=== PATIENT | female | born 1950 | race Caucasian/White ===

== ENCOUNTER → 2023-01-14 | Outpatient (REF) | payer MEDICARE, MEDICAID, SELFPAY ==
[2023-01-14 09:44] LABS: Absolute Lymphocyte Count 1.78 X10^3/uL (0.83-4.51); Absolute Neutrophil Count 5.6 X10^3/uL (2.0-7.7); Basophil# 0.03 X10^3/uL; Basophil% 0.4 % (0-1); Lymphocyte # 1.78 X10^3/ul (0.83-4.51); Lymphocyte % 21.8 % (19-41); Mean Corp Hgb Conc 28.6 g/dL (32-36); Mean Corpuscular Volume 94.3 fL (81-99); Mean Platelet Vol. 10.2 fl (6.2-12.0); Monocyte# 0.58 X10^3/uL; Monocyte% 7.1 % (0-10); NRBC Flagged by Analyzer 0 % (0-5); Neutrophil % 68.7 % (47-70); Platelet Count 566 K/mm3 (150-450); RBC Distribution Width CV 16.8 % (11.6-14.6); RBC Distribution Width SD 57.7 fl (35.1-43.9); Red Blood Count 3.71 M/mm3 (4.2-5.4); White Blood Count 8.2 K/mm3 (4.4-11.0)
[2023-01-14 09:59] LABS: Anion Gap 6 (5-15); BUN 12 mg/dL (7-18); BUN/Creat Ratio 25.7 RATIO (10-20); Calcium,Total 9.4 mg/dL (8.5-10.1); Chloride 107 mmol/L (98-107); Creatinine, Serum 0.47 mg/dL (0.55-1.02); EST Glomerular Filtration Rate 140 mL/min (>60); Est Glom Filt Rate - Afr Amer 169 mL/min (>60); Glucose 88 mg/dL (74-106); Sodium Level 140 mmol/L (136-145)
== END ==
LOC: OLS.WHLEAS 05:00
PROVIDERS: PCP Family Medicine; Visit Provider Internal Medicine
DX: I50.9 Heart failure, unspecified (principal)
CPT/HCPCS: 36415; 80048; 85025

== ENCOUNTER → 2023-01-15 | Outpatient (REF) | payer BC, MEDICAID, SELFPAY | LOC: OLS.WHLEAS 19:30 | PROVIDERS: PCP Family Medicine; Visit Provider Internal Medicine | DX: R19.7 Diarrhea, unspecified (principal); S82.401D Unspecified fracture of shaft of right fibula, subsequent encounter for closed fracture with routine healing | CPT/HCPCS: 87493 ==

== ENCOUNTER → 2023-01-21 | Outpatient (REF) | payer MEDICARE, MEDICAID, SELFPAY ==
[2023-01-21 08:43] LABS: Absolute Lymphocyte Count 1.43 X10^3/uL (0.83-4.51); Absolute Neutrophil Count 6.5 X10^3/uL (2.0-7.7); Basophil# 0.03 X10^3/uL; Basophil% 0.3 % (0-1); Lymphocyte # 1.43 X10^3/ul (0.83-4.51); Lymphocyte % 16.1 % (19-41); Mean Corp Hgb Conc 28.6 g/dL (32-36); Mean Corpuscular Hgb 26.4 pg (27.0-32.0); Mean Corpuscular Volume 92.3 fL (81-99); Mean Platelet Vol. 10.4 fl (6.2-12.0); Monocyte# 0.83 X10^3/uL; Monocyte% 9.3 % (0-10); NRBC Flagged by Analyzer 0 % (0-5); Neutrophil # 6.51 X10^3/uL (2.7-7.7); Neutrophil % 73.4 % (47-70); Platelet Count 560 K/mm3 (150-450); RBC Distribution Width CV 16.6 % (11.6-14.6); RBC Distribution Width SD 56.7 fl (35.1-43.9); Red Blood Count 3.79 M/mm3 (4.2-5.4); White Blood Count 8.9 K/mm3 (4.4-11.0)
[2023-01-21 08:58] LABS: Anion Gap 4 (5-15); BUN 10 mg/dL (7-18); BUN/Creat Ratio 21.9 RATIO (10-20); Calcium,Total 9.8 mg/dL (8.5-10.1); Chloride 103 mmol/L (98-107); Creatinine, Serum 0.46 mg/dL (0.55-1.02); EST Glomerular Filtration Rate 144 mL/min (>60); Est Glom Filt Rate - Afr Amer 174 mL/min (>60); Glucose 103 mg/dL (74-106); Potassium 4.2 mmol/L (3.5-5.1); Sodium Level 137 mmol/L (136-145)
== END ==
LOC: OLS.WHLEAS 05:00
PROVIDERS: PCP Family Medicine; Visit Provider Internal Medicine
DX: I50.9 Heart failure, unspecified (principal)
CPT/HCPCS: 36415; 80048; 85025

== ENCOUNTER → 2023-01-28 | Outpatient (REF) | payer MEDICARE, MEDICAID, SELFPAY ==
[2023-01-28 07:03] LABS: Absolute Lymphocyte Count 1.32 X10^3/uL (0.83-4.51); Absolute Neutrophil Count 6.1 X10^3/uL (2.0-7.7); Basophil# 0.03 X10^3/uL; Basophil% 0.4 % (0-1); Hematocrit 34.2 % (37-47); Hemoglobin 9.5 g/dL (12.0-15.0); Lymphocyte # 1.32 X10^3/ul (0.83-4.51); Lymphocyte % 15.9 % (19-41); Mean Corp Hgb Conc 27.8 g/dL (32-36); Mean Corpuscular Hgb 25.7 pg (27.0-32.0); Mean Corpuscular Volume 92.4 fL (81-99); Mean Platelet Vol. 10.2 fl (6.2-12.0); Monocyte# 0.72 X10^3/uL; Monocyte% 8.7 % (0-10); NRBC Flagged by Analyzer 0 % (0-5); Neutrophil # 6.11 X10^3/uL (2.7-7.7); Neutrophil % 73.7 % (47-70); Platelet Count 446 K/mm3 (150-450); RBC Distribution Width CV 17.1 % (11.6-14.6); RBC Distribution Width SD 58.3 fl (35.1-43.9); White Blood Count 8.3 K/mm3 (4.4-11.0)
[2023-01-28 07:11] LABS: Anion Gap 5 (5-15); BUN 12 mg/dL (7-18); BUN/Creat Ratio 33.1 RATIO (10-20); Calcium,Total 9.2 mg/dL (8.5-10.1); Chloride 107 mmol/L (98-107); Creatinine, Serum 0.36 mg/dL (0.55-1.02); EST Glomerular Filtration Rate 188 mL/min (>60); Est Glom Filt Rate - Afr Amer 227 mL/min (>60); Glucose 91 mg/dL (74-106); Potassium 3.9 mmol/L (3.5-5.1); Sodium Level 140 mmol/L (136-145)
== END ==
LOC: OLS.WHLEAS 05:00
PROVIDERS: PCP Family Medicine; Visit Provider Internal Medicine
DX: I50.9 Heart failure, unspecified (principal)
CPT/HCPCS: 36415; 80048; 85025

== ENCOUNTER → 2023-01-31 | Outpatient (REF) | payer MEDICARE, MEDICAID, SELFPAY ==
[2023-02-03 08:10] LABS: Color, Urine Yellow (Yellow); Glucose, Dipstick Normal (Normal); Ketone-Dipstick Negative (Negative); Leukocyte Esterase-Dipstick 100 /ul (Negative); Nitrite-Dipstick Positive (Negative); Occult Blood-Urine Negative /ul (Negative); Protein-Dipstick Negative (Negative); Specific Gravity, Urine 1.015 (1.002-1.030); Urine Bilirubin Dipstick Negative (Negative); Urine Clarity Clear (Clear); Urine Urobilinogen Normal (Normal)
== END ==
LOC: OLS.WHLEAS 16:35
PROVIDERS: PCP Family Medicine; Referring Provider Internal Medicine; Visit Provider Internal Medicine
DX: R41.82 Altered mental status, unspecified (principal)
CPT/HCPCS: 81002; 87086; 87088; 87186

== ENCOUNTER 2023-02-04 14:48 | Emergency (ER) | payer MEDICARE, MEDICAID, SELFPAY ==
[2023-02-04] VITALS (8 sets, daily range): BP systolic 96–134; BP diastolic 60–80; PULSE 76–83; RESP 18–25; TEMP 36.6–37.4; O2SAT 93–94; BMI 45.0
--- NOTE | 2023-02-04 14:54 | EDS_ITS ---
HPI History of Present Illness Chief Complaint: Mental Status Change Informant: other Narrative Narrative: Patient sent in by EMS from [facility] increased fever and altered mental status today. Reported Tmax 104 status post Tylenol. Patient confused during examination. Reports occasional cough. Denies vomiting. On exam noted a right lower posterior splint she states she had a fall and seen in [place]. From records in the system apparently had a urine 4 days ago in the system positive for infection yesterday presuming E. coli with sensitivity pending. From her paperwork she was started on Bactrim today. She is a DNR CCA. History of A-fib on atenolol digoxin and Eliquis and diltiazem. [facility] Medical History GERD (gastroesophageal reflux disease) HTN (hypertension) Muscle wasting Overactive bladder Respiratory failure Home Medications acetaminophen 500 mg capsule (Tylophen) 500 mg PO Q6H PRN 02/03/23 [History Last Taken Unknown] apixaban 5 mg tablet (Eliquis) 5 mg PO BID 02/03/23 [History Last Taken Unknown] atenolol 50 mg tablet 50 mg PO BID 02/03/23 [History Last Taken Unknown] digoxin 125 mcg (0.125 mg) tablet 125 mcg PO DAILY 02/03/23 [History Last Taken Unknown] diltiazem HCl 180 mg capsule,extended release 24 hr 180 mg PO DAILY 02/03/23 [H istory Last Taken Unknown] duloxetine 60 mg capsule,delayed release 60 mg PO DAILY 02/03/23 [History Last Taken Unknown] ferrous sulfate 325 mg (65 mg iron) tablet,delayed release 325 mg PO DAILY 01/24 06/17 [History Last Taken Unknown] furosemide 20 mg tablet (Lasix) 20 mg PO DAILY 02/03/23 [History Last Taken Unknown] gabapentin 300 mg capsule 300 mg PO TID 02/03/23 [History Last Taken Unknown] ipratropium 0.5 mg-albuterol 3 mg (2.5 mg base)/3 mL nebulization soln 3 ml inhalation Q4H PRN 02/03/23 [History Last Taken Unknown] loperamide 2 mg capsule (Imodium A-D) 2 mg PO Q6H PRN 02/03/23 [History Last Taken Unknown] magnesium oxide 400 mg (241.3 mg magnesium) tablet 400 mg PO DAILY 02/03/23 [History Last Taken Unknown] ondansetron 4 mg disintegrating tablet 4 mg PO Q6H 02/03/23 [History Last Taken Unknown] oxybutynin chloride 5 mg tablet,extended release 24 hr (Ditropan XL) 5 mg PO DAILY 02/03/23 [History Last Taken Unknown] potassium chloride 20 mEq tablet,extended release 40 meq PO TID 02/03/23 [History Last Taken Unknown] Allergy/AdvReac Type Severity Reaction Status Date / Time SYED Inhibitors Allergy Mild PT UNSURE Verified 02/04/23 14:54 OF REACTION ibuprofen Allergy Intermediate PT UNSURE Uncoded 02/03/23 09:33 OF REACTION Surgical History (Updated 02/03/23 @ 09:31 by Aminah Koch) History of right knee joint replacement Hx of cholecystectomy Social History (Updated 02/03/23 @ 09:46 by Aminah Koch) Smoking Status: Unknown if ever smoked alcohol intake: never substance use type: does not use ROS ROS ED Review of Systems ROS Unobtainable: due to mental status EXAM Physical Exam Const Vital Signs: 02/04/23 14:49 02/04/23 14:54 02/04/23 14:58 Temperature 99.3 F H Temperature Source Oral Pulse Rate 82 Respiratory Rate 19 H Respiratory Effort Normal Non-Labored Blood Pressure 116/75 Blood Pressure Mean 88 Pulse Ox Oxygen Delivery Method Room Air 02/04/23 15:06 02/04/23 15:07 02/04/23 16:04 Temperature 99.1 F 99 F Temperature Source Oral Oral Pulse Rate 83 79 Respiratory Rate 25 H 20 H Respiratory Effort Blood Pressure 134/75 H 119/80 Blood Pressure Mean 94 93 Pulse Ox 93 93 Oxygen Delivery Method Room Air Room Air Room Air 02/04/23 16:53 02/04/23 16:53 02/04/23 17:01 Temperature 98 F 98 F 98 F Temperature Source Oral Oral Oral Pulse Rate 77 77 76 Respiratory Rate 22 H 22 H 18 Respiratory Effort Blood Pressure 119/80 119/80 96/60 Blood Pressure Mean 93 93 72 Pulse Ox 94 94 93 Oxygen Delivery Method Room Air Room Air Room Air 02/04/23 17:01 Temperature 98 F Temperature Source Oral Pulse Rate 76 Respiratory Rate 25 H Respiratory Effort Blood Pressure 96/60 Blood Pressure Mean 72 Pulse Ox 93 Oxygen Delivery Method Room Air Positive well nourished and well developed Constitutional Narrative: Pleasantly confused, nontoxic General Appearance ED: well developed and NAD HEENT Reports moist mucous membranes normocephalic and atraumatic Eyes PERRL, EOMs intact bilaterally and conjunctivae normal General Eye ED: Yes normal appearance of both eyes Neck no lymphadenopathy and supple General: Negative for tenderness Chest Wall Chest: Negative for tenderness Resp normal respiratory effort and normal air movement Effort and Inspection: symmetric chest movement; Negative for respiratory distress Cardio regular rate, regular rhythm and no murmurs Peripheral Pulses: pulses 2+ throughout GI normal to inspection, nondistended, normoactive bowel sounds and non-tender Palpation: Negative for guarding or rebound tenderness present Back/Spine no CVA tenderness and no thoracic nor lumbar tenderness Extremity Extremity Narrative: Right lower extremity: Posterior splint with Syed wrap dressing. General Extremety ED: Negative for edema or tenderness General Extremity: Negative for edema Neuro no sensory deficits noted Neuro Narrative: Alert to person only. Sensorium / Orientation: awake and alert Skin no rashes or lesions noted and no wounds MDM MDM MDM Narrative Medical decision making narrative: Interventions / MDM: Differential diagnosis: UTI, cephalopathy, electrolyte abnormalities, sepsis Diagnosis considered but do not suspect: Intracranial hemorrhage, however CT negative. Pneumonia however x-ray negative. My EKG interpretation: Sinus rate of 82, no ST or T wave changes QTc 406. Imaging independently reviewed and interpreted by myself: CT brain: No process; Chest x-ray 1 view: No acute process. Right tib-fib 2 views: Healing mid tib- fib fracture and proximal fibular fracture. External documents reviewed: Records no urine positive in 4 days ago culture resulted yesterday presumed E. coli with sensitivity pending. Test considered but not ordered:N/A ED course: Patient confused reported fever blood pressure. Sepsis labs were ordered. CT brain chest x-ray urine. Reported in system no UTI started on antibiotics morning with fever encephalopathy likely the source. Digoxin level also added. White count returned at 25 up from 13, recheck patient she was being changed she had liquid stools that was dark, well kept consistent. From records no have chronic loose stools for least couple months. Also took down patient's padding her right lower extremity which was posterior long-leg splint. There is no ul cerations or breakdowns. This was padded up on lower leg and rewrapped. Renal function normal lactic acid 1.7 blood culture pending. Blood pressure stable. With UTI except left leukocytosis I did speak with Dr. horvath for admission. 1700: She is valued by hospitalist in the ED, she was requesting to go back to nursing facility, hospitalist did speak with Dr. Olivares, no sepsis criteria bl ood pressure stable. Reported that they can continue IV antibiotics there pending the sensitivity results. She is followed by orthopedics Dr. Arnett for which she will need to see for continued management. With patient being managed at his nursing facility, can discharge back with continued antibiotics. Covid and flu negative. Re-evaluation: stable Disposition discussed with patient/family/significant other: Case discussed with consulting clinician: hospitalist. This note was generated with [employer] dictation software. It may contain incorrect words, spelling, and punctuation that were not noted in checking the note before signing. Lab Data Attestation: I reviewed the patient's lab results. Labs: Laboratory Results - last 24 hr 02/04/23 02/04/23 15:00 15:54 WBC 25.4 H RBC 4.11 L Hgb 10.7 L Hct 36.2 L MCV 88.1 MCH 26.0 L MCHC 29.6 L RDW Std Deviation 55.7 H RDW Coeff of Aris 17.3 H Plt Count 559 H MPV 9.6 Immature Gran % (Auto) 1.900 H Neut % (Auto) 90.7 H Lymph % (Auto) 2.4 L Mccone % (Auto) 4.7 Eos % (Auto) 0.0 Baso % (Auto) 0.3 Absolute Neuts (auto) 23.0 H Absolute Lymphs (auto) 0.61 L Nucleated RBC % 0.2 Differential Comment SCANNED PT 20.3 H INR 1.7 APTT 62.2 H Sodium 136 Potassium 3.8 Chloride 102 Carbon Dioxide 27.0 Anion Gap 7 BUN 10 Creatinine 0.64 Estim Creat Clear Calc 46.43 Est GFR (MDRD) Af Amer 117 Est GFR (MDRD) Non-Af 97 BUN/Creatinine Ratio 15.6 Glucose 102 Lactic Acid 1.7 Calcium 10.0 Total Bilirubin 0.60 AST 27 ALT 25 Alkaline Phosphatase 235 H Total Protein 7.6 Albumin 2.0 L Globulin 5.6 H Albumin/Globulin Ratio 0.4 L Urine Color Yellow Urine Clarity Cloudy Urine pH 5.0 Ur Specific [place] 1.015 Urine Protein 30 H Urine Glucose (UA) Normal Urine Ketones Negative Urine Occult Blood 150 H Urine Nitrite Positive H Urine Bilirubin Negative Urine Urobilinogen Normal Ur Leukocyte Esterase 500 H Urine RBC 0-5 SEEN Urine WBC >100 SEEN Ur Squamous Epith Cells 0 SEEN Urine Bacteria 2+ Urine Mucus 0 SEEN Digoxin 1.12 Radiography Diagnostic Testing: Clinical Impression(s) from Imaging Studies Brain CT 02/04/23 15:06 IMPRESSION: Atrophy and age-related changes of the brain. Electronically Signed: Jason Jeffrey DO at 16:52 EDT , Tibia/Fibula X-Ray 02/04/23 15:53 IMPRESSION: Healing tibial and fibular shaft fractures. Electronically Signed: Jason Jeffrey DO at 16:29 EDT , Chest X-Ray 02/04/23 16:05 IMPRESSION: No radiographic evidence of acute cardiopulmonary disease. Gaseous distended bowel loops are noted in the visualized upper abdomen. Electronically Signed: Jason Jeffrey DO at 16:27 EDT , Discharge Plan Triage Chief Complaint: Mental Status Change Other Complaint: Fever ED Provider: Jorge Frankel Dx/Rx/DC Orders Clinical Impression: Encephalopathy, Acute UTI Prescriptions: No Action ipratropium-albuterol 0.5 mg-3 mg(2.5 mg base)/3 mL solution for nebulization 3 ml inhalation Q4H PRN loperamide [Imodium A-D] 2 mg capsule 2 mg PO Q6H PRN diltiazem HCl 180 mg capsule,extended release 24hr 180 mg PO DAILY magnesium oxide 400 mg (241.3 mg magnesium) tablet 400 mg PO DAILY oxybutynin chloride [Ditropan XL] 5 mg tablet extended release 24hr 5 mg PO DAILY gabapentin 300 mg capsule 300 mg PO TID digoxin 125 mcg (0.125 mg) tablet 125 mcg PO DAILY furosemide [Lasix] 20 mg tablet 20 mg PO DAILY ferrous sulfate 325 mg (65 mg iron) tablet,delayed release (DR/EC) 325 mg PO DAILY ondansetron 4 mg tablet,disintegrating 4 mg PO Q6H acetaminophen [Tylophen] 500 mg capsule 500 mg PO Q6H PRN atenolol 50 mg tablet 50 mg PO BID duloxetine 60 mg capsule,delayed release(DR/EC) 60 mg PO DAILY Eliquis 5 mg tablet 5 mg PO BID potassium chloride 20 mEq tablet extended release 40 meq PO TID Primary Care Provider: Patric Laughlin Referrals: Tatiana Arnett MD [Non-Staff] - 1 Week Patric Laughlin MD [Primary Care Provider] - Skip Olivares MD [Med Staff - Active Staff] - 1 Day Activity Restrictions/Additional Instructions: CT brain negative. Chest x-ray negative. Labs white count 25 urine positive for infection. Normal creatinine 0.64. Lactic acid normal. Digoxin levels normal. Hospitalist Dr. Horvath discussed with Dr. Olivares, patient will be continued on antibiotics Rocephin at facility. Patient splinting was padded in the ER to the right lower extremity. Patient is followed by Dr. Arnett. Disposition Disposition: [facility] Discharge Location: [facility]
--- NOTE | 2023-02-04 15:04 | EKG12_ITS ---
Test Reason : GENERAL Blood Pressure : / mmHG Vent. Rate : 082 BPM Atrial Rate : 082 BPM P-R Int : 180 ms QRS Dur : 108 ms QT Int : 348 ms P-R-T Axes : 033 -12 026 degrees QTc Int : 406 ms Normal sinus rhythm Normal ECG Confirmed by ARMAND RAMSEY, PATY ([id number]), mapping editor KENNETH KAUR ([id number]) on 02/06/2023 1:42:21 PM Referred By: Confirmed By:PATY ACUNA MD
--- NOTE | 2023-02-04 15:06 | CT_ITS ---
STUDY: CT BRAIN WITHOUT CONTRAST REASON FOR EXAM: Female, 72 years old. Confusion RADIATION DOSAGE (If Supplied By Facility): CTDIvol = ( 44.99 ) mGy, DLP = ( 779.24 ) mGycm TECHNIQUE: Transaxial CT imaging of the brain was performed without administration of intravenous contrast material. Individualized dose optimization techniques were used for this CT. COMPARISON: No relevant priors. FINDINGS: Normal soft tissue structures. Normal calvarium. Prominence of the ventricles and extra-axial spaces with mild atrophy. Mild white matter microangiopathic ischemic changes of the cerebral hemispheres. Normal basal ganglia and thalami. Normal brainstem. Normal cerebellum. There is no intracranial hemorrhage. There are no findings of an acute ischemic infarction. Normal visualized paranasal sinuses. CT/Brain/Head without Contrast IMPRESSION: Atrophy and age-related changes of the brain. Electronically Signed: Jason Jeffrey DO at 16:52 EDT ,
[2023-02-04 15:20] LABS: Absolute Lymphocyte Count 0.61 X10^3/uL (0.83-4.51); Basophil# 0.07 X10^3/uL; Basophil% 0.3 % (0-1); Hematocrit 36.2 % (37-47); Hemoglobin 10.7 g/dL (12.0-15.0); Lymphocyte # 0.61 X10^3/ul (0.83-4.51); Lymphocyte % 2.4 % (19-41); Mean Corp Hgb Conc 29.6 g/dL (32-36); Mean Corpuscular Volume 88.1 fL (81-99); Mean Platelet Vol. 9.6 fl (6.2-12.0); Monocyte% 4.7 % (0-10); NRBC Flagged by Analyzer 0.2 % (0-5); Neutrophil # 23.02 X10^3/uL (2.7-7.7); Neutrophil % 90.7 % (47-70); POSITIVE DIFFERENTIAL YES; Platelet Count 559 K/mm3 (150-450); RBC Distribution Width CV 17.3 % (11.6-14.6); RBC Distribution Width SD 55.7 fl (35.1-43.9); Red Blood Count 4.11 M/mm3 (4.2-5.4); White Blood Count 25.4 K/mm3 (4.4-11.0)
[2023-02-04 15:21] LABS: International Normalized Ratio 1.7; Prothrombin Time (Protime)PT. 20.3 SECONDS (11.7-14.9)
[2023-02-04 15:22] LABS: Partial Thromboplast Time 62.2 Seconds (24.1-36.2)
[2023-02-04 15:23] LABS: Differential Indicated SCAN CRITERIA MET
[2023-02-04 15:37] LABS: Lactic Acid 1.7 mmol/L (0.4-1.9)
[2023-02-04 15:48] LABS: Differential Comment SCANNED
--- NOTE | 2023-02-04 15:53 | RAD_ITS ---
INDICATION: fracture eval EXAMINATION/TECHNIQUE: X-RAY - RIGHT XR Tibia/Fibula 3 VIEWS COMPARISON: FINDINGS: SOFT TISSUES: There is soft tissue swelling. No radiopaque foreign body. BONES/JOINTS: There is a partially visualized total knee replacement. Healing fractures are noted at the midshaft of the tibia and the proximal fibular shaft. Overlying cast obscures bony details. RAD/Tibia & Fibula 2 Views IMPRESSION: Healing tibial and fibular shaft fractures. Electronically Signed: Jason Jeffrey DO at 16:29 EDT Reading Location ID and State: [facility] / [place] Tel [phone], Service support ,
[2023-02-04] MEDS: 0.9% Normal Saline (1000mL) 1,000 ML 150 ML IV (15:56)
[2023-02-04] MEDS: Ceftriaxone 1 GM/50 ML BAG IV (15:57)
--- NOTE | 2023-02-04 16:01 | ED.RN ---
DELAY IN SECOND BLOOD CULTURES, ANTIBIOTICS, AND FLUIDS DUE TO RECTAL EXAM AND CLEANING UP SOILED PT REQUIRING MULTIPLE NURSES. DARK LIQUID STOOLS NOTED AND DR BARRETO MADE AWARE.
[2023-02-04 16:04] LABS: Mucous, Urine 0 SEEN /hpf (<or=2+); Squamous Epithelial Cells - UA 0 SEEN /hpf (5-10)
--- NOTE | 2023-02-04 16:05 | RAD_ITS ---
INDICATION: cough EXAMINATION/TECHNIQUE: X-RAY - XR Chest 1 View COMPARISON: FINDINGS: LINES/DEVICES: None. LUNGS: No consolidation, edema or effusion. No pneumothorax. MEDIASTINUM AND CARDIOVASCULAR STRUCTURES: Cardiac silhouette not enlarged. Ectatic aortic arch. Central airways and mediastinal contour are unremarkable. BONES AND SOFT TISSUES: There is old deformity of the right shoulder. There are gaseous distended bowel loops in the visualized upper abdomen. RAD/Chest 1 View (Portable) IMPRESSION: No radiographic evidence of acute cardiopulmonary disease. Gaseous distended bowel loops are noted in the visualized upper abdomen. Electronically Signed: Jason Jeffrey DO at 16:27 EDT ,
[2023-02-04 16:15] LABS: Color, Urine Yellow (Yellow); Glucose, Dipstick Normal (Normal); Ketone-Dipstick Negative (Negative); Leukocyte Esterase-Dipstick 500 /ul (Negative); Nitrite-Dipstick Positive (Negative); Occult Blood-Urine 150 /ul (Negative); Protein-Dipstick 30 mg/dl (Negative); Specific Gravity, Urine 1.015 (1.002-1.030); Urine Bilirubin Dipstick Negative (Negative); Urine Clarity Cloudy (Clear); Urine Urobilinogen Normal (Normal)
[2023-02-04 16:24] LABS: Bacteria 2+ /hpf (None Seen); Red Blood Cells-Urine 0-5 SEEN /hpf (0-5); White Blood Cells >100 SEEN /hpf (0-5)
[2023-02-04 16:37] LABS: ALB/GLOB Ratio 0.4 RATIO (0.9-2.4); AST(SGOT) 27 U/L (15-37); Alanine Aminotransfer ALT/SGPT 25 U/L (13-56); Alkaline Phosphatase 235 U/L (45-117); Anion Gap 7 (5-15); BUN 10 mg/dL (7-18); BUN/Creat Ratio 15.6 RATIO (10-20); Chloride 102 mmol/L (98-107); Creatinine, Serum 0.64 mg/dL (0.55-1.02); EST Glomerular Filtration Rate 97 mL/min (>60); Est Glom Filt Rate - Afr Amer 117 mL/min (>60); Estimated Creatinine Clearance 46.43 ml/min; Globulin 5.6 g/dL (2.2-4.2); Glucose 102 mg/dL (74-106); Potassium 3.8 mmol/L (3.5-5.1); Protein, Total 7.6 g/dL (6.4-8.2); Sodium Level 136 mmol/L (136-145)
[2023-02-04 16:46] LABS: Digoxin Level 1.12 ng/mL (0.80-2.00)
--- NOTE | 2023-02-04 16:56 | ED.RN ---
ATTEMPTED TO CALL DAUGHTER KALYAN, SENT TO [employer]ICEMAIL.
--- NOTE | 2023-02-04 16:58 | NURSING ---
DR GISSELLE BARRETO
--- NOTE | 2023-02-04 17:00 | ED.RN ---
DAUGHTER NANDO CALLED BACK, UPDATED ON PROBABLE ADMISSION.
--- NOTE | 2023-02-04 17:01 | NURSING ---
MED SURG TERELETSKY UTI, ENCEPHALOPATHY
--- NOTE | 2023-02-04 17:28 | NURSING ---
CALLED [facility], ETA IS 3 HRS
--- NOTE | 2023-02-04 18:46 | ED.RN ---
UPDATED DAUGHTER CRYSTAL ON PATIENT DISCHARGE. PT CONFUSED, RIPPED IV AND PUREWICK OUT. PT CHANGED INTO NEW GOWN AND CLEANED.
--- NOTE | 2023-02-04 18:57 | ED.RN ---
CALLED REPORT BACK TO [facility], SPOKE WITH HOLLI.
--- NOTE | 2023-02-05 07:54 | ED.RN ---
received a positive blood culture result from lab. Pt was discharged back to shelter. Dr Santiago spoke with Dr Olivares, the physician over the [facility]. The patient is already on IV antibiotics at the shelter, no change in treatment is needed.
== END 2023-02-04 19:32 | disposition skilled nursing facility (03) ==
PROVIDERS: Emergency Provider Emergency Medicine; PCP Family Medicine; Visit Provider Emergency Medicine
DX: N39.0 Urinary tract infection, site not specified (principal); I48.91 Unspecified atrial fibrillation; Z20.822 Contact with and (suspected) exposure to COVID-19; I10 Essential (primary) hypertension; G93.40 Encephalopathy, unspecified; S82.201D Unspecified fracture of shaft of right tibia, subsequent encounter for closed fracture with routine healing; S82.831D Other fracture of upper and lower end of right fibula, subsequent encounter for closed fracture with routine healing; W19.XXXD Unspecified fall, subsequent encounter; Z66 Do not resuscitate; Z79.01 Long term (current) use of anticoagulants; Z79.899 Other long term (current) drug therapy
CPT/HCPCS: 70450; 71045; 73590; 80053; 80162; 81001; 82274; 83605; 85025; 85610; 85730; 87040; 87077; 87086; 87088; 87186; 87428; 93005; 96361; 96365; 99285; J7030; A4216

== ENCOUNTER → 2023-02-04 | Outpatient (REF) | payer MEDICARE, MEDICAID, SELFPAY ==
[2023-02-04 08:30] LABS: Absolute Lymphocyte Count 1.05 X10^3/uL (0.83-4.51); Absolute Neutrophil Count 11.2 X10^3/uL (2.0-7.7); Basophil# 0.04 X10^3/uL; Basophil% 0.3 % (0-1); Hematocrit 33.4 % (37-47); Hemoglobin 9.5 g/dL (12.0-15.0); Lymphocyte # 1.05 X10^3/ul (0.83-4.51); Lymphocyte % 7.7 % (19-41); Mean Corp Hgb Conc 28.4 g/dL (32-36); Mean Corpuscular Hgb 25.7 pg (27.0-32.0); Mean Corpuscular Volume 90.3 fL (81-99); Mean Platelet Vol. 10.1 fl (6.2-12.0); Monocyte# 1.22 X10^3/uL; Monocyte% 8.9 % (0-10); NRBC Flagged by Analyzer 0 % (0-5); Neutrophil # 11.23 X10^3/uL (2.7-7.7); Neutrophil % 82.1 % (47-70); Platelet Count 533 K/mm3 (150-450); RBC Distribution Width CV 17.2 % (11.6-14.6); White Blood Count 13.7 K/mm3 (4.4-11.0)
[2023-02-04 08:39] LABS: Anion Gap 5 (5-15); BUN 8 mg/dL (7-18); BUN/Creat Ratio 19.1 RATIO (10-20); Calcium,Total 9.6 mg/dL (8.5-10.1); Chloride 104 mmol/L (98-107); Creatinine, Serum 0.42 mg/dL (0.55-1.02); EST Glomerular Filtration Rate 158 mL/min (>60); Est Glom Filt Rate - Afr Amer 192 mL/min (>60); Glucose 113 mg/dL (74-106); Sodium Level 137 mmol/L (136-145)
== END ==
LOC: OLS.WHLEAS 05:00
PROVIDERS: PCP Family Medicine; Visit Provider Internal Medicine
DX: I50.9 Heart failure, unspecified (principal)
CPT/HCPCS: 36415; 80048; 85025

== ENCOUNTER → 2023-02-06 | Outpatient (REF) | payer MEDICARE, MEDICAID, SELFPAY ==
[2023-02-06 08:44] LABS: Absolute Lymphocyte Count 1.54 X10^3/uL (0.83-4.51); Absolute Neutrophil Count 18.1 X10^3/uL (2.0-7.7); Basophil# 0.03 X10^3/uL; Basophil% 0.1 % (0-1); Hematocrit 30.4 % (37-47); Hemoglobin 8.8 g/dL (12.0-15.0); Lymphocyte # 1.54 X10^3/ul (0.83-4.51); Lymphocyte % 7.3 % (19-41); Mean Corp Hgb Conc 28.9 g/dL (32-36); Mean Corpuscular Hgb 25.6 pg (27.0-32.0); Mean Corpuscular Volume 88.4 fL (81-99); Mean Platelet Vol. 10.6 fl (6.2-12.0); Monocyte# 1.37 X10^3/uL; Monocyte% 6.5 % (0-10); NRBC Flagged by Analyzer 0 % (0-5); Neutrophil # 18.07 X10^3/uL (2.7-7.7); Neutrophil % 85.1 % (47-70); Platelet Count 454 K/mm3 (150-450); RBC Distribution Width CV 17.7 % (11.6-14.6); RBC Distribution Width SD 57.9 fl (35.1-43.9); Red Blood Count 3.44 M/mm3 (4.2-5.4); White Blood Count 21.2 K/mm3 (4.4-11.0)
[2023-02-06 08:55] LABS: Anion Gap 5 (5-15); BUN 19 mg/dL (7-18); Calcium,Total 9.6 mg/dL (8.5-10.1); Chloride 106 mmol/L (98-107); Creatinine, Serum 0.61 mg/dL (0.55-1.02); EST Glomerular Filtration Rate 102 mL/min (>60); Est Glom Filt Rate - Afr Amer 124 mL/min (>60); Glucose 97 mg/dL (74-106); Potassium 4.1 mmol/L (3.5-5.1); Sodium Level 136 mmol/L (136-145)
== END ==
LOC: OLS.WHLEAS 05:00
PROVIDERS: PCP Family Medicine; Visit Provider Internal Medicine
DX: A41.89 Other specified sepsis (principal); S82.401D Unspecified fracture of shaft of right fibula, subsequent encounter for closed fracture with routine healing; S82.201D Unspecified fracture of shaft of right tibia, subsequent encounter for closed fracture with routine healing
CPT/HCPCS: 36415; 80048; 85025

== ENCOUNTER → 2023-02-10 | Outpatient (REF) | payer MEDICARE, MEDICAID, SELFPAY ==
[2023-02-10 07:36] LABS: Absolute Lymphocyte Count 1.34 X10^3/uL (0.83-4.51); Absolute Neutrophil Count 9.4 X10^3/uL (2.0-7.7); Basophil# 0.05 X10^3/uL; Basophil% 0.4 % (0-1); Hematocrit 31.8 % (37-47); Hemoglobin 9.1 g/dL (12.0-15.0); Lymphocyte # 1.34 X10^3/ul (0.83-4.51); Mean Corp Hgb Conc 28.6 g/dL (32-36); Mean Corpuscular Hgb 25.3 pg (27.0-32.0); Mean Corpuscular Volume 88.3 fL (81-99); Mean Platelet Vol. 10.5 fl (6.2-12.0); Monocyte# 0.87 X10^3/uL; Monocyte% 7.1 % (0-10); NRBC Flagged by Analyzer 0.2 % (0-5); Neutrophil # 9.37 X10^3/uL (2.7-7.7); Neutrophil % 77.1 % (47-70); Platelet Count 523 K/mm3 (150-450); RBC Distribution Width CV 18.2 % (11.6-14.6); RBC Distribution Width SD 59.7 fl (35.1-43.9); White Blood Count 12.2 K/mm3 (4.4-11.0)
[2023-02-10 08:06] LABS: ALB/GLOB Ratio 0.4 RATIO (0.9-2.4); AST(SGOT) 11 U/L (15-37); Alanine Aminotransfer ALT/SGPT 16 U/L (13-56); Albumin, Serum 1.9 g/dL (3.2-5.0); Alkaline Phosphatase 118 U/L (45-117); Anion Gap 7 (5-15); BUN 10 mg/dL (7-18); BUN/Creat Ratio 21.7 RATIO (10-20); Bilirubin, Direct 0.15 mg/dL (0.00-0.30); Chloride 107 mmol/L (98-107); Creatinine, Serum 0.46 mg/dL (0.55-1.02); EST Glomerular Filtration Rate 142 mL/min (>60); Est Glom Filt Rate - Afr Amer 172 mL/min (>60); Globulin 4.8 g/dL (2.2-4.2); Glucose 102 mg/dL (74-106); Magnesium 1.7 mg/dL (1.6-2.6); Potassium 3.7 mmol/L (3.5-5.1); Protein, Total 6.7 g/dL (6.4-8.2); Sodium Level 139 mmol/L (136-145)
== END ==
LOC: OLS.WHLEAS 05:00
PROVIDERS: PCP Family Medicine; Visit Provider Internal Medicine
DX: A41.89 Other specified sepsis (principal); Z79.899 Other long term (current) drug therapy; K56.7 Ileus, unspecified
CPT/HCPCS: 36415; 80053; 82248; 83735; 85025

== ENCOUNTER 2023-02-13 12:24 | Inpatient (IN) | payer MEDICARE, MEDICAID, SELFPAY ==
[2023-02-13 12:25] VITALS: BP 129/99; PULSE 63; RESP 14; TEMP 37.2; O2SAT 100
--- NOTE | 2023-02-13 13:52 | CT_ITS ---
STUDY: CT ABDOMEN AND PELVIS WITH CONTRAST REASON FOR EXAM: Female, 72 years old. Concern for ileus RADIATION DOSAGE (If Supplied By Facility): CTDIvol = ( 20.40 ) mGy, DLP = ( 1319.14 ) mGycm TECHNIQUE: Transaxial images were obtained from the dome of the diaphragm to the symphysis pubis without oral contrast. IV 100mL [id number]-300 was administered. Sagittal and coronal images were reconstructed. Individualized dose optimization techniques were used for this CT. COMPARISON: None. FINDINGS: Minimal degree of bibasilar linear atelectasis. Coronary artery calcification. Normal liver. There are surgical clips in the gallbladder fossa consistent with a prior cholecystectomy. Normal spleen. Normal pancreas. Normal bilateral adrenal glands. Normal right kidney. Normal left kidney. Normal visualized stomach. Normal small intestine. Diffuse gaseous distention of the colon most pronounced in the ascending colon and transverse colon. Gas is seen in the rectum as well as in the sigmoid colon. The appendix is visualized and appears normal. Normal abdominal aorta. Normal inferior vena cava. Normal retroperitoneum. Normal urinary bladder. Normal abdominal wall. Destruction of the right femoral head with cephalic migration and nasal acetabulum formation. CT/Abdomen/Pelvis W IV Cont ONLY IMPRESSION: Findings suggestive of a colonic ileus. Electronically Signed: Erick Galarza MD at 15:37 EDT ,
[2023-02-13 14:14] LABS: Absolute Lymphocyte Count 1.69 X10^3/uL (0.83-4.51); Absolute Neutrophil Count 13.9 X10^3/uL (2.0-7.7); Basophil# 0.05 X10^3/uL; Basophil% 0.3 % (0-1); Hematocrit 34.6 % (37-47); Hemoglobin 10.2 g/dL (12.0-15.0); Lymphocyte # 1.69 X10^3/ul (0.83-4.51); Lymphocyte % 10.1 % (19-41); Mean Corp Hgb Conc 29.5 g/dL (32-36); Mean Corpuscular Hgb 25.1 pg (27.0-32.0); Mean Corpuscular Volume 85.2 fL (81-99); Mean Platelet Vol. 9.5 fl (6.2-12.0); Monocyte# 0.67 X10^3/uL; NRBC Flagged by Analyzer 0 % (0-5); Neutrophil # 13.87 X10^3/uL (2.7-7.7); Neutrophil % 83.3 % (47-70); Platelet Count 663 K/mm3 (150-450); RBC Distribution Width CV 18.3 % (11.6-14.6); RBC Distribution Width SD 57.3 fl (35.1-43.9); Red Blood Count 4.06 M/mm3 (4.2-5.4); White Blood Count 16.7 K/mm3 (4.4-11.0)
[2023-02-13 14:19] VITALS: BMI 47.0
[2023-02-13 14:24] VITALS: BP 110/71; PULSE 60; RESP 18; TEMP 36.7; O2SAT 95
[2023-02-13 14:36] LABS: ALB/GLOB Ratio 0.3 RATIO (0.9-2.4); AST(SGOT) 30 U/L (15-37); Alanine Aminotransfer ALT/SGPT 22 U/L (13-56); Albumin, Serum 1.8 g/dL (3.2-5.0); Alkaline Phosphatase 136 U/L (45-117); Anion Gap 4 (5-15); BUN 9 mg/dL (7-18); BUN/Creat Ratio 16.9 RATIO (10-20); Chloride 102 mmol/L (98-107); Creatinine, Serum 0.53 mg/dL (0.55-1.02); EST Glomerular Filtration Rate 120 mL/min (>60); Est Glom Filt Rate - Afr Amer 145 mL/min (>60); Estimated Creatinine Clearance 40.81 ml/min; Globulin 5.5 g/dL (2.2-4.2); Glucose 115 mg/dL (74-106); Lipase 19 U/L (13-75); Protein, Total 7.3 g/dL (6.4-8.2); Sodium Level 133 mmol/L (136-145)
[2023-02-13 14:38] LABS: Lactic Acid 1.3 mmol/L (0.4-1.9)
[2023-02-13] MEDS: Piperacil/Tazobactam 3.375 GM in 0.9% Normal Saline (50mL MB+) 50 ML IV (15:01)
--- NOTE | 2023-02-13 15:10 | EDS_ITS ---
HPI History of Present Illness Chief Complaint: Abd Pain PFSH PFSH
--- NOTE | 2023-02-13 15:10 | EX.ED.DYSGE1 ---
HPI History of Present Illness Chief Complaint: Abd Pain [facility] Medical History GERD (gastroesophageal reflux disease) HTN (hypertension) Muscle wasting Overactive bladder Respiratory failure Home Medications acetaminophen 500 mg capsule (Tylophen) 500 mg PO Q6H PRN 02/03/23 [History Last Taken Unknown] apixaban 5 mg tablet (Eliquis) 5 mg PO BID 02/03/23 [History Last Taken Unknown] atenolol 50 mg tablet 50 mg PO BID 02/03/23 [History Last Taken Unknown] digoxin 125 mcg (0.125 mg) tablet 125 mcg PO DAILY 02/03/23 [History Last Taken Unknown] diltiazem HCl 180 mg capsule,extended release 24 hr 180 mg PO DAILY 02/03/23 [History Last Taken Unknown] duloxetine 60 mg capsule,delayed release 60 mg PO DAILY 02/03/23 [History Last Taken Unknown] ferrous sulfate 325 mg (65 mg iron) tablet,delayed release 325 mg PO DAILY 02/03/23 [History Last Taken Unknown] furosemide 20 mg tablet (Lasix) 20 mg PO DAILY 02/03/23 [History Last Taken Unknown] gabapentin 300 mg capsule 300 mg PO TID 02/03/23 [History Last Taken Unknown] ipratropium 0.5 mg-albuterol 3 mg (2.5 mg base)/3 mL nebulization soln 3 ml inhalation Q4H PRN 02/03/23 [History Last Taken Unknown] loperamide 2 mg capsule (Imodium A-D) 2 mg PO Q6H PRN 02/03/23 [History Last Taken Unknown] magnesium oxide 400 mg (241.3 mg magnesium) tablet 400 mg PO DAILY 02/03/23 [History Last Taken Unknown] ondansetron 4 mg disintegrating tablet 4 mg PO Q6H 02/03/23 [History Last Taken Unknown] oxybutynin chloride 5 mg tablet,extended release 24 hr (Ditropan XL) 5 mg PO DAILY 02/03/23 [History Last Taken Unknown] potassium chloride 20 mEq tablet,extended release 40 meq PO TID 02/03/23 [History Last Taken Unknown] Allergy/AdvReac Type Severity Reaction Status Date / Time HEATHER Inhibitors Allergy Mild PT UNSURE Verified 02/13/23 17:35 OF REACTION ibuprofen Allergy Intermediate itchy Uncoded 02/13/23 17:35 Surgical History History of right knee joint replacement Hx of cholecystectomy Social History (Updated 02/03/23 @ 09:46 by Aminah Koch) housing: jail Smoking Status: Former smoker alcohol intake: never substance use type: does not use EXAM Physical Exam Const Vital Signs: 02/13/23 12:25 02/13/23 14:24 02/13/23 15:29 Temperature 99 F 98.1 F 98.1 F Temperature Source Temporal Oral Oral Pulse Rate 63 60 63 Respiratory Rate 14 18 18 Blood Pressure 129/99 H 110/71 108/49 L Blood Pressure Mean 109 84 68 Pulse Ox 100 95 94 Oxygen Delivery Method Room Air Room Air Room Air MDM MDM MDM Narrative Medical decision making narrative: HISTORY OF PRESENT ILLNESS: 72-year-old female here with concern for ileus. She has no symptoms. No abdominal pain, no vomiting, she notes diarrhea but denies any melena or hematochezia. Denies any fever or chills. She is not feel sick in any way. REVIEW OF SYSTEMS: Pertinent positives: None Pertinent negatives: Chest pain, cough, abdominal pain, nausea, vomiting, urinary complaints, fever, chills PHYSICAL EXAM: Nursing triage notes reviewed, Vital signs reviewed Constitutional: please see mdm HENT: MMM Eyes: Pupils equal round and reactive to light, Extraocular muscles intact Neck: No stridor, no JVD, full neck ROM Lungs: Clear to auscultation, No wheezing or rales. No increased work of breathing, no conversational dyspnea, no accessory muscle use, no nasal flaring. No respiratory distress noted Heart: Regular rate and rhythm, No murmurs, No rubs and No gallops, 2+ distal pulses (radial, femoral, posterior tibial) in all extremities Abdomen: Soft, there is no tenderness, rigidity, rebound or guarding, no obvious peritoneal signs, no palpable pulsatile abdominal masses, no auscultated abdominal bruit : No CVAT Extremities: Obvious deformity right lower extremity with splint in Neuro: No focal neurological deficits, cranial nerves II through XII intact, 5/5 strength in all extremities. Intact sensation to light touch in all extremities, 2+ reflexes bilateral patella tendons. No ataxia. Skin: Dry skin, no obvious erythema, fluctuance or induration, no crepitus or bullae MEDICAL DECISION MAKING: Chief Complaint: Concern for ileus External records reviewed: Positive blood cultures on 02/04/2023 for E. coli, positive urine culture for E. coli Factors affecting care: Atrial fibrillation on Eliquis, digoxin, hypertension, GERD Social determinants of health: none History obtained from others: EMS, jail staff Consults: n jail midlevel practitioner Ms. Steel [facility] Narrative: Patient was initially hemodynamically stable, afebrile, nontoxic-appearing. Exam without focus of infection. Abdomen soft nontender. Was slightly distended but this may be secondary to body habitus. I considered the following differential diagnosis: Ileus, small bowel obstruction, acute surgical etiology abdomen, sepsis, endorgan hypoperfusion ALL IMAGES (IF OBTAINED) HAVE BEEN PERSONALLY REVIEWED AND INTERPRETED BY MYSELF. CBC with leukocytosis, mild baseline anemia, no thrombocytopenia BMP with mild hyponatremia, no significant electrode abnormalities, no JAJA, no anion gap to suggest endorgan hypoperfusion Lactate is wnl indicating no end-organ hypoperfusion and/or hypoxia. LFTs only mild elevation alk phos LFTs with baseline alkaline phosphatase elevation no other liver enzyme abnormalities noted Lipase is wnl indicating no pancreatic inflammation. CT scan of the abdomen pelvis shows evidence of colonic ileus No clear life-threatening etiology be ascertained in the belly. I did speak with the patient's jail provider Ms. Steel who states patient is current on oral antibiotics given positive blood cultures noted prior ED evaluation. Blood cultures were drawn again today. There is no signs of endorgan hypoperfusion. White blood cells obtaining from prior studies. I discussed this with the patient. She felt more comfortable staying in the hospital rather than going back to her nurse facility to receive ongoing antimicrobial therapy. I thought this was appropriate. Given positive blood cultures and leukocytosis (that is uptrending from prior) I did offer the patient admission to continue IV antibiotics and await culture results. The patient and/or family, caregivers express understanding. The patient and/or family, caregivers agrees with the plan. Shared decision making: I will have a discussion with the patient and or visitors regarding risk/benefits of further testing or admission. They will be made aware of of the risk/benefits inherent in this decision they will be given the opportunity to voice understanding. Total critical care time today provided was at least 0 minutes. This excludes separately billable procedures. Critical care time (if documented) is secondary to the patient having high probability of clinically significant/life threatening deterioration in the patient's condition which required my urgent intervention. Impression: 1. Colonic ileus 2. Leukocytosis 3. Anemia 4. Hyponatremia 5. E. coli bacteremia Dispo: Admit to medicine Lab Data Attestation: I reviewed the patient's lab results. Labs: Laboratory Results - last 24 hr 02/13/23 02/13/23 14:05 16:30 WBC 16.7 H RBC 4.06 L Hgb 10.2 L Hct 34.6 L MCV 85.2 MCH 25.1 L MCHC 29.5 L RDW Std Deviation 57.3 H RDW Coeff of Aris 18.3 H Plt Count 663 H MPV 9.5 Immature Gran % (Auto) 2.300 H Neut % (Auto) 83.3 H Lymph % (Auto) 10.1 L Bradford % (Auto) 4.0 Eos % (Auto) 0.0 Baso % (Auto) 0.3 Absolute Neuts (auto) 13.9 H Absolute Lymphs (auto) 1.69 Nucleated RBC % 0 Sodium 133 L Potassium 4.0 Chloride 102 Carbon Dioxide 27.0 Anion Gap 4 L BUN 9 Creatinine 0.53 L Estim Creat Clear Calc 40.81 Est GFR (MDRD) Af Amer 145 Est GFR (MDRD) Non-Af 120 BUN/Creatinine Ratio 16.9 Glucose 115 H Lactic Acid 1.3 Calcium 10.0 Total Bilirubin 0.40 AST 30 ALT 22 Alkaline Phosphatase 136 H Total Protein 7.3 Albumin 1.8 L Globulin 5.5 H Albumin/Globulin Ratio 0.3 L Lipase 19 Digoxin 1.14 Radiography Diagnostic Testing: Clinical Impression(s) from Imaging Studies Abdomen/Pelvis CT 02/13/23 13:52 IMPRESSION: Findings suggestive of a colonic ileus. Electronically Signed: Erick Galarza MD at 15:37 EDT , Discharge Plan Triage Chief Complaint: Abd Pain ED Provider: aTn Ortega Dx/Rx/DC Orders Prescriptions: No Action ipratropium-albuterol 0.5 mg-3 mg(2.5 mg base)/3 mL solution for nebulization 3 ml inhalation Q4H PRN loperamide [Imodium A-D] 2 mg capsule 2 mg PO Q6H PRN diltiazem HCl 180 mg capsule,extended release 24hr 180 mg PO DAILY magnesium oxide 400 mg (241.3 mg magnesium) tablet 400 mg PO DAILY oxybutynin chloride [Ditropan XL] 5 mg tablet extended release 24hr 5 mg PO DAILY gabapentin 300 mg capsule 300 mg PO TID digoxin 125 mcg (0.125 mg) tablet 125 mcg PO DAILY furosemide [Lasix] 20 mg tablet 20 mg PO DAILY ferrous sulfate 325 mg (65 mg iron) tablet,delayed release (DR/EC) 325 mg PO DAILY ondansetron 4 mg tablet,disintegrating 4 mg PO Q6H acetaminophen [Tylophen] 500 mg capsule 500 mg PO Q6H PRN atenolol 50 mg tablet 50 mg PO BID duloxetine 60 mg capsule,delayed release(DR/EC) 60 mg PO DAILY Eliquis 5 mg tablet 5 mg PO BID potassium chloride 20 mEq tablet extended release 40 meq PO TID Primary Care Provider: Patric Laughlin Referrals: Patric Laughlin MD [Primary Care Provider] -
[2023-02-13] MEDS: 0.9% Normal Saline (1000mL) 1,000 ML 999 ML IV (15:12)
[2023-02-13 15:29] VITALS: BP 108/49; PULSE 63; RESP 18; TEMP 36.7; O2SAT 94
[2023-02-13] MEDS: Vancomycin HCl 1,750 MG in 0.9% Normal Saline (500mL Bag) 500 ML 250 MG IV (16:13)
[2023-02-13 17:30] LABS: Digoxin Level 1.14 ng/mL (0.80-2.00)
--- NOTE | 2023-02-13 18:23 | PCM.HP.STD ---
HPI - General General Date of Admission: 02/13/23 Date of Service: 02/13/23 Chief Complaint: Abnormal KUB with ileus at SNF, recent E. Coli UTI/E. Coli bacteremia with unclear abx treatment HPI Narrative The patient is a 72 y/o F w/ PMHx: Former tobacco use, Morbid obesity, GERD, HTN, HLD, IGNACIO, Rhematoid arthritis, Anxiety and Depression, PAF, Chronic anemia/iron deficiency anemia who presents to the [facility] ED on 02/13/23 with history of concern per facility of ileus on plain film of the abdomen although patient is oriented and appropriate and notes that she denies abdominal distention or any pain but has been having notable diarrhea acute on chronic as she has had it for several months but recently with antibiotic therapy and it has been worse with plain films at the facility with reported reviewed as ileus prompting eventual ED transition. Also of note patient had been seen little over a week prior and was diagnosed with an E. coli UTI at that time with positive blood cultures as well discharged to snf on IV antibiotics but per discussion with skilled facility sounds as though there was difficulty with access and she was eventually transitioned to an oral cephalosporin which she completed. There was concerns though by the ED physician that she may have been undertreated as she was not continued on IV antibiotics of note. Work-up in the ED included T98.1, heart 63, BP 108/49, respiratory rate 18, 94% on room air, CBC with WBC 16.7, hemoglobin 10.2, MCV 85.2, platelets 62 3 with left shift, CMP with sodium 133, BUN/creatinine 9/0.53, glucose 115, alk phos 136 otherwise not marked appearing, lactic acid 1.3, lipase 19, digoxin level 1.14 which is within normal range, blood culture x2 pending per ED, CT abdomen and pelvis with findings of a colonic ileus. In the ED patient administered IV vancomycin as well as IV Zosyn and 1 L normal saline. [facility] Medical History (Updated 02/13/23 @ 21:[address] Emma Villalpando MD) A-fib Depression Diabetes GERD (gastroesophageal reflux disease) Gout HTN (hypertension) Overactive bladder Rheumatoid arthritis Sleep apnea Home Medications acetaminophen 500 mg capsule (Tylophen) 500 mg PO Q6H PRN 02/03/23 [History Last Taken Unknown] apixaban 5 mg tablet (Eliquis) 5 mg PO BID 02/03/23 [History Last Taken Unknown] atenolol 50 mg tablet 50 mg PO BID 02/03/23 [History Last Taken Unknown] digoxin 125 mcg (0.125 mg) tablet 125 mcg PO DAILY 02/03/23 [History Last Taken Unknown] diltiazem HCl 180 mg capsule,extended release 24 hr 180 mg PO DAILY 02/03/23 [History Last Taken Unknown] duloxetine 60 mg capsule,delayed release 60 mg PO DAILY 02/03/23 [History Last Taken Unknown] ferrous sulfate 325 mg (65 mg iron) tablet,delayed release 325 mg PO DAILY 02/03/23 [History Last Taken Unknown] furosemide 20 mg tablet (Lasix) 20 mg PO DAILY 02/03/23 [History Last Taken Unknown] gabapentin 300 mg capsule 300 mg PO TID 02/03/23 [History Last Taken Unknown] ipratropium 0.5 mg-albuterol 3 mg (2.5 mg base)/3 mL nebulization soln 3 ml inhalation Q4H PRN 02/03/23 [History Last Taken Unknown] loperamide 2 mg capsule (Imodium A-D) 2 mg PO Q6H PRN 02/03/23 [History Last Taken Unknown] magnesium oxide 400 mg (241.3 mg magnesium) tablet 400 mg PO DAILY 02/03/23 [History Last Taken Unknown] ondansetron 4 mg disintegrating tablet 4 mg PO Q6H 02/03/23 [History Last Taken Unknown] oxybutynin chloride 5 mg tablet,extended release 24 hr (Ditropan XL) 5 mg PO DAILY 02/03/23 [History Last Taken Unknown] potassium chloride 20 mEq tablet,extended release 40 meq PO TID 02/03/23 [History Last Taken Unknown] Allergy/AdvReac Type Severity Reaction Status Date / Time HEATHER Inhibitors Allergy Mild PT UNSURE Verified 02/13/23 17:35 OF REACTION ibuprofen Allergy Intermediate itchy Uncoded 02/13/23 17:35 Family History (Updated 02/13/23 @ 21:[address] Emma Villalpando MD) Mother Diabetes Father Prostate cancer Surgical History History of right knee joint replacement Hx of cholecystectomy Social History housing: snf Smoking Status: Former smoker alcohol intake: never substance use type: does not use ROS ROS Narrative Admission Review of Systems: CONSTITUTIONAL: No weight loss, fever, chills, + weakness or fatigue. HEENT: Eyes: No visual loss, blurred vision, double vision or yellow sclerae. Ears, Nose, Throat: No hearing loss, sneezing, congestion, runny nose or sore throat. SKIN: No rash or itching, lesions, wounds. CARDIOVASCULAR: + Chronic peripheral edema. No chest pain, chest pressure or chest discomfort, palpitations, orthopnea, syncopal events. RESPIRATORY: + Chronic dyspnea with any exertion or effort. No marked cough or sputum, wheezing, hemoptysis. GASTROINTESTINAL: + Persistent diarrhea, potentially acute on chronic. No anorexia, nausea, vomiting, abdominal pain, melena, BRBPR. GENITOURINARY: No dysuria, frequency, urgency or retention. NEUROLOGICAL: No headache, dizziness, syncope, paralysis, ataxia, numbness or tingling in the extremities, focal weakness, change in bowel or bladder control, seizure. MUSCULOSKELETAL: + muscle, back pain, joint pain or stiffness. HEMATOLOGIC: + anemia, easy bleeding or bruising. LYMPHATICS: No enlarged nodes. No history of splenectomy. PSYCHIATRIC: + history of depression or anxiety. ENDOCRINOLOGIC: No reports of sweating, cold or heat intolerance. No polyuria or polydipsia. ALLERGIES: No history of asthma, hives, eczema or rhinitis. Vital Signs Vital Signs Vital Signs: 02/13/23 12:25 02/13/23 14:24 02/13/23 15:29 Temperature 99 F 98.1 F 98.1 F Temperature Source Temporal Oral Oral Pulse Rate 63 60 63 Respiratory Rate 14 18 18 Blood Pressure 129/99 H 110/71 108/49 L Blood Pressure Mean 109 84 68 Pulse Ox 100 95 94 Oxygen Delivery Method Room Air Room Air Room Air Weight Weight: 257 lb Body Mass Index (BMI) 47.0 Physical Exam Narrative Physical Examination: General: Awake, alert, oriented x 3 and cooperative, laying in the ED bed, fatigued otherwise denies any acute complaints at this time. Skin: Normal color, normal turgor, no icterus, no cyanosis except occasional staged ecchymoses. HEENT: AT/NC, EOMI, PERRLA, MMM, no carotid bruits or JVD noted; however, thickened neck makes evaluation difficult. Lungs: Diminished, greater bases, distant breath sounds, no evidence of any distress, no rales, ronchi or wheezing. Heart: Regular rate and rhythm; no gallop, rub audible. Abdomen: Soft, NTTP, unable to discern distention or HSM given habitus but she denies any distention, mildly hyperactive diffuse bowel sounds, no marked tympanitic sounds with palpation. Extremities: No cyanosis, no clubbing, chronic peripheral swelling noted which she notes is stable. Neurological: Patient awake, alert, oriented as noted, cognitive function intact; pupils equally reactive to light and accommodation, cranial nerves II-XII grossly normal, moving all 4 extremities, no focal deficits, strength moderately to severely global decreased. Psychiatric: Affect appears fatigued otherwise normal, no acute evidence of depressive or anxiety feelings. Results Lab / Micro Data 02/13/23 14:05 02/13/23 14:05 Labs: Laboratory Results - last 24 hr 02/13/23 14:05: WBC 16.7 H, RBC 4.06 L, Hgb 10.2 L, Hct 34.6 L, MCV 85.2, MCH 25.1 L, MCHC 29.5 L, RDW Std Deviation 57.3 H, RDW Coeff of Aris 18.3 H, Plt Count 663 H, MPV 9.5, Immature Gran % (Auto) 2.300 H, Neut % (Auto) 83.3 H, Lymph % (Auto) 10.1 L, Dewey % (Auto) 4.0, Eos % (Auto) 0.0, Baso % (Auto) 0.3, Absolute Neuts (auto) 13.9 H, Absolute Lymphs (auto) 1.69, Nucleated RBC % 0, Sodium 133 L, Potassium 4.0, Chloride 102, Carbon Dioxide 27.0, Anion Gap 4 L, BUN 9, Creatinine 0.53 L, Estim Creat Clear Calc 40.81, Est GFR (MDRD) Af Amer 145, Est GFR (MDRD) Non-Af 120, BUN/Creatinine Ratio 16.9, Glucose 115 H, Lactic Acid 1.3, Calcium 10.0, Total Bilirubin 0.40, AST 30, ALT 22, Alkaline Phosphatase 136 H, Total Protein 7.3, Albumin 1.8 L, Globulin 5.5 H, Albumin/Globulin Ratio 0.3 L, Lipase 19 02/13/23 16:30: Digoxin 1.14 Radiology Impression Abdomen/Pelvis CT 02/13/23 13:52 IMPRESSION: Findings suggestive of a colonic ileus. Electronically Signed: Erick Galarza MD at 15:37 EDT , Assessment & Plan Assessment/Plan (1) Ileus: PLAN: Plan The patient is a 72 y/o F w/ PMHx: Former tobacco use, Morbid obesity, GERD, HTN, HLD, IGNACIO, Rhematoid arthritis, Anxiety and Depression, PAF, Chronic anemia/iron deficiency anemia who presents to the [facility] ED on 02/13/23 with history of concern per facility of ileus on plain film of the abdomen although patient is oriented and appropriate and notes that she denies abdominal distention or any pain but has been having notable diarrhea acute on chronic as she has had it for several months but recently with antibiotic therapy and it has been worse with plain films at the facility with reported reviewed as ileus prompting eventual ED transition. #1. Recent E. Coli UTI and E. Coli bacteremia: Given concerns for appropriate abx therapy with recent UTI and bacteremia, will admit to [facility], will obtain repeat UA/UCx, Bld Cx repeat x 2 already pending and given leukocytosis will maintain on IV rocephin given that the patient on her most recent urine culture and blood cultures was sensitive to this agent until these result, will continue IVFs, monitor I/Os, PT/OT/CM consultation for discharge planning. #2. ? Colon Ileus with persistent diarrhea: No abdominal pain, tolerating diet, no sensation per patient of distention, plain films at [facility] with ileus and CT as noted with ileus. She does have acute on chronic diarrhea which she reports ongoing for several months but worse recently and was on abx therapy with attempted IV but given access issues transitioned to oral. Will obtain c-diff, O+P and enteric. Will allow continued diet as tolerating. If cdiff/enteric negative will start loperamide. #3. Chronic normocytic anemia/iron deficiency anemia: Admission hemoglobin 10.2, MCV 85.2, baseline hemoglobin appears primarily 8-10, stable, continue to trend, continue chronic iron supplementation. #4. Hypertension: Continue home regimen including Lasix, diltiazem, atenolol, PRN hydralazine. #5. Hyperlipidemia: Not on regimen, defer to outpatient. #6. PAF: We will continue patient home chronic atenolol, digoxin, diltiazem and apixaban home regimen. #7. Anxiety and depression: We will continue patient home duloxetine regimen. #8. Morbid Obesity: Weight loss and lifestyle changes encouraged. #9. Rheumatoid arthritis: Noted in history, not on any chronic regimen of chronic steroids, encourage continued outpatient follow-up with rheumatology. #10. Former tobacco use: Encourage continued tobacco cessation. #11. IGNACOI: CPAP nightly. #12. DVT prophylaxis: We will continue patient home Eliquis regimen. #13. CODE status: Patient denies having healthcare power of commercial attorney or living will set up but notes her daughter Francine would be her decision-maker if she was unable. Discussed CODE status at length including difference between FULL code, DNR-CCA and DNR-CC status. Following discussions about the differences in these status, requested DNR-CCA, no intubation status. Advanced Care Planning Face to Face Time: 16 minutes. Charges/Coding Visit Charges Inpatient E&M: 09952 Init Hosp L3 Procedures Hospitalists Procedures: 72783 Advncd Care Plan 30 Min
--- NOTE | 2023-02-13 18:25 | NURSING ---
MED SURG OBS WHITE ECOLI BACTEREMIA
[2023-02-13 18:42] VITALS: BP 113/59; PULSE 55; RESP 18; TEMP 36.4; O2SAT 99
[2023-02-13 20:36] VITALS: BMI 45.8
[2023-02-13 20:53] VITALS: BP 112/62; PULSE 55; RESP 18; TEMP 36.6; O2SAT 100
[2023-02-13] MEDS: Contrast Allergy Safety Check IV (21:33)
[2023-02-13] MEDS: 0.9% Normal Saline (1000mL) 1,000 ML 100 ML IV (21:34)
[2023-02-13 23:04] VITALS: BP 111/56; PULSE 56; RESP 18; TEMP 36.6; O2SAT 100
[2023-02-13] MEDS: Menthol/Lanolin/Calamine/Znox 113 GM Tube 1 APPLIC TOPICAL (23:05)
[2023-02-13] MEDS: Acetaminophen 325 MG Tablet 650 MG PO (23:06)
[2023-02-13] MEDS: MELATONIN 3 MG TABLET PO (23:06)
--- NOTE | 2023-02-13 23:41 | CPS ---
Pt refused PAP therapy, stated she does not wear one at home. Pt on RA.
[2023-02-14] VITALS (7 sets, daily range): BP systolic 101–120; BP diastolic 51–68; PULSE 53–70; RESP 18; TEMP 36.4–36.9; O2SAT 97–100
[2023-02-14 04:00] LABS: Mucous, Urine 0 SEEN /hpf (<or=2+); Red Blood Cells-Urine 0 SEEN /hpf (0-5); Squamous Epithelial Cells - UA 0 SEEN /hpf (5-10)
[2023-02-14 04:02] LABS: Color, Urine Yellow (Yellow); Glucose, Dipstick Normal (Normal); Ketone-Dipstick Negative (Negative); Leukocyte Esterase-Dipstick Negative /ul (Negative); Nitrite-Dipstick Negative (Negative); Occult Blood-Urine Negative /ul (Negative); Protein-Dipstick Negative (Negative); Urine Bilirubin Dipstick Negative (Negative); Urine Clarity Clear (Clear); Urine Urobilinogen Normal (Normal)
[2023-02-14 04:13] LABS: Bacteria RARE /hpf (None Seen); White Blood Cells 0-5 SEEN /hpf (0-5)
[2023-02-14] MEDS: Gabapentin 300 MG Capsule PO ×3 (06:26→23:40)
[2023-02-14 06:29] LABS: Absolute Neutrophil Count 11.1 X10^3/uL (2.0-7.7); Basophil# 0.05 X10^3/uL; Basophil% 0.4 % (0-1); Hematocrit 30.3 % (37-47); Hemoglobin 8.6 g/dL (12.0-15.0); Lymphocyte % 10.4 % (19-41); Mean Corp Hgb Conc 28.4 g/dL (32-36); Mean Corpuscular Hgb 24.8 pg (27.0-32.0); Mean Corpuscular Volume 87.3 fL (81-99); Mean Platelet Vol. 9.7 fl (6.2-12.0); Monocyte# 0.57 X10^3/uL; Monocyte% 4.2 % (0-10); NRBC Flagged by Analyzer 0 % (0-5); Neutrophil # 11.08 X10^3/uL (2.7-7.7); Neutrophil % 82.6 % (47-70); Platelet Count 540 K/mm3 (150-450); RBC Distribution Width CV 18.3 % (11.6-14.6); RBC Distribution Width SD 58.7 fl (35.1-43.9); Red Blood Count 3.47 M/mm3 (4.2-5.4); White Blood Count 13.4 K/mm3 (4.4-11.0)
[2023-02-14 06:58] LABS: ALB/GLOB Ratio 0.4 RATIO (0.9-2.4); AST(SGOT) 22 U/L (15-37); Alanine Aminotransfer ALT/SGPT 18 U/L (13-56); Albumin, Serum 1.7 g/dL (3.2-5.0); Alkaline Phosphatase 113 U/L (45-117); Anion Gap 6 (5-15); BUN 9 mg/dL (7-18); BUN/Creat Ratio 18.5 RATIO (10-20); Calcium,Total 8.9 mg/dL (8.5-10.1); Chloride 108 mmol/L (98-107); Creatinine, Serum 0.49 mg/dL (0.55-1.02); EST Glomerular Filtration Rate 133 mL/min (>60); Est Glom Filt Rate - Afr Amer 161 mL/min (>60); Estimated Creatinine Clearance 40.81 ml/min; Globulin 4.7 g/dL (2.2-4.2); Glucose 89 mg/dL (74-106); Potassium 3.2 mmol/L (3.5-5.1); Protein, Total 6.4 g/dL (6.4-8.2); Sodium Level 138 mmol/L (136-145)
[2023-02-14] MEDS: Ipratropium/Albuterol Sulfate 3 ML AMPUL.NEB INHALATION (07:10)
--- NOTE | 2023-02-14 08:35 | PCM.PN.HOSP ---
Reason for Visit Reason for Visit: Diagnoses Ileus, unspecified (02/13/23) Subjective Subjective Patient is a 72-year-old lady admitted with abdominal distention. CT of the abdomen and pelvis obtained on admission demonstrated findings consistent with colonic ileus. Admitted to regular nursing floor for further management Objective Data Objective Data Vital Signs: Vital Signs Temp Pulse Resp BP Pulse Ox O2 Del Method 98.5 F 70 18 101/51 L 97 Room Air 02/14/23 05:33 02/14/23 07:11 02/14/23 07:11 02/14/23 02:07 02/14/23 02:07 02/14/23 07:11 Oxygen Delivery Method Room Air Weight: 113.761 kg Body Mass Index (BMI) 45.8 Intake & Output: Intake and Output for Last 24 Hours 02/12/23 02/13/23 02/14/23 23:59 23:59 23:59 Intake Total 1685 / 1685 1086.67 / 1086.67 Output Total 200 / 200 Balance 1685 / 1685 886.67 / 886.67 Lab / Micro Data 02/14/23 06:10 02/14/23 06:10 Labs: Laboratory Results - last 24 hr 02/13/23 03:45: Urine Color Yellow, Urine Clarity Clear, Urine pH 6.0, Ur Specific [place] 1.010, Urine Protein Negative, Urine Glucose (UA) Normal, Urine Ketones Negative, Urine Occult Blood Negative, Urine Nitrite Negative, Urine Bilirubin Negative, Urine Urobilinogen Normal, Ur Leukocyte Esterase Negative, Urine RBC 0 SEEN, Urine WBC 0-5 SEEN, Ur Squamous Epith Cells 0 SEEN, Urine Bacteria RARE, Urine Mucus 0 SEEN 02/13/23 14:05: WBC 16.7 H, RBC 4.06 L, Hgb 10.2 L, Hct 34.6 L, MCV 85.2, MCH 25.1 L, MCHC 29.5 L, RDW Std Deviation 57.3 H, RDW Coeff of Aris 18.3 H, Plt Count 663 H, MPV 9.5, Immature Gran % (Auto) 2.300 H, Neut % (Auto) 83.3 H, Lymph % (Auto) 10.1 L, Mcdonough % (Auto) 4.0, Eos % (Auto) 0.0, Baso % (Auto) 0.3, Absolute Neuts (auto) 13.9 H, Absolute Lymphs (auto) 1.69, Nucleated RBC % 0, Sodium 133 L, Potassium 4.0, Chloride 102, Carbon Dioxide 27.0, Anion Gap 4 L, BUN 9, Creatinine 0.53 L, Estim Creat Clear Calc 40.81, Est GFR (MDRD) Af Amer 145, Est GFR (MDRD) Non-Af 120, BUN/Creatinine Ratio 16.9, Glucose 115 H, Lactic Acid 1.3, Calcium 10.0, Total Bilirubin 0.40, AST 30, ALT 22, Alkaline Phosphatase 136 H, Total Protein 7.3, Albumin 1.8 L, Globulin 5.5 H, Albumin/Globulin Ratio 0.3 L, Lipase 19 02/13/23 16:30: Procalcitonin 0.30 H, Digoxin 1.14 02/14/23 06:10: WBC 13.4 H, RBC 3.47 L, Hgb 8.6 L, Hct 30.3 L, MCV 87.3, MCH 24.8 L, MCHC 28.4 L, RDW Std Deviation 58.7 H, RDW Coeff of Aris 18.3 H, Plt Count 540 H, MPV 9.7, Immature Gran % (Auto) 2.400 H, Neut % (Auto) 82.6 H, Lymph % (Auto) 10.4 L, Mcdonough % (Auto) 4.2, Eos % (Auto) 0.0, Baso % (Auto) 0.4, Absolute Neuts (auto) 11.1 H, Absolute Lymphs (auto) 1.40, Nucleated RBC % 0, Sodium 138, Potassium 3.2 L, Chloride 108 H, Carbon Dioxide 24.0, Anion Gap 6, BUN 9, Creatinine 0.49 L, Estim Creat Clear Calc 40.81, Est GFR (MDRD) Af Amer 161, Est GFR (MDRD) Non-Af 133, BUN/Creatinine Ratio 18.5, Glucose 89, Calcium 8.9, Total Bilirubin 0.30, AST 22, ALT 18, Alkaline Phosphatase 113, Total Protein 6.4, Albumin 1.7 L, Globulin 4.7 H, Albumin/Globulin Ratio 0.4 L Radiography Diagnostic Testing: Radiology Impression Abdomen/Pelvis CT 02/13/23 13:52 IMPRESSION: Findings suggestive of a colonic ileus. Electronically Signed: Erick Galarza MD at 15:37 EDT , Physical Exam Narrative GENERAL: cooperative HEENT: Atraumatic; normocephalic EYES; Anicteric, Normal Conjunctiva NECK; supple, normal thyroid, RESPIRATORY: Diminished to auscultation CARDIOVASCULAR: Regular S1 S2, GI: soft, normoactive bowel sounds, : No Renal angle tenderness; EXTREMITIES: No edema, no clubbing, MUSCULOSKELETAL: no muscle wasting NEURO: Awake; no lateralizing signs. SKIN: No Rash PSYCH; Flat affect Assessment & Plan Assessment/Plan (1) Ileus: PLAN: Plan Patient is a 72-year-old lady admitted with abdominal distention. CT of the abdomen and pelvis obtained on admission demonstrated findings consistent with colonic ileus. Admitted to regular nursing floor for further management 1. Colonic ileus ? Suspected to be secondary to chronic use of loperamide given patient chronic diarrhea. Suspected offending medications discontinued admitted to regular nursing floor managed symptomatically. Plan is for patient to be referred to be evaluated by GI as outpatient 2. Recent E. coli bacteremia ? Sensitivities reviewed patient on appropriate antibiotic therapy 3. Anemia - Secondary to chronic disorder monitoring H&H and transfuse if patient becomes symptomatic or hemoglobin falls below 7 4. Hypertension - Blood pressure controlled, home medications continued with dose adjustment as needed 5. Class III obesity with BMI of 45.9 ? Complicating care weight loss advised 6. Paroxysmal atrial fibrillation ? Patient is on digoxin and systemic anticoagulation with apixaban 7. Depression with anxiety ? Patient is on duloxetine 8. Rheumatoid arthritis ? By history currently not on any long-term treatment 9. Obstructive sleep apnea CPAP at night 10. DVT prophylaxis ? Patient is on apixaban Time spent in the patient's overall evaluation,decision-making process, review of diagnostic data, adjustment of management, discussion with other providers, nursing nursing and ancillary staff involved in patient's care documentation, 50 Minutes Charges/Coding Visit Charges Inpatient E&M: [address] [place] [id number]
[2023-02-14] MEDS: Furosemide 20 MG Tablet PO (09:35)
[2023-02-14] MEDS: Magnesium Chloride 64 MG Delay Rel.Tablet 128 MG PO (09:35)
[2023-02-14] MEDS: APIXABAN 5 MG TABLET PO ×2 (09:35→23:40)
[2023-02-14] MEDS: DULoxetine Hcl 60 MG Capsule PO (09:35)
[2023-02-14] MEDS: Ceftriaxone 1 GM/50 ML BAG IV (09:43)
[2023-02-14] MEDS: Ferrous Sulfate 325 MG Tablet PO (09:50)
[2023-02-14] MEDS: 0.9% Normal Saline (250mL Bag) 250 ML 15 ML IV (10:15)
--- NOTE | 2023-02-14 11:13 | NURSING ---
pt informed daughter called in earlier and said nurse will call her back when time allows. pt staets oh, i just talked with her. there is no need for you to call her back.
[2023-02-14] MEDS: Menthol/Lanolin/Calamine/Znox 113 GM Tube 1 APPLIC TOPICAL ×3 (11:15→23:40)
[2023-02-14] MEDS: Potassium Chloride 10mEq/100mL 10 MEQ/100 ML IV.SOLN. 100 MEQ IV BOLUS ×4 (11:15→14:34)
--- NOTE | 2023-02-14 11:16 | CASEMGMT ---
Discharge Planning Updates sent to [facility] via [employer]. Asked if patient was terminal carman, has ANTONIETA, and current bedhold. Awaiting response. Makayla Rice, Discharge Planning Asst.
--- NOTE | 2023-02-14 11:34 | CASEMGMT ---
Social Work SW spoke to pt regarding advance directives. Pt was uncertain but states her daughter Kristen is in charge. Phone call to Kristen who states pt does not have a living will or health care POA. Pt is confused at this time and not able to complete documents. KATHYA Laird
--- NOTE | 2023-02-14 11:35 | CASEMGMT ---
Social Work OMNICA met with pt and introduced self and role of SW. Pt laying in bed and willing to talk to SW. Pt states she lives in a intermediate and that the name of facilty is [employer] [facility] in [place]. MONICA inquired about [facility] as this is facility listed. Pt denies and also states she has been there for about a year. Pt states she went to the facility to help her brother and they made her stay. MONICA inquired about contacts and pt states bradleyt Kristen Fallon knows everything about her care and pt provided number ([phone]). Phone call to fito Escamilla who is listed on demographics. This number is not working. Phone call to Kristen. She states that pt was admitted to [facility] at the beginning of December and has been more and more confused over the last few weeks. Telling stories and events that are not in reality. Pt is at the facility under her Medicaid and Kristen plans for pt to return to [facility] at discharge. Kristen states that sister Francine's phone works some of the time and not others and Kristen confirms she is the primary contact. MONICA updated demographic sheet. Updates sent to [facility] who confirm pt is there under a bed hold and can return. Plan: [facility], when medically ready KATHYA Laird
--- NOTE | 2023-02-14 12:06 | CASEMGMT ---
Discharge Planning Patient is usp ANTONIETA at [facility]. She can return under her ANTONIETA benefits but they would like to skill if necessary. SW updated. Makayla Rice, Discharge Planning Asst.
[2023-02-14] MEDS: Acetaminophen 325 MG Tablet 650 MG PO (12:22)
--- NOTE | 2023-02-14 14:30 | CHAPLAIN ---
Type of Pastoral Visit _x__ Initial Visit ___ Follow-up Visit ___ On-call Visit ___ General Patient Visit ___ Spiritual Assessment ___ Family Conference ___ Bereavement ___ Rapid Response ___ Code Blue ___ Other (describe below) Pastoral Care Referral From _x__ Patient ___ Family ___ Nurse ___ Physician ___ Light Out Examiner ___ Regulatory Affairs Intern ___ Other (describe below) Sacrament/Intervention _x__ Active listening ___ Anointing ___ Restorationist ___ Bereavement ___ Communion ___ Yumiko exploration ___ _x__ Life review _x__ Prayer ___ Reconciliation ___ Sacrament of Sick _x__ Supportive presence ___ Wedding ___ Other (describe below) Pastoral Comments patient is welcoming and describes more recent and different health in last year or so; pt has family around for support; pt is expressive of support from medical team; pt would like prayer for her health; presence given
--- NOTE | 2023-02-14 16:10 | RAD_ITS ---
STUDY: X-RAY - ABDOMEN/PELVIS REASON FOR EXAM: Female, 72 years old. Colonic ileus TECHNIQUE: AP supine and upright views of the abdomen and pelvis. COMPARISON: 02/13/2023 CT abdomen pelvis FINDINGS: Normal visualized lung bases. Diffusely dilated large bowel is present with overall similar appearance compared to most recent CT examination demonstrating diffuse colonic ileus. There is no demonstrated free abdominal air. The visualized liver, spleen and kidneys are grossly normal in size and morphology. Normal soft tissue structures. 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 RAD/Abd Inc Decub and/or Erect IMPRESSION: Extensive large bowel dilatation and gas filled and similar compared to most recent CT examination demonstrating diffuse colonic ileus. In the setting of very ill patient consider toxic megacolon. Electronically Signed: Aubrey Luther DO at 17:14 EDT ,
--- NOTE | 2023-02-14 16:53 | CASEMGMT ---
Met with patient to complete ADAMS form. ADAMS form explained to patient who voiced understanding and signed form. Original form placed in pt?s chart and copy provided to?patient. Makayla Rice, Discharge Planning Asst.
[2023-02-14] MEDS: Atenolol 50 MG Tablet PO (23:40)
[2023-02-14] MEDS: 0.9% Saline Lock 10 ML Syringe IV (23:42)
[2023-02-15 03:32] VITALS: BP 105/62; PULSE 61; RESP 20; TEMP 36.6; O2SAT 96
[2023-02-15] MEDS: Miconazole Nitrate 43 GM Bottle 1 APPLIC TOPICAL (03:39)
[2023-02-15 06:00] VITALS: BMI 46.7
[2023-02-15] MEDS: Gabapentin 300 MG Capsule PO ×3 (06:10→23:38)
[2023-02-15 07:09] LABS: Absolute Lymphocyte Count 1.37 X10^3/uL (0.83-4.51); Absolute Neutrophil Count 8.1 X10^3/uL (2.0-7.7); Basophil# 0.03 X10^3/uL; Basophil% 0.3 % (0-1); Hematocrit 31.2 % (37-47); Hemoglobin 9.1 g/dL (12.0-15.0); Lymphocyte # 1.37 X10^3/ul (0.83-4.51); Lymphocyte % 13.6 % (19-41); Mean Corp Hgb Conc 29.2 g/dL (32-36); Mean Corpuscular Hgb 25.3 pg (27.0-32.0); Mean Corpuscular Volume 86.7 fL (81-99); Mean Platelet Vol. 9.6 fl (6.2-12.0); Monocyte# 0.39 X10^3/uL; Monocyte% 3.9 % (0-10); NRBC Flagged by Analyzer 0 % (0-5); Neutrophil # 8.06 X10^3/uL (2.7-7.7); Neutrophil % 80.2 % (47-70); Platelet Count 550 K/mm3 (150-450); RBC Distribution Width CV 18.3 % (11.6-14.6); RBC Distribution Width SD 58.4 fl (35.1-43.9); White Blood Count 10.1 K/mm3 (4.4-11.0)
[2023-02-15 07:50] LABS: Anion Gap 4 (5-15); BUN 7 mg/dL (7-18); BUN/Creat Ratio 16.6 RATIO (10-20); Calcium,Total 8.9 mg/dL (8.5-10.1); Chloride 110 mmol/L (98-107); Creatinine, Serum 0.42 mg/dL (0.55-1.02); EST Glomerular Filtration Rate 157 mL/min (>60); Est Glom Filt Rate - Afr Amer 190 mL/min (>60); Estimated Creatinine Clearance 40.81 ml/min; Glucose 85 mg/dL (74-106); Magnesium 1.6 mg/dL (1.6-2.6); Potassium 3.3 mmol/L (3.5-5.1); Sodium Level 139 mmol/L (136-145)
--- NOTE | 2023-02-15 08:25 | PN.HOSP_ITS ---
Reason for Visit Reason for Visit: Diagnoses Ileus, unspecified (02/13/23) Subjective Subjective Patient is a 72-year-old lady admitted with abdominal distention and assessment of acute colonic ileus made on admission. Admitted to regular nursing floor symptomatic management initiated. Repeat imaging studies obtained on 02/14/2023 did showExtensive large bowel dilatation and gas filled and similar compared to most recent CT examination demonstrating diffuse colonic ileus. In the setting of very ill patient consider toxic megacolon.. Patient seen this a.m. has significant reduction in her abdominal distention. Consult placed to general s urgery. Objective Data Objective Data Vital Signs: Vital Signs Temp Pulse Resp BP Pulse Ox O2 Del Method 97.8 F 61 20 H 105/62 96 Room Air 02/15/23 03:32 02/15/23 03:32 02/15/23 03:32 02/15/23 03:32 02/15/23 03:32 02/15/23 03:32 Oxygen Delivery Method Room Air Weight: 115.4 kg Body Mass Index (BMI) 46.7 Intake & Output: Intake and Output for Last 24 Hours 02/13/23 02/14/23 02/15/23 23:59 23:59 23:59 Intake Total 1685 / 1685 1792.42 / 1792.42 Output Total 400 / 400 Balance 1685 / 1685 1392.42 / 1392.42 Lab / Micro Data 02/15/23 06:52 02/15/23 06:52 Labs: Laboratory Results - last 24 hr 02/15/23 06:52: WBC 10.1, RBC 3.60 L, Hgb 9.1 L, Hct 31.2 L, MCV 86.7, MCH 25.3 L, MCHC 29.2 L, RDW Std Deviation 58.4 H, RDW Coeff of Aris 18.3 H, Plt Count 550 H, MPV 9.6, Immature Gran % (Auto) 2.000 H, Neut % (Auto) 80.2 H, Lymph % (Auto) 13.6 L, Cole % (Auto) 3.9, Eos % (Auto) 0.0, Baso % (Auto) 0.3, Absolute Neuts (auto) 8.1 H, Absolute Lymphs (auto) 1.37, Nucleated RBC % 0, Sodium 139, Potassium 3.3 L, Chloride 110 H, Carbon Dioxide 25.0, Anion Gap 4 L, BUN 7, Creatinine 0.42 L, Estim Creat Clear Calc 40.81, Est GFR (MDRD) Af Amer 190, Est GFR (MDRD) Non-Af 157, BUN/Creatinine Ratio 16.6, Glucose 85, Calcium 8.9, Phosphorus 3.0, Magnesium 1.6 Micro: Microbiology 02/14/23 20:57 Stool C. difficile DNA Amplification - Final Radiography Diagnostic Testing: Radiology Impression Abdomen X-Ray 02/14/23 16:10 IMPRESSION: Extensive large bowel dilatation and gas filled and similar compared to most recent CT examination demonstrating diffuse colonic ileus. In the setting of very ill patient consider toxic megacolon. Electronically Signed: Aubrey Luther DO at 17:14 EDT Reading Location ID and State: [facility] / [place] , Service support , Physical Exam Narrative GENERAL: cooperative HEENT: Atraumatic; normocephalic EYES; Anicteric, Normal Conjunctiva NECK; supple, normal thyroid, RESPIRATORY: Diminished to auscultation CARDIOVASCULAR: Regular S1 S2, GI: soft, normoactive bowel sounds, : No Renal angle tenderness; EXTREMITIES: No edema, no clubbing, MUSCULOSKELETAL: no muscle wasting NEURO: Awake; no lateralizing signs. SKIN: No Rash PSYCH; Flat affect Assessment & Plan Assessment/Plan (1) Ileus: PLAN: Plan Patient is a 72-year-old lady admitted with abdominal distention. CT of the abdomen and pelvis obtained on admission demonstrated findings consistent with colonic ileus. Admitted to regular nursing floor for further management 1. Colonic ileus ? Suspected to be secondary to chronic use of loperamide given patient chronic diarrhea. Suspected offending medications discontinued admitted to regular nursing floor managed symptomatically. Plan is for patient to be referred to be evaluated by GI as outpatient ? 02/15/2023;Repeat imaging studies obtained on 02/14/2023 did showExtensive large bowel dilatation and gas filled and similar compared to most recent CT examin ation demonstrating diffuse colonic ileus. In the setting of very ill patient consider toxic megacolon.. Patient seen this a.m. has significant reduction in her abdominal distention. Consult placed to general surgery. 2. Recent E. coli bacteremia ? Sensitivities reviewed patient on appropriate antibiotic therapy 3. Anemia - Secondary to chronic disorder monitoring H&H and transfuse if patient becomes symptomatic or hemoglobin falls below 7 4. Hypertension - Blood pressure controlled, home medications continued with dose adjustment as needed 5. Class III obesity with BMI of 45.9 ? Complicating care weight loss advised 6. Paroxysmal atrial fibrillation ? Patient is on digoxin and systemic anticoagulation with apixaban 7. Depression with anxiety ? Patient is on duloxetine 8. Rheumatoid arthritis ? By history currently not on any long-term treatment 9. Obstructive sleep apnea CPAP at night 10. DVT prophylaxis ? Patient is on apixaban Time spent in the patient's overall evaluation,decision-making process, review of diagnostic data, adjustment of management, discussion with other providers, nursing nursing and ancillary staff involved in patient's care documentation, 50 Minutes Charges/Coding Visit Charges Inpatient E&M: 14416 [facility] L3
[2023-02-15 09:32] VITALS: BP 128/70; PULSE 59; RESP 18; TEMP 37; O2SAT 96
--- NOTE | 2023-02-15 11:06 | CT_ITS ---
INDICATION: rule out distal colonic obstruction -- TX contrast EXAMINATION: CT ABDOMEN AND PELVIS WITHOUT CONTRAST - CT Abdomen And Pelvis W/O Contrast Injection TECHNIQUE: Helically acquired images were obtained of the abdomen and pelvis without oral or IV contrast. Rectal contrast was administered. A radiation dose optimization technique was used for this scan. IV Contrast dosage and agent: None. Oral contrast: None. RADIATION DOSAGE (If Supplied By Facility): CTDIvol = ( 23.69 ) mGy, DLP = ( 1284.18 ) mGycm COMPARISON: February 13, 2023 FINDINGS: LOWER CHEST: Lung bases are clear. No cardiomegaly or pericardial effusion. The lack of intravenous contrast limits evaluation of solid visceral organs. LIVER: Homogeneous. No focal mass. GALLBLADDER AND BILIARY TREE: There are surgical clips within the gallbladder fossa consistent with prior cholecystectomy. No intra- or extrahepatic biliary ductal dilation. PANCREAS: No focal cystic or solid mass. SPLEEN: Normal size without focal cystic or solid mass. ADRENAL GLANDS: No nodules. KIDNEYS AND URETERS: Normal renal size and position. No hydronephrosis. PERITONEUM: No ascites or free air. No other fluid collection. BOWEL: No evidence of acute appendicitis. There is dilatation of the ascending, transverse and descending colon. Contrast is visualized throughout the colon. Within the transverse colon there is a questionable 2.5 x 1.0 x 0.9 cm filling defect (image 106 series 602 and image 129 series 2). LYMPH NODES: No enlarged mesenteric or retroperitoneal lymph nodes. VESSELS: Aorta is non-dilated. There are peripheral calcifications of the abdominal aorta consistent with atherosclerosis. URINARY BLADDER: Unremarkable. REPRODUCTIVE ORGANS: No pelvic masses. ABDOMINAL WALL: No discrete abdominal or pelvic wall hernia. BONES: There are degenerative changes of the lumbar spine. The right hip remains dysplastic associated with severe degenerative changes in superior and lateral subluxation of the femoral head. CT/Abdomen/Pelvis without Cont IMPRESSION: Findings suggestive of a colonic ileus or a partial colonic obstruction. Indeterminant soft tissue filling defect within the sigmoid colon, may be secondary to volume averaging however cannot exclude an underlying neoplastic process, recommend direct visualization. Atherosclerosis. Electronically Signed: Viviane Toure MD at 14:53 EDT ,
[2023-02-15] MEDS: Magnesium Chloride 64 MG Delay Rel.Tablet 128 MG PO (11:35)
[2023-02-15] MEDS: DULoxetine Hcl 60 MG Capsule PO (11:35)
[2023-02-15] MEDS: dilTIAZem CD 180 MG Capsule PO (11:35)
[2023-02-15] MEDS: Furosemide 20 MG Tablet PO (11:35)
[2023-02-15 11:36] VITALS: PULSE 56
[2023-02-15] MEDS: Digoxin 125 MCG Tablet PO (11:36)
[2023-02-15] MEDS: 0.9% Normal Saline (1000mL) 1,000 ML 125 ML IV ×2 (11:36→19:32)
[2023-02-15] MEDS: Atenolol 50 MG Tablet PO ×2 (11:36→23:41)
[2023-02-15] MEDS: Menthol/Lanolin/Calamine/Znox 113 GM Tube 1 APPLIC TOPICAL ×4 (11:37→19:32)
[2023-02-15] MEDS: Potassium Chloride 10mEq/100mL 10 MEQ/100 ML IV.SOLN. 100 MEQ IV BOLUS ×4 (11:37→17:27)
[2023-02-15] MEDS: Ceftriaxone 1 GM/50 ML BAG IV (14:08)
[2023-02-15 16:14] VITALS: BP 127/51; PULSE 50; RESP 18; TEMP 36.9; O2SAT 96
--- NOTE | 2023-02-15 17:23 | EX.PCM.CON.S ---
Assessment & Plan Assessment/Plan (1) Ileus: PLAN: Patient is a 72-year-old female who is admitted for possible colonic ileus after a prolonged period of abdominal distention and diarrhea. There are also intermittent reports of possible melena. Given patient's diffuse colonic distention her differential includes possible colonic pseudoobstruction versus distal mechanical obstruction secondary to mass lesion or benign stricture. To further investigate these possibilities I had patient undergo a per rectal contrast CT of the abdomen pelvis earlier today. This imaging suggests a possible partial obstruction with a filling defect of the sigmoid colon. Direct evaluation was recommended by radiology. I do believe a further evaluation is indicated with colonoscopy. It is my hope that the area in question could be closer examined and biopsied as well as hopefully obtain decompression of the proximal colon. In anticipation of this procedure I would like to continue holding patient's Eliquis and have placed her on a clear liquid diet. Tomorrow I will begin a bowel prep and enemas with an anticipated scope on 02/17/2023. Plan has been discussed with patient at bedside and she is in agreement. HPI Consult Data Date of Consult: 02/15/23 HPI Narrative Reason for Consultation: Rule out toxic megacolon and patient with colonic distention HPI Narrative: JENNI BOOTHE, is a 72 F who presented to [facility] with complaints of significant abdominal distention and diarrhea. Her ER work-up was notable for a leukocytosis of 16,[address] imaging of the abdomen pelvis seem to suggest a colonic ileus was present. However, when the hospitalist service repeated patient's imaging with a number of plain films of the abdomen radiology noted persistent colonic distention and suggested that toxic megacolon should be ruled out for a patient in significant distress. It is for this latter concern that surgery has been consulted. Work-up to date has also included C. difficile assay and enteric pathogen panel. Both of these have resulted as negative across the board. For her part, Mrs. Boothe reports a history of some 6 to 7 months of diarrhea and bloating. She also reports that she fairly routinely experiences 2 bowel movements per day. She denies any particular malodorous character to them. She states that one-point she was told they were darker in color. She also relates that her nursing aides had told her her stomach was hard but she insist that it was not bothering her. She denies any recent intake of narcotics. She communicates today that her stomach is much softer than it had been at that time. Patient's only prior surgical history was a cholecystectomy performed laparoscopically. She notes 2 prior colonoscopies?the last completed 4 to 5 years ago was remarkable for polyps but she is unable to detail any recommendations for follow-up scopes. She denies any personal history of diverticulitis. She is somewhat vague about her family history but reports that her father had stomach issues. Patient has a past medical history inclusive of rheumatoid arthritis, GERD, hypertension, obstructive sleep apnea, diabetes mellitus, anemia, and paroxysmal atrial fibrillation?for which she is on Eliquis. [facility] Medical History (Updated 02/13/23 @ 21:[address] Emma Villalpando MD) A-fib Depression Diabetes GERD (gastroesophageal reflux disease) Gout HTN (hypertension) Overactive bladder Rheumatoid arthritis Sleep apnea Home Medications acetaminophen 500 mg capsule (Tylophen) 500 mg PO Q6H PRN fever or pain 02/03/23 [History Last Taken 02/12/23] apixaban 5 mg tablet (Eliquis) 5 mg PO BID 02/03/23 [History Last Taken 02/13/23] atenolol 50 mg tablet 50 mg PO BID 02/03/23 [History Last Taken 02/13/23] digoxin 125 mcg (0.125 mg) tablet 125 mcg PO DAILY 02/03/23 [History Last Taken 02/13/23] diltiazem HCl 180 mg capsule,extended release 24 hr 180 mg PO DAILY 02/03/23 [History Last Taken 02/12/23] duloxetine 60 mg capsule,delayed release 60 mg PO DAILY 02/03/23 [History Last Taken 02/13/23] ferrous sulfate 325 mg (65 mg iron) tablet,delayed release 325 mg PO DAILY 02/03/23 [History Last Taken 02/12/23] furosemide 20 mg tablet (Lasix) 20 mg PO DAILY 02/03/23 [History Last Taken 02/13/23] gabapentin 300 mg capsule 300 mg PO Q8 02/03/23 [History Last Taken 02/13/23] ipratropium 0.5 mg-albuterol 3 mg (2.5 mg base)/3 mL nebulization soln 3 ml inhalation Q4H PRN shortness of breath 02/03/23 [History Last Taken Unknown] loperamide 2 mg capsule (Imodium A-D) 2 mg PO Q6H PRN loose stool 02/03/23 [History Last Taken Unknown] magnesium oxide 400 mg (241.3 mg magnesium) tablet 400 mg PO DAILY 02/03/23 [History Last Taken 02/13/23] ondansetron 4 mg disintegrating tablet 4 mg PO Q6H PRN nausea and vomiting 02/03/23 [History Last Taken Unknown] oxybutynin chloride 5 mg tablet,extended release 24 hr (Ditropan XL) 5 mg PO DAILY 02/03/23 [History Last Taken 02/13/23] potassium chloride 20 mEq tablet,extended release 40 meq PO TID 02/03/23 [History Last Taken 02/13/23] Allergy/AdvReac Type Severity Reaction Status Date / Time HEATHER Inhibitors Allergy Mild PT UNSURE Verified 02/13/23 17:35 OF REACTION ibuprofen Allergy Itching Verified 02/15/23 09:11 Family History (Updated 02/13/23 @ 21:[address] Emma Villalpando MD) Mother Diabetes Father Prostate cancer Surgical History History of right knee joint replacement Hx of cholecystectomy Social History housing: senior living Smoking Status: Former smoker alcohol intake: never substance use type: does not use Physical Exam Const alert, oriented x3 and no apparent distress Nutritional Appearance: obese morbidly obese GI GI Narrative: Morbidly obese, well-healed port site incisions, mildly distended, I am unable to elicit tympany with percussion, nontender to palpation x4 quadrants Lab / Micro Data 02/15/23 06:52 02/15/23 06:52 Labs: Laboratory Results - last 24 hr 02/15/23 06:52: WBC 10.1, RBC 3.60 L, Hgb 9.1 L, Hct 31.2 L, MCV 86.7, MCH 25.3 L, MCHC 29.2 L, RDW Std Deviation 58.4 H, RDW Coeff of Aris 18.3 H, Plt Count 550 H, MPV 9.6, Immature Gran % (Auto) 2.000 H, Neut % (Auto) 80.2 H, Lymph % (Auto) 13.6 L, [place] % (Auto) 3.9, Eos % (Auto) 0.0, Baso % (Auto) 0.3, Absolute Neuts (auto) 8.1 H, Absolute Lymphs (auto) 1.37, Nucleated RBC % 0, Sodium 139, Potassium 3.3 L, Chloride 110 H, Carbon Dioxide 25.0, Anion Gap 4 L, BUN 7, Creatinine 0.42 L, Estim Creat Clear Calc 40.81, Est GFR (MDRD) Af Amer 190, Est GFR (MDRD) Non-Af 157, BUN/Creatinine Ratio 16.6, Glucose 85, Calcium 8.9, Phosphorus 3.0, Magnesium 1.6 Micro: Microbiology 02/13/23 15:00 Blood Culture (Wb) - Anticubital Left Blood Culture - Preliminary No growth in 48 hours. 02/13/23 14:15 Blood Culture (Wb) - Anticubital Left Blood Culture - Preliminary No growth in 48 hours. 02/14/23 19:47 Stool Enteric Bacteriology - Final 02/14/23 20:57 Stool C. difficile DNA Amplification - Final Radiology Impression Abdomen/Pelvis CT 02/15/23 11:06 IMPRESSION: Findings suggestive of a colonic ileus or a partial colonic obstruction. Indeterminant soft tissue filling defect within the sigmoid colon, may be secondary to volume averaging however cannot exclude an underlying neoplastic process, recommend direct visualization. Atherosclerosis. Electronically Signed: Viviane Toure MD at 14:53 EDT , Charges/Coding Visit Charges Inpatient E&M: 44982 Init Hosp L2
[2023-02-15] MEDS: Magnesium Sulfate 2 GM in Dextrose 5%-Water (100mL Bag) 100 ML IV (19:25)
[2023-02-15 23:35] VITALS: BP 120/58; PULSE 58; RESP 18; TEMP 36.6; O2SAT 97
[2023-02-15] MEDS: MELATONIN 3 MG TABLET PO (23:38)
[2023-02-15] MEDS: Acetaminophen 500 MG Tablet PO (23:38)
[2023-02-16 05:00] VITALS: BP 103/55; PULSE 50; RESP 16; TEMP 36.6; O2SAT 98
[2023-02-16] MEDS: Gabapentin 300 MG Capsule PO ×3 (05:31→22:17)
[2023-02-16] MEDS: 0.9% Normal Saline (1000mL) 1,000 ML 125 ML IV ×3 (05:31→22:19)
[2023-02-16 06:00] VITALS: BMI 47.0
[2023-02-16 06:09] LABS: Absolute Lymphocyte Count 1.62 X10^3/uL (0.83-4.51); Absolute Neutrophil Count 7.2 X10^3/uL (2.0-7.7); Basophil# 0.03 X10^3/uL; Basophil% 0.3 % (0-1); Hematocrit 31.9 % (37-47); Hemoglobin 8.9 g/dL (12.0-15.0); Lymphocyte # 1.62 X10^3/ul (0.83-4.51); Lymphocyte % 17.1 % (19-41); Mean Corp Hgb Conc 27.9 g/dL (32-36); Mean Corpuscular Hgb 24.7 pg (27.0-32.0); Mean Corpuscular Volume 88.4 fL (81-99); Mean Platelet Vol. 9.9 fl (6.2-12.0); Monocyte% 5.3 % (0-10); NRBC Flagged by Analyzer 0 % (0-5); Neutrophil # 7.18 X10^3/uL (2.7-7.7); Neutrophil % 75.7 % (47-70); Platelet Count 582 K/mm3 (150-450); RBC Distribution Width CV 18.4 % (11.6-14.6); RBC Distribution Width SD 59.8 fl (35.1-43.9); Red Blood Count 3.61 M/mm3 (4.2-5.4); White Blood Count 9.5 K/mm3 (4.4-11.0)
[2023-02-16 06:29] LABS: Anion Gap 6 (5-15); BUN 5 mg/dL (7-18); BUN/Creat Ratio 12.2 RATIO (10-20); Calcium,Total 8.5 mg/dL (8.5-10.1); Chloride 109 mmol/L (98-107); Creatinine, Serum 0.41 mg/dL (0.55-1.02); EST Glomerular Filtration Rate 162 mL/min (>60); Est Glom Filt Rate - Afr Amer 196 mL/min (>60); Estimated Creatinine Clearance 40.81 ml/min; Glucose 89 mg/dL (74-106); Potassium 3.3 mmol/L (3.5-5.1); Sodium Level 139 mmol/L (136-145)
--- NOTE | 2023-02-16 08:20 | PCM.PN.HOSP ---
Reason for Visit Reason for Visit: Diagnoses Ileus, unspecified (02/15/23) Subjective Subjective Consult was placed to general surgery Case discussed with Dr. Landin plan is for patient to undergo prep for possible colonoscopy with decompression of the proximal colon Objective Data Objective Data Vital Signs: Vital Signs Temp Pulse Resp BP Pulse Ox O2 Del Method 97.8 F 50 L 16 103/55 L 98 Room Air 02/16/23 05:00 02/16/23 05:00 02/16/23 05:00 02/16/23 05:00 02/16/23 05:00 02/16/23 05:39 Oxygen Delivery Method Room Air Weight: 116 kg Body Mass Index (BMI) 47.0 Intake & Output: Intake and Output for Last 24 Hours 02/14/23 02/15/23 02/16/23 23:59 23:59 23:59 Intake Total 1792.42 / 1792.42 1459.00 / 1459.00 1000 / 1000 Output Total 400 / 400 Balance 1392.42 / 1392.42 1459.00 / 1459.00 1000 / 1000 Lab / Micro Data 02/16/23 05:52 02/16/23 05:52 Labs: Laboratory Results - last 24 hr 02/16/23 05:52: WBC 9.5, RBC 3.61 L, Hgb 8.9 L, Hct 31.9 L, MCV 88.4, MCH 24.7 L, MCHC 27.9 L, RDW Std Deviation 59.8 H, RDW Coeff of Aris 18.4 H, Plt Count 582 H, MPV 9.9, Immature Gran % (Auto) 1.600 H, Neut % (Auto) 75.7 H, Lymph % (Auto) 17.1 L, [place] % (Auto) 5.3, Eos % (Auto) 0.0, Baso % (Auto) 0.3, Absolute Neuts (auto) 7.2, Absolute Lymphs (auto) 1.62, Nucleated RBC % 0, Sodium 139, Potassium 3.3 L, Chloride 109 H, Carbon Dioxide 24.0, Anion Gap 6, BUN 5 L, Creatinine 0.41 L, Estim Creat Clear Calc 40.81, Est GFR (MDRD) Af Amer 196, Est GFR (MDRD) Non-Af 162, BUN/Creatinine Ratio 12.2, Glucose 89, Calcium 8.5 Micro: Microbiology 02/13/23 15:00 Blood Culture (Wb) - Anticubital Left Blood Culture - Preliminary No growth in 48 hours. 02/13/23 14:15 Blood Culture (Wb) - Anticubital Left Blood Culture - Preliminary No growth in 48 hours. 02/14/23 19:47 Stool Enteric Bacteriology - Final 02/14/23 20:57 Stool C. difficile DNA Amplification - Final Radiography Diagnostic Testing: Radiology Impression Abdomen/Pelvis CT 02/15/23 11:06 IMPRESSION: Findings suggestive of a colonic ileus or a partial colonic obstruction. Indeterminant soft tissue filling defect within the sigmoid colon, may be secondary to volume averaging however cannot exclude an underlying neoplastic process, recommend direct visualization. Atherosclerosis. Electronically Signed: Viviane Toure MD at 14:53 EDT , Physical Exam Narrative GENERAL: cooperative HEENT: Atraumatic; normocephalic EYES; Anicteric, Normal Conjunctiva NECK; supple, normal thyroid, RESPIRATORY: Diminished to auscultation CARDIOVASCULAR: Regular S1 S2, GI: soft, normoactive bowel sounds, : No Renal angle tenderness; EXTREMITIES: No edema, no clubbing, MUSCULOSKELETAL: no muscle wasting NEURO: Awake; no lateralizing signs. SKIN: No Rash PSYCH; Flat affect Assessment & Plan Assessment/Plan (1) Ileus: PLAN: Plan Patient is a 72-year-old lady admitted with abdominal distention. CT of the abdomen and pelvis obtained on admission demonstrated findings consistent with colonic ileus. Admitted to regular nursing floor for further management 1. Colonic ileus ? Suspected to be secondary to chronic use of loperamide given patient chronic diarrhea. Suspected offending medications discontinued admitted to regular nursing floor managed symptomatically. Plan is for patient to be referred to be evaluated by GI as outpatient ? 02/15/2023;Repeat imaging studies obtained on 02/14/2023 did showExtensive large bowel dilatation and gas filled and similar compared to most recent CT examination demonstrating diffuse colonic ileus. In the setting of very ill patient consider toxic megacolon.. Patient seen this a.m. has significant reduction in her abdominal distention. Consult placed to general surgery. ? 02/16/2023; Consult was placed to general surgery Case discussed with Dr. Landin plan is for patient to undergo prep for possible colonoscopy with decompression of the proximal colon 2. Recent E. coli bacteremia ? Sensitivities reviewed patient on appropriate antibiotic therapy 3. Anemia - Secondary to chronic disorder monitoring H&H and transfuse if patient becomes symptomatic or hemoglobin falls below 7 4. Hypertension - Blood pressure controlled, home medications continued with dose adjustment as needed 5. Class III obesity with BMI of 45.9 ? Complicating care weight loss advised 6. Paroxysmal atrial fibrillation ? Patient is on digoxin and systemic anticoagulation with apixaban 7. Depression with anxiety ? Patient is on duloxetine 8. Rheumatoid arthritis ? By history currently not on any long-term treatment 9. Obstructive sleep apnea CPAP at night 10. DVT prophylaxis ? Patient is on apixaban Time spent in the patient's overall evaluation,decision-making process, review of diagnostic data, adjustment of management, discussion with other providers, nursing nursing and ancillary staff involved in patient's care documentation, 35 Minutes Charges/Coding Visit Charges Inpatient E&M: 79441 Subs Hosp L2
[2023-02-16] MEDS: dilTIAZem CD 180 MG Capsule PO (10:43)
[2023-02-16] MEDS: Ferrous Sulfate 325 MG Tablet PO (10:43)
[2023-02-16] MEDS: Potassium Chloride Oral Tablet 20 MEQ 40 MEQ PO (10:43)
[2023-02-16 10:44] VITALS: PULSE 50
[2023-02-16] MEDS: Digoxin 125 MCG Tablet PO (10:44)
[2023-02-16] MEDS: Magnesium Chloride 64 MG Delay Rel.Tablet 128 MG PO (10:44)
[2023-02-16] MEDS: Ceftriaxone 1 GM/50 ML BAG IV (10:47)
[2023-02-16] MEDS: Furosemide 20 MG Tablet PO (10:53)
[2023-02-16 11:12] VITALS: BP 113/60; PULSE 50; RESP 18; TEMP 37.2; O2SAT 98
--- NOTE | 2023-02-16 14:23 | PN.SURG_ITS ---
Subjective Subjective Patient seen and examined during AM rounds. She denies any abdominal discomfort and is found resting on my arrival to the room. She denies any bowel movements aside from evacuating the contrast used for her CT imaging. Objective Data Objective Data Vital Signs: Vital Signs Temp Pulse Resp BP Pulse Ox O2 Del Method 98.9 F 50 L 18 113/60 98 Room Air 02/16/23 11:12 02/16/23 11:12 02/16/23 11:12 02/16/23 11:12 02/16/23 11:12 02/16/23 12:00 Oxygen Delivery Method Room Air Weight: 255 lb 11.779 oz Body Mass Index (BMI) 47.0 Intake & Output: Intake and Output for Last 24 Hours 02/14/23 02/15/23 02/16/23 23:59 23:59 23:59 Intake Total 1792.42 / 1792.42 1459.00 / 1459.00 1800 / 1800 Output Total 400 / 400 Balance 1392.42 / 1392.42 1459.00 / 1459.00 1800 / 1800 Lab / Micro Data 02/16/23 05:52 02/16/23 05:52 Labs: Laboratory Results - last 24 hr 02/16/23 05:52: WBC 9.5, RBC 3.61 L, Hgb 8.9 L, Hct 31.9 L, MCV 88.4, MCH 24.7 L , MCHC 27.9 L, RDW Std Deviation 59.8 H, RDW Coeff of Aris 18.4 H, Plt Count 582 H, MPV 9.9, Immature Gran % (Auto) 1.600 H, Neut % (Auto) 75.7 H, Lymph % (Auto) 17.1 L, [place] % (Auto) 5.3, Eos % (Auto) 0.0, Baso % (Auto) 0.3, Absolute Neuts (auto) 7.2, Absolute Lymphs (auto) 1.62, Nucleated RBC % 0, Sodium 139, Potassium 3.3 L, Chloride 109 H, Carbon Dioxide 24.0, Anion Gap 6, BUN 5 L, Creatinine 0.41 L, Estim Creat Clear Calc 40.81, Est GFR (MDRD) Af Amer 196, Est GFR (MDRD) Non-Af 162, BUN/Creatinine Ratio 12.2, Glucose 89, Calcium 8.5 Micro: Microbiology 02/14/23 03:45 Urine Catheter - Catheter Urine Culture - Final Culture exhibits no growth. 02/13/23 15:00 Blood Culture (Wb) - Anticubital Left Blood Culture - Preliminary No growth in 48 hours. 02/13/23 14:15 Blood Culture (Wb) - Anticubital Left Blood Culture - Preliminary No growth in 48 hours. 02/14/23 19:47 Stool Enteric Bacteriology - Final 02/14/23 20:57 Stool C. difficile DNA Amplification - Final Radiography Diagnostic Testing: Radiology Impression Abdomen/Pelvis CT 02/15/23 11:06 IMPRESSION: Findings suggestive of a colonic ileus or a partial colonic obstruction. Indeterminant soft tissue filling defect within the sigmoid colon, may be secondary to volume averaging however cannot exclude an underlying neoplastic process, recommend direct visualization. Atherosclerosis. Electronically Signed: Viviane Toure MD at 14:53 EDT , Physical Exam Const oriented x3 and no apparent distress Resp normal respiratory effort GI GI Narrative: Patient with mildly increased abdominal distention but her abdomen remains soft and nontender to palpation x4 quadrants Assessment & Plan Assessment/Plan (1) Ileus: PLAN: Patient is a 72-year-old female who is admitted for possible colonic ileus after a prolonged period of abdominal distention and diarrhea. There are also intermittent reports of possible melena. Given patient's diffuse colonic distention her differential includes possible colonic pseudoobstruction versus distal mechanical obstruction secondary to mass lesion or benign stricture. To further investigate these possibilities patient underwent a per rectal contrast CT of the abdomen pelvis 02/15. This imaging suggests a possible partial obstruction with a filling defect of the sigmoid colon. Direct evaluation was recommended by radiology. I agree with this recommendation and wish to pursue a colonoscopic evaluation of this area tomorrow 02/17/2023. In anticipation of this procedure I will have patient complete a bowel prep today. She can continue her clear liquid diet until midnight and then should revert to an n.p.o. status with IV fluid support.
[2023-02-16] MEDS: DULoxetine Hcl 60 MG Capsule PO (15:04)
[2023-02-16] MEDS: Menthol/Lanolin/Calamine/Znox 113 GM Tube 1 APPLIC TOPICAL ×4 (15:04→22:19)
[2023-02-16 15:10] VITALS: BP 122/53; PULSE 50; RESP 18; TEMP 36.9; O2SAT 98
[2023-02-16] MEDS: Electrolyte Solution/Peg's 4000 ML 2000 ML PO (16:02)
[2023-02-16 22:24] VITALS: BP 124/67; PULSE 49; RESP 18; TEMP 36.6; O2SAT 97
[2023-02-16] MEDS: Acetaminophen 500 MG Tablet PO (23:25)
[2023-02-17] VITALS (9 sets, daily range): BP systolic 70–132; BP diastolic 57–73; PULSE 55–94; RESP 16–24; TEMP 36.3–36.7; O2SAT 95–100; BMI 47.2; BMI 47.0
[2023-02-17] MEDS: LORazepam 2 MG/ML Syringe 0.5 MG IV (02:48)
[2023-02-17 04:51] LABS: Absolute Lymphocyte Count 1.61 X10^3/uL (0.83-4.51); Absolute Neutrophil Count 10.1 X10^3/uL (2.0-7.7); Basophil# 0.03 X10^3/uL; Basophil% 0.2 % (0-1); Hematocrit 32.7 % (37-47); Hemoglobin 9.5 g/dL (12.0-15.0); Lymphocyte # 1.61 X10^3/ul (0.83-4.51); Lymphocyte % 12.8 % (19-41); Mean Corp Hgb Conc 29.1 g/dL (32-36); Mean Corpuscular Hgb 25.2 pg (27.0-32.0); Mean Corpuscular Volume 86.7 fL (81-99); Mean Platelet Vol. 9.5 fl (6.2-12.0); Monocyte# 0.67 X10^3/uL; Monocyte% 5.3 % (0-10); NRBC Flagged by Analyzer 0 % (0-5); Neutrophil # 10.11 X10^3/uL (2.7-7.7); Neutrophil % 80.6 % (47-70); Platelet Count 599 K/mm3 (150-450); RBC Distribution Width CV 18.6 % (11.6-14.6); RBC Distribution Width SD 59.2 fl (35.1-43.9); Red Blood Count 3.77 M/mm3 (4.2-5.4); White Blood Count 12.6 K/mm3 (4.4-11.0)
--- NOTE | 2023-02-17 05:34 | EKG12_ITS ---
Test Reason : AM EKG Blood Pressure : / mmHG Vent. Rate : 052 BPM Atrial Rate : 052 BPM P-R Int : 176 ms QRS Dur : 102 ms QT Int : 468 ms P-R-T Axes : 075 012 -03 degrees QTc Int : 435 ms Sinus bradycardia Low voltage QRS Nonspecific ST abnormality Abnormal ECG When compared with ECG of 04-FEB-2023 15:14, Vent. rate has decreased BY 30 BPM Confirmed by ARMAND RAMSEY, PATY ([id number]), development editor KENNETH KAUR ([id number]) on 03/04/2023 11:40:23 AM Referred By: FORREST Confirmed By:PATY ACUNA MD
[2023-02-17 05:38] LABS: Anion Gap 5 (5-15); BUN 4 mg/dL (7-18); BUN/Creat Ratio 9.4 RATIO (10-20); Calcium,Total 8.8 mg/dL (8.5-10.1); Chloride 111 mmol/L (98-107); Creatinine, Serum 0.43 mg/dL (0.55-1.02); EST Glomerular Filtration Rate 155 mL/min (>60); Est Glom Filt Rate - Afr Amer 188 mL/min (>60); Estimated Creatinine Clearance 40.81 ml/min; Glucose 112 mg/dL (74-106); Potassium 3.6 mmol/L (3.5-5.1); Sodium Level 142 mmol/L (136-145)
[2023-02-17 05:52] LABS: Digoxin Level 0.51 ng/mL (0.80-2.00)
[2023-02-17] MEDS: 0.9% Normal Saline (1000mL) 1,000 ML 125 ML IV ×2 (07:51→20:05)
--- NOTE | 2023-02-17 08:29 | PN.HOSP_ITS ---
Reason for Visit Reason for Visit: Diagnoses Ileus, unspecified (02/15/23) Subjective Subjective Feeling ok. Objective Data Objective Data Vital Signs: Vital Signs Temp Pulse Resp BP Pulse Ox O2 Del Method 36.7 C 55 L 18 116/68 95 Room Air 02/17/23 04:30 02/17/23 04:30 02/17/23 04:30 02/17/23 04:30 02/17/23 04:30 02/17/23 04:30 Oxygen Delivery Method Room Air Weight: 116.5 kg Body Mass Index (BMI) 47.2 Intake & Output: Intake and Output for Last 24 Hours 02/15/23 02/16/23 02/17/23 23:59 23:59 23:59 Intake Total 1459.00 / 1459.00 4554.17 / 4554.17 1000 / 1000 Output Total 400 / 400 Balance 1459.00 / 1459.00 4554.17 / 4554.17 600 / 600 Lab / Micro Data 02/17/23 04:35 02/17/23 04:35 Labs: Laboratory Results - last 24 hr 02/17/23 04:35: WBC 12.6 H, RBC 3.77 L, Hgb 9.5 L, Hct 32.7 L, MCV 86.7, MCH 25.2 L, MCHC 29.1 L, RDW Std Deviation 59.2 H, RDW Coeff of Aris 18.6 H, Plt Count 599 H, MPV 9.5, Immature Gran % (Auto) 1.100 H, Neut % (Auto) 80.6 H, Lymph % (Auto) 12.8 L, [place] % (Auto) 5.3, Eos % (Auto) 0.0, Baso % (Auto) 0.2, Absolute Neuts (auto) 10.1 H, Absolute Lymphs (auto) 1.61, Nucleated RBC % 0, Sodium 142, Potassium 3.6, Chloride 111 H, Carbon Dioxide 26.0, Anion Gap 5, BUN 4 L, Creatinine 0.43 L, Estim Creat Clear Calc 40.81, Est GFR (MDRD) Af Amer 188, Est GFR (MDRD) Non-Af 155, BUN/Creatinine Ratio 9.4 L, Glucose 112 H, Calci um 8.8, Digoxin 0.51 L Micro: Microbiology 02/14/23 03:45 Urine Catheter - Catheter Urine Culture - Final Culture exhibits no growth. 02/13/23 15:00 Blood Culture (Wb) - Anticubital Left Blood Culture - Preliminary No growth in 48 hours. 02/13/23 14:15 Blood Culture (Wb) - Anticubital Left Blood Culture - Preliminary No growth in 48 hours. 02/14/23 19:47 Stool Enteric Bacteriology - Final 02/14/23 20:57 Stool C. difficile DNA Amplification - Final Physical Exam Const alert and no apparent distress HEENT head/scalp atraumatic Resp normal respiratory effort, no retractions, no use of accessory muscles and clear to auscultation bilaterally Cardio regular rate, regular rhythm, S1 normal heart sound and S2 normal heart sound GI normal to inspection, nondistended, normoactive bowel sounds Assessment & Plan Assessment/Plan (1) Volvulus: PLAN: v. pseudo obstruction GS on consult Colonoscopy shows torturous colon. Localized mild mucosal changes in the sigmoid colon. EGD unremarkable. PLAN: Plan Recent E. coli bacteremia * positive on the * subsequent Cx negative * on CTX, continue for now pending colonosocpy, if not evidence of colitis, dc abx. Chronic conditions * Anemia- Secondary to chronic disorder monitoring H&H and transfuse if patient becomes symptomatic or hemoglobin falls below 7 * Hypertension- Blood pressure controlled, home medications continued with dose adjustment as needed * Class III obesity with BMI of 45.9? Complicating care weight loss advised * Paroxysmal atrial fibrillation? Patient is on digoxin and systemic anticoagulation with apixaban * Depression with anxiety Patient is on duloxetine * Rheumatoid arthritis? By history currently not on any long-term treatment * Obstructive sleep apneaCPAP at night DVT prophylaxis: not indicated as pt on apixaban. Charges/Coding Visit Charges Inpatient E&M: 81646 Subs Hosp L2
--- NOTE | 2023-02-17 08:33 | PCM.PN.SRG ---
Subjective Subjective Patient seen and examined during AM rounds. She reports that it was difficult for her to take the volume with her bowel prep, but otherwise it was not a problem for her. She has a fecal management system in place and nursing confirms that the output for them has been clear. Patient denies any significant abdominal discomfort this morning. Objective Data Objective Data Vital Signs: Vital Signs Temp Pulse Resp BP Pulse Ox O2 Del Method 98.1 F 55 L 18 116/68 95 Room Air 02/17/23 04:30 02/17/23 04:30 02/17/23 04:30 02/17/23 04:30 02/17/23 04:30 02/17/23 04:30 Oxygen Delivery Method Room Air Weight: 256 lb 13.416 oz Body Mass Index (BMI) 47.2 Intake & Output: Intake and Output for Last 24 Hours 02/15/23 02/16/23 02/17/23 23:59 23:59 23:59 Intake Total 1459.00 / 1459.00 4554.17 / 4554.17 1000 / 1000 Output Total 400 / 400 Balance 1459.00 / 1459.00 4554.17 / 4554.17 600 / 600 Lab / Micro Data 02/17/23 04:35 02/17/23 04:35 Labs: Laboratory Results - last 24 hr 02/17/23 04:35: WBC 12.6 H, RBC 3.77 L, Hgb 9.5 L, Hct 32.7 L, MCV 86.7, MCH 25.2 L, MCHC 29.1 L, RDW Std Deviation 59.2 H, RDW Coeff of Aris 18.6 H, Plt Count 599 H, MPV 9.5, Immature Gran % (Auto) 1.100 H, Neut % (Auto) 80.6 H, Lymph % (Auto) 12.8 L, [place] % (Auto) 5.3, Eos % (Auto) 0.0, Baso % (Auto) 0.2, Absolute Neuts (auto) 10.1 H, Absolute Lymphs (auto) 1.61, Nucleated RBC % 0, Sodium 142, Potassium 3.6, Chloride 111 H, Carbon Dioxide 26.0, Anion Gap 5, BUN 4 L, Creatinine 0.43 L, Estim Creat Clear Calc 40.81, Est GFR (MDRD) Af Amer 188, Est GFR (MDRD) Non-Af 155, BUN/Creatinine Ratio 9.4 L, Glucose 112 H, Calcium 8.8, Digoxin 0.51 L Micro: Microbiology 02/14/23 03:45 Urine Catheter - Catheter Urine Culture - Final Culture exhibits no growth. 02/13/23 15:00 Blood Culture (Wb) - Anticubital Left Blood Culture - Preliminary No growth in 48 hours. 02/13/23 14:15 Blood Culture (Wb) - Anticubital Left Blood Culture - Preliminary No growth in 48 hours. 02/14/23 19:47 Stool Enteric Bacteriology - Final 02/14/23 20:57 Stool C. difficile DNA Amplification - Final Physical Exam Const oriented x3 and no apparent distress Resp normal respiratory effort GI GI Narrative: Distended but improved from yesterday, soft, nontender to palpation x4 quadrants Assessment & Plan Assessment/Plan (1) Ileus: PLAN: Patient is a 72-year-old female who is admitted for possible colonic ileus after a prolonged period of abdominal distention and diarrhea. There are also intermittent reports of possible melena. Given patient's diffuse colonic distention her differential includes possible colonic pseudoobstruction versus distal mechanical obstruction secondary to mass lesion or benign stricture. To further investigate these possibilities patient underwent a per rectal contrast CT of the abdomen pelvis 02/15. This imaging suggests a possible partial obstruction with a filling defect of the sigmoid colon. Direct evaluation was recommended by radiology. I agree with this recommendation and pursue a diagnostic colonoscopy later today. Please keep n.p.o. Charges/Coding Visit Charges Inpatient E&M: 77983 Subs Hosp L2
[2023-02-17] MEDS: Ceftriaxone 1 GM/50 ML BAG IV (09:48)
--- NOTE | 2023-02-17 10:24 | NURSING ---
pot to surgery
--- NOTE | 2023-02-17 11:30 | IMM_PTH ---
PATIENT: JENNI BOOTHE LOC: MS3 U#:[id number] AGE/SX: 72/F ROOM: [facility] [place] RE02/15/[address]: Dr. Shane Huggins DO : 1950 BED: 1 DIS: 02/19/2023 SPEC #: [id number] RECD: 02/18/23 10:05 STATUS: KATIE RECady #: [id number] KATY: 02/17/23 11:[address]: Isaiah Landin DEPT: IMMUNOHISTOCHEMISTRY RECD BY: Joslyn Bazan ENTERED: 02/18/23 10:06 SP TYPE: IMMUNO OTHR DR: MD Dr. Isacc De La Rosa MD Dr. Eric Jopperi, DO Dr. J. Eric Miller, MD Tissues: B - Stomach, NOS Procedures: H Pylori (initial) PHYSICIAN & INSTITUTION [place] [address] SPECIMEN INFORMATION: Tissue Source: B - Gastric antrum Clinical Info: Colonic ileus, colonic dilation, sigmoid stricture Specimen Number: [id number] CPT code: 45088 METHODOLOGY: Deparaffinized sections of prefer/formalin-fixed tissue or PAP/DQ stained slides are incubated with monoclonal/polyclonal antibodies/oligonucleotide probes. Localization is made via biotin free immunoperoxidase method. Appropriate controls are performed and reacted as expected. Results on target cell population are indicated in the following table: RESULTS: ANTIBODY / CLONE RESULT Block B H Pylori (polyclonal) negative These tests were developed and their performance characteristics determined by [facility]. They may not have been cleared or approved by the U.S. Food and Drug Administration. The FDA has determined that such clearance or approval is not necessary. The above immunohistochemical/dualISH markers are ordered and reviewed by the Pathologist. INTERPRETATION: B. Gastric antrum, biopsy: Negative for Helicobacter pylori organisms. SJ:eneida 02/19/2023
--- NOTE | 2023-02-17 11:30 | EGD_PTH ---
PATIENT: JENNI BOOTHE LOC: MS3 U#:[id number] AGE/SX: 72/F ROOM: [facility] [place] RE02/15/[address]: Dr. Shane Huggins DO : 1950 BED: 1 DIS: 02/19/2023 SPEC #: [id number] RECD: 02/17/23 16:12 STATUS: KATIE KOVACS #: [id number] KATY: 02/17/23 11:[address]: Isaiah Landin DEPT: SURGICAL PATHOLOGY RECD BY: Annika Claire ENTERED: 02/18/23 08:02 SP TYPE: EGD BIOPSY OTHR DR: MD Dr. Isacc De La Rosa MD Dr. Eric Jopperi, DO Dr. J. Eric Miller, MD Dr. Michael Bortz, MD Tissues: A - Duodenum, NOS B - Gastric mucous membrane C - Esophagus, NOS D - Cecum, NOS E - Descending colon F - Sigmoid colon biopsy Procedures: Special Stain Group II Surgery Specimen Level IV Alcian Blue/PAS (control) Comments: @ Ordering doctor for IV edited from to @ by RGOOD at 02/18/23 1006 @ Submitting doctor edited from to @ by LUIS at 02/18/23 1006 HEADER OPERATION: Colonoscopy, EGD PRE-OP DIAGNOSIS: Colonic ileus, colonic dilation, sigmoid stricture TISSUE SUBMITTED: A - Duodenal bulb nodule biopsy, B - Gastric antrum biopsy for H. pylori and path, C - Z-line biopsy, D - Cecal mucosa biopsy, E - Descending colon mucosa, F - Sigmoid colon mucosa MICROSCOPIC DIAGNOSIS A. Duodenal bulb nodule, biopsy: Fragments of small intestinal mucosa, no pathologic diagnosis. B. Gastric antrum, biopsy: Mild gastritis. See microscopic description and comment. C. Z-line biopsy: Fragments of gastroesophageal mucosa with focal mild acute and chronic inflammation. Intestinal metaplasia (goblet cell metaplasia) not identified. See comment. D. Cecal mucosa, biopsy: Focal mild acute colitis. See comment. E. Descending colon mucosa, biopsy: Fragments of colonic mucosa, no pathologic diagnosis. F. Sigmoid colon mucosa, biopsy: A fragment of colonic mucosa with focal minimal glandular distortion. See comment. SJ:eneida 02/19/2023 COMMENT B. The results of immunohistochemistry for Helicobacter pylori will be reported separately ([id number]). C. Alcian blue/PAS stain with matched control is used in the evaluation of the specimen. D. Rare cryptitis and crypt abscesses are noted. Correlation with clinical, endoscopic findings and appropriate follow up are necessary. MICROSCOPIC DESCRIPTION Slides are reviewed. B. The specimen shows fragments of gastric mucosa with chronic inflammatory cell infiltrates in the lamina propria consisting of lymphocytes and plasma cells, consistent with mild chronic gastritis. GROSS DESCRIPTION A - Received in fixative is one container labeled with the patient's name and designated duodenal bulb nodule biopsy. The specimen consists of two irregular fragments of light fuentes soft tissue that in aggregate measure 0.5 x 0.3 x 0.1 cm. The specimen is totally submitted in one cassette. B - Received in fixative is one container labeled with the patient's name and designated gastric antrum biopsy. The specimen consists of two irregular fragments of light fuentes soft tissue that in aggregate measure 0.6 x 0.4 x 0.1 cm. The specimen is totally submitted in one cassette. C - Received in fixative is one container labeled with the patient's name and designated Z-line biopsy. The specimen consists of two irregular fragments of light fuentes soft tissue that in aggregate measure 0.6 x 0.3 x 0.1 cm. The specimen is totally submitted in one cassette. D - Received in fixative is one container labeled with the patient's name and designated cecal mucosa. The specimen consists of multiple irregular fragments of light fuentes soft tissue that in aggregate measure 0.6 x 0.4 x 0.1 cm. The specimen is totally submitted in one cassette. E - Received in fixative is one container labeled with the patient's name and designated descending colon mucosa. The specimen consists of two irregular fragments of light fuentes soft tissue that in aggregate measure 0.6 x 0.3 x 0.1 cm. The specimen is totally submitted in one cassette. F - Received in fixative is one container labeled with the patient's name and designated sigmoid colon mucosa. The specimen consists of one irregular fragment of light fuentes soft tissue that measures 0.4 x 0.2 x 0.1 cm. The specimen is totally submitted in one cassette. / SJ:eneida 02/18/2023 TC:2 CPT: 17606 x6, 45449
[2023-02-17] MEDS: Lactated Ringers 1,000 ML 15 ML IV (13:10)
--- NOTE | 2023-02-17 13:29 | OP.EGD_ITS ---
Patient Name: Alma Koch Procedure Date: 02/17/2023 11:50 AM Date of : 1950 Age: 72 Procedure: Upper GI endoscopy Indications: Iron deficiency anemia, Melena Providers: Isaiah Landin MD Medicines: See the Anesthesia note for documentation of the administered medications Patient Profile: Refer to note in patient chart for documentation of history and physical. Complications: No immediate complications. Estimated blood loss: Minimal. Procedure: Pre-Anesthesia Assessment: - The heart rate, respiratory rate, oxygen saturations, blood pressure, adequacy of pulmonary ventilation, and response to care were monitored throughout the procedure. After obtaining informed consent, the endoscope was passed under direct vision. Throughout the procedure, the patient's blood pressure, pulse, and oxygen saturations were monitored continuously. The gastroscope was introduced through the mouth, and advanced to the second part of duodenum. The upper GI endoscopy was somewhat difficult due to the patient's discomfort during the procedure. Successful completion of the procedure was aided by increasing the dose of sedation medication. The patient tolerated the procedure fairly well. Scope In: 12:07:27 PM Scope Out: 12:24:42 PM Total Procedure Duration Time 0 hours 17 minutes 15 seconds Findings: The first portion of the duodenum and second portion of the duodenum were normal. No biopsies or other specimens were collected for this exam. A few 3 mm mucosal nodules with a localized distribution were found in the duodenal bulb. Biopsies were taken with a cold forceps for histology. Estimated blood loss was minimal. Diffuse mildly erythematous mucosa without bleeding was found in the gastric body and in the gastric antrum. Biopsies were taken with a cold forceps for Helicobacter pylori testing. Estimated blood loss was minimal. The Z-line was irregular and was found 33 cm from the incisors. Biopsies were taken with a cold forceps for histology. Estimated blood loss was minimal. A large hiatal hernia was present. No biopsies or other specimens were collected for this exam. Small (< 5 mm) varices were found in the middle third of the esophagus. They were 4 mm in largest diameter. Impression: - Normal first portion of the duodenum and second portion of the duodenum. No specimens collected. - Mucosal nodule found in the duodenum. Biopsied. - Erythematous mucosa in the gastric body and antrum. Biopsied. - Z-line irregular, 33 cm from the incisors. Biopsied. - Large hiatal hernia. No specimens collected. - Small (< 5 mm) esophageal varices. Recommendation: - [facility]. - Clear liquid diet today. - Resume Eliquis (apixaban) at prior dose in 2 days. Refer to primary physician for further adjustment of therapy. Procedure Code(s): --- Professional --- 12833, Esophagogastroduodenoscopy, flexible, transoral; with biopsy, single or multiple Diagnosis Code(s): --- Professional --- K31.89, Other diseases of stomach and duodenum K22.89, Other specified disease of esophagus K44.9, Diaphragmatic hernia without obstruction or gangrene I85.00, Esophageal varices without bleeding D50.9, Iron deficiency anemia, unspecified K92.1, Melena (includes Hematochezia) CPT copyright 2021 [employer]. All rights reserved. The codes documented in this report are preliminary and upon air carrier operations inspector review may be revised to meet current compliance requirements. Isaiah Landin MD 02/17/2023 1:28:28 PM This report has been signed electronically. Number of Addenda: 0 Note Initiated On: 02/17/2023 11:50 AM
--- NOTE | 2023-02-17 13:29 | OP.CCLET_ITS ---
02/17/2023 Patric Laughlin Md Re : Upper GI endoscopy procedure for Alma Koch [place] This procedure was performed on Friday, February 17, 2023. My impressions and recommendations are as follows: Impressions : - Normal first portion of the duodenum and second portion of the duodenum. No specimens collected. - Mucosal nodule found in the duodenum. Biopsied. - Erythematous mucosa in the gastric body and antrum. Biopsied. - Z-line irregular, 33 cm from the incisors. Biopsied. - Large hiatal hernia. No specimens collected. - Small (< 5 mm) esophageal varices. Recommendations : - [facility]. - Clear liquid diet today. - Resume Eliquis (apixaban) at prior dose in 2 days. Refer to primary physician for further adjustment of therapy. My findings are described in the full procedure note, which is enclosed. If I can be of further assistance, please feel free to contact me at Doctor phone number(s): , Work: . Sincerely, Isaiah Landin MD 02/17/2023 1:28:28 PM This report has been signed electronically.
--- NOTE | 2023-02-17 13:37 | OP.CCLET_ITS ---
02/17/2023 Patric Laughlin Md Re : Colonoscopy procedure for Alma Koch [place] This procedure was performed on Friday, February 17, 2023. My impressions and recommendations are as follows: Impressions : - Tortuous colon. - Localized mild mucosal changes were found in the sigmoid colon, in the descending colon and in the cecum. Biopsied. - Decreased sphincter tone found on digital rectal exam. Recommendations : - [facility]. - Clear liquid diet today. - Resume Eliquis (apixaban) at prior dose in 2 days. - Repeat colonoscopy date to be determined after pending pathology results are reviewed for surveillance based on pathology results. My findings are described in the full procedure note, which is enclosed. If I can be of further assistance, please feel free to contact me at Doctor phone number(s): , Work: . Sincerely, Isaiah Landin MD 02/17/2023 1:37:09 PM This report has been signed electronically.
--- NOTE | 2023-02-17 13:37 | OP.COLON_ITS ---
Patient Name: Alma Koch Procedure Date: 02/17/2023 12:31 PM Date of : 1950 Age: 72 Procedure: Colonoscopy Indications: Abnormal CT of the GI tract, Iron deficiency anemia, Chronic diarrhea Providers: Isaiah Landin MD Medicines: See the Anesthesia note for documentation of the administered medications Patient Profile: Refer to note in patient chart for documentation of history and physical. Last Colonoscopy: 5 years ago. Complications: No immediate complications. Estimated blood loss: Minimal. Procedure: Pre-Anesthesia Assessment: - The heart rate, respiratory rate, oxygen saturations, blood pressure, adequacy of pulmonary ventilation, and response to care were monitored throughout the procedure. - The heart rate, respiratory rate, oxygen saturations, blood pressure, adequacy of pulmonary ventilation, and response to care were monitored throughout the procedure. After I obtained informed consent, the scope was passed under direct vision. Throughout the procedure, the patient's blood pressure, pulse, and oxygen saturations were monitored continuously. The colonoscope was introduced through the anus and advanced to the cecum, identified by the appendiceal orifice, ileocecal valve and palpation. The colonoscopy was technically difficult and complex due to poor bowel prep and a tortuous colon. Successful completion of the procedure was aided by changing the patient to a supine position, using manual pressure and lavage. The patient tolerated the procedure fairly well. Scope In: 12:37:14 PM Scope Withdrawal Time 0 hours 22 minutes 5 seconds Scope Out: 1:16:45 PM Total Procedure Duration Time 0 hours 39 minutes 31 seconds Findings: The transverse colon and ascending colon were moderately tortuous. Advancing the scope required changing the patient to a supine position. Localized mild mucosal changes characterized by congestion (edema) and erythema were found in the sigmoid colon, in the descending colon and in the cecum. Biopsies were taken with a cold forceps for histology. Estimated blood loss was minimal. No additional abnormalities were found on retroflexion. The digital rectal exam findings include decreased sphincter tone. Impression: - Tortuous colon. - Localized mild mucosal changes were found in the sigmoid colon, in the descending colon and in the cecum. Biopsied. - Decreased sphincter tone found on digital rectal exam. Recommendation: - [facility]. - Clear liquid diet today. - Resume Eliquis (apixaban) at prior dose in 2 days. - Repeat colonoscopy date to be determined after pending pathology results are reviewed for surveillance based on pathology results. Procedure Code(s): --- Professional --- 86602, Colonoscopy, flexible; with biopsy, single or multiple Diagnosis Code(s): --- Professional --- K63.89, Other specified diseases of intestine K62.89, Other specified diseases of anus and rectum D50.9, Iron deficiency anemia, unspecified K52.9, Noninfective gastroenteritis and colitis, unspecified R93.3, Abnormal findings on diagnostic imaging of other parts of digestive tract Q43.8, Other specified congenital malformations of intestine CPT copyright 2021 [employer]. All rights reserved. The codes documented in this report are preliminary and upon magnaflux operator review may be revised to meet current compliance requirements. Isaiah Landin MD 02/17/2023 1:37:09 PM This report has been signed electronically. Number of Addenda: 0 Note Initiated On: 02/17/2023 12:31 PM
[2023-02-17] MEDS: Magnesium Chloride 64 MG Delay Rel.Tablet 128 MG PO (14:39)
[2023-02-17] MEDS: DULoxetine Hcl 60 MG Capsule PO (14:39)
[2023-02-17] MEDS: Gabapentin 300 MG Capsule PO ×2 (14:39→22:13)
[2023-02-17] MEDS: dilTIAZem CD 180 MG Capsule PO (14:42)
[2023-02-17] MEDS: Atenolol 50 MG Tablet PO ×2 (14:42→22:13)
[2023-02-17] MEDS: Ensure Clear 120 ML Liquid PO ×2 (14:43→17:14)
[2023-02-17] MEDS: Menthol/Lanolin/Calamine/Znox 113 GM Tube 1 APPLIC TOPICAL ×3 (14:44→22:13)
[2023-02-18] VITALS (7 sets, daily range): BP systolic 108–121; BP diastolic 52–71; PULSE 49–63; RESP 16–18; TEMP 36.4–37.1; O2SAT 96–100; BMI 46.1
[2023-02-18] MEDS: 0.9% Normal Saline (1000mL) 1,000 ML 125 ML IV ×3 (03:37→19:44)
[2023-02-18] MEDS: Gabapentin 300 MG Capsule PO ×3 (05:11→21:37)
[2023-02-18 06:35] LABS: Absolute Lymphocyte Count 1.29 X10^3/uL (0.83-4.51); Basophil# 0.05 X10^3/uL; Basophil% 0.4 % (0-1); Hematocrit 31.9 % (37-47); Hemoglobin 9.2 g/dL (12.0-15.0); Lymphocyte # 1.29 X10^3/ul (0.83-4.51); Lymphocyte % 9.9 % (19-41); Mean Corp Hgb Conc 28.8 g/dL (32-36); Mean Corpuscular Hgb 25.1 pg (27.0-32.0); Mean Corpuscular Volume 87.2 fL (81-99); Mean Platelet Vol. 9.5 fl (6.2-12.0); Monocyte# 0.61 X10^3/uL; Monocyte% 4.7 % (0-10); NRBC Flagged by Analyzer 0 % (0-5); Neutrophil # 11.03 X10^3/uL (2.7-7.7); Neutrophil % 84.2 % (47-70); Platelet Count 538 K/mm3 (150-450); RBC Distribution Width CV 18.9 % (11.6-14.6); RBC Distribution Width SD 59.7 fl (35.1-43.9); Red Blood Count 3.66 M/mm3 (4.2-5.4); White Blood Count 13.1 K/mm3 (4.4-11.0)
[2023-02-18 07:13] LABS: Anion Gap 4 (5-15); BUN 3 mg/dL (7-18); BUN/Creat Ratio 7.5 RATIO (10-20); Calcium,Total 8.2 mg/dL (8.5-10.1); Chloride 113 mmol/L (98-107); EST Glomerular Filtration Rate 167 mL/min (>60); Est Glom Filt Rate - Afr Amer 202 mL/min (>60); Estimated Creatinine Clearance 40.81 ml/min; Glucose 95 mg/dL (74-106); Potassium 2.7 mmol/L (3.5-5.1); Sodium Level 144 mmol/L (136-145)
--- NOTE | 2023-02-18 08:26 | PCM.PN.HOSP ---
Reason for Visit Reason for Visit: Diagnoses Volvulus (02/15/23) Ileus, unspecified (02/15/23) Subjective Subjective Feels well. No new events. Objective Data Objective Data Vital Signs: Vital Signs Temp Pulse Resp BP Pulse Ox O2 Del Method 37.1 C 56 L 16 108/63 96 Room Air 02/18/23 05:05 02/18/23 05:05 02/18/23 05:05 02/18/23 05:05 02/18/23 05:05 02/18/23 05:05 Oxygen Delivery Method Room Air Weight: 113.8 kg Body Mass Index (BMI) 46.1 Intake & Output: Intake and Output for Last 24 Hours 02/16/23 02/17/23 02/18/23 23:59 23:59 23:59 Intake Total 4554.17 / 4554.17 2204.09 / 2204.09 1241.67 / 1241.67 Output Total 700 / 700 1100 / 1100 Balance 4554.17 / 4554.17 1504.09 / 1504.09 141.67 / 141.67 Lab / Micro Data 02/18/23 06:10 02/18/23 06:10 Labs: Laboratory Results - last 24 hr 02/18/23 06:10: WBC 13.1 H, RBC 3.66 L, Hgb 9.2 L, Hct 31.9 L, MCV 87.2, MCH 25.1 L, MCHC 28.8 L, RDW Std Deviation 59.7 H, RDW Coeff of Aris 18.9 H, Plt Count 538 H, MPV 9.5, Immature Gran % (Auto) 0.800, Neut % (Auto) 84.2 H, Lymph % (Auto) 9.9 L, [place] % (Auto) 4.7, Eos % (Auto) 0.0, Baso % (Auto) 0.4, Absolute Neuts (auto) 11.0 H, Absolute Lymphs (auto) 1.29, Nucleated RBC % 0, Sodium 144, Potassium 2.7 L*, Chloride 113 H, Carbon Dioxide 27.0, Anion Gap 4 L, BUN 3 L, Creatinine 0.40 L, Estim Creat Clear Calc 40.81, Est GFR (MDRD) Af Amer 202, Est GFR (MDRD) Non-Af 167, BUN/Creatinine Ratio 7.5 L, Glucose 95, Calcium 8.2 L Micro: Microbiology 02/14/23 03:45 Urine Catheter - Catheter Urine Culture - Final Culture exhibits no growth. 02/13/23 15:00 Blood Culture (Wb) - Anticubital Left Blood Culture - Preliminary No growth in 48 hours. 02/13/23 14:15 Blood Culture (Wb) - Anticubital Left Blood Culture - Preliminary No growth in 48 hours. 02/14/23 19:47 Stool Enteric Bacteriology - Final 02/14/23 20:57 Stool C. difficile DNA Amplification - Final Physical Exam Const alert and no apparent distress HEENT head/scalp atraumatic and moist oral mucous membranes Resp normal respiratory effort, no retractions, no use of accessory muscles and clear to auscultation bilaterally Cardio regular rate, regular rhythm, S1 normal heart sound and S2 normal heart sound GI normal to inspection, nondistended, normoactive bowel sounds, soft to palpation and non-tender Assessment & Plan Assessment/Plan (1) Volvulus: PLAN: v. pseudo obstruction GS on consult Colonoscopy shows torturous colon. Localized mild mucosal changes in the sigmoid colon. Bx performed. EGD unremarkable. Follow up with genera surgery as outpt for pathology review and repeat colonoscopy. Advance diet PLAN: Plan Recent E. coli bacteremia positive on the 12th subsequent Cx negative DC CTX Leukocytosis: Mild elevation, unclear significance. Monitor. Right Tib/Fib fracture healing on xray from 02/[address] NWB RLE Follow up with orthopaedics Chronic conditions Anemia- Secondary to chronic disorder monitoring H&H and transfuse if patient becomes symptomatic or hemoglobin falls below 7 Hypertension- Blood pressure controlled, home medications continued with dose adjustment as needed Class III obesity with BMI of 45.9? Complicating care weight loss advised Paroxysmal atrial fibrillation? Patient is on digoxin and systemic anticoagulation with apixaban. Apixaban to be resumed on 02/19. Depression with anxiety Patient is on duloxetine Rheumatoid arthritis? By history currently not on any long-term treatment Obstructive sleep apnea CPAP QHS DVT prophylaxis: not indicated as pt on apixaban. Disposition: to [facility] long-term v. SNF when medically ready Charges/Coding Visit Charges Inpatient E&M: 27643 Subs Hosp L2
--- NOTE | 2023-02-18 08:27 | PN.SURG_ITS ---
Subjective Subjective Patient seen and examined during AM rounds. She is found resting comfortably in bed. She denies any complaints. Objective Data Objective Data Vital Signs: Vital Signs Temp Pulse Resp BP Pulse Ox O2 Del Method 98.8 F 56 L 16 108/63 96 Room Air 02/18/23 05:05 02/18/23 05:05 02/18/23 05:05 02/18/23 05:05 02/18/23 05:05 02/18/23 05:05 Oxygen Delivery Method Room Air Weight: 250 lb 14.177 oz Body Mass Index (BMI) 46.1 Intake & Output: Intake and Output for Last 24 Hours 02/16/23 02/17/23 02/18/23 23:59 23:59 23:59 Intake Total 4554.17 / 4554.17 2204.09 / 2204.09 1241.67 / 1241.67 Output Total 700 / 700 1100 / 1100 Balance 4554.17 / 4554.17 1504.09 / 1504.09 141.67 / 141.67 Lab / Micro Data 02/18/23 06:10 02/18/23 06:10 Labs: Laboratory Results - last 24 hr 02/18/23 06:10: WBC 13.1 H, RBC 3.66 L, Hgb 9.2 L, Hct 31.9 L, MCV 87.2, MCH 25.1 L, MCHC 28.8 L, RDW Std Deviation 59.7 H, RDW Coeff of Aris 18.9 H, Plt Count 538 H, MPV 9.5, Immature Gran % (Auto) 0.800, Neut % (Auto) 84.2 H, Lymph % (Auto) 9.9 L, [place] % (Auto) 4.7, Eos % (Auto) 0.0, Baso % (Auto) 0.4, Absolute Neuts (auto) 11.0 H, Absolute Lymphs (auto) 1.29, Nucleated RBC % 0, Sodium 144, Potassium 2.7 L*, Chloride 113 H, Carbon Dioxide 27.0, Anion Gap 4 L, BUN 3 L, Creatinine 0.40 L, Estim Creat Clear Calc 40.81, Est GFR (MDRD) Af Amer 202, Est GFR (MDRD) Non-Af 167, BUN/Creatinine Ratio 7.5 L, Glucose 95, Calcium 8.2 L Micro: Microbiology 02/14/23 03:45 Urine Catheter - Catheter Urine Culture - Final Culture exhibits no growth. 02/13/23 15:00 Blood Culture (Wb) - Anticubital Left Blood Culture - Preliminary No growth in 48 hours. 02/13/23 14:15 Blood Culture (Wb) - Anticubital Left Blood Culture - Preliminary No growth in 48 hours. 02/14/23 19:47 Stool Enteric Bacteriology - Final 02/14/23 20:57 Stool C. difficile DNA Amplification - Final Physical Exam Const oriented x3 and no apparent distress Resp normal respiratory effort GI GI Narrative: Nondistended, soft, nontender to palpation x4 quadrants Assessment & Plan Assessment/Plan (1) Ileus: PLAN: Patient is a 72-year-old female who is admitted for possible colonic ileus after a prolonged period of abdominal distention and diarrhea. There are also intermittent reports of possible melena. Given patient's diffuse colonic distention her differential includes possible colonic pseudoobstruction versus distal mechanical obstruction secondary to mass lesion or benign stricture. To further investigate these possibilities patient underwent a per rectal contrast CT of the abdomen pelvis 02/15. This imaging suggests a possible partial obstruction with a filling defect of the sigmoid colon. Direct evaluation was recommended by radiology. Therefore patient was taken for diagnostic colonoscopy yesterday, 02/17/2023. Endoscopic findings included evidence of mild colitis but did not detect any critical strictures or mass lesions. In the absence of these findings I recommend advancement of diet as tolerated and monitoring of patient's abdominal exam. We will follow-up biopsies and forward any recommendations based on these results. Plan has been discussed with patient, patient's daughter, and primary hospitalist. Charges/Coding Visit Charges Inpatient E&M: 30821 Subs Hosp L2
[2023-02-18] MEDS: Potassium Chloride Oral Tablet 20 MEQ 60 MEQ PO (09:26)
[2023-02-18] MEDS: Ferrous Sulfate 325 MG Tablet PO (09:27)
[2023-02-18] MEDS: Menthol/Lanolin/Calamine/Znox 113 GM Tube 1 APPLIC TOPICAL ×4 (09:27→21:37)
[2023-02-18] MEDS: DULoxetine Hcl 60 MG Capsule PO (09:27)
[2023-02-18] MEDS: Magnesium Chloride 64 MG Delay Rel.Tablet 128 MG PO (09:28)
[2023-02-18] MEDS: Potassium Chloride 10mEq/100mL 10 MEQ/100 ML IV.SOLN. 100 MEQ IV BOLUS ×4 (09:40→14:49)
[2023-02-18] MEDS: Digoxin 125 MCG Tablet PO (11:37)
[2023-02-18] MEDS: Furosemide 20 MG Tablet PO (11:37)
[2023-02-18] MEDS: Acetaminophen 325 MG Tablet 650 MG PO (14:56)
[2023-02-19] MEDS: MELATONIN 3 MG TABLET PO (00:15)
[2023-02-19] MEDS: 0.9% Normal Saline (1000mL) 1,000 ML 125 ML IV ×2 (03:38→11:23)
[2023-02-19 06:00] VITALS: BMI 48.5
[2023-02-19] MEDS: Gabapentin 300 MG Capsule PO ×2 (06:09→13:44)
[2023-02-19 06:13] VITALS: BP 134/70; PULSE 64; RESP 18; TEMP 36.6; O2SAT 94
[2023-02-19 06:26] LABS: Absolute Lymphocyte Count 1.43 X10^3/uL (0.83-4.51); Absolute Neutrophil Count 9.2 X10^3/uL (2.0-7.7); Basophil# 0.04 X10^3/uL; Basophil% 0.3 % (0-1); Hemoglobin 8.8 g/dL (12.0-15.0); Lymphocyte # 1.43 X10^3/ul (0.83-4.51); Lymphocyte % 12.5 % (19-41); Mean Corp Hgb Conc 29.3 g/dL (32-36); Mean Corpuscular Hgb 25.4 pg (27.0-32.0); Mean Corpuscular Volume 86.7 fL (81-99); Mean Platelet Vol. 9.5 fl (6.2-12.0); Monocyte# 0.65 X10^3/uL; Monocyte% 5.7 % (0-10); NRBC Flagged by Analyzer 0 % (0-5); Neutrophil # 9.24 X10^3/uL (2.7-7.7); Neutrophil % 80.5 % (47-70); Platelet Count 483 K/mm3 (150-450); RBC Distribution Width CV 19.1 % (11.6-14.6); RBC Distribution Width SD 59.5 fl (35.1-43.9); Red Blood Count 3.46 M/mm3 (4.2-5.4); White Blood Count 11.5 K/mm3 (4.4-11.0)
[2023-02-19 06:49] LABS: Anion Gap 3 (5-15); BUN 2 mg/dL (7-18); BUN/Creat Ratio 5.3 RATIO (10-20); Calcium,Total 7.8 mg/dL (8.5-10.1); Chloride 112 mmol/L (98-107); Creatinine, Serum 0.37 mg/dL (0.55-1.02); EST Glomerular Filtration Rate 181 mL/min (>60); Est Glom Filt Rate - Afr Amer 219 mL/min (>60); Estimated Creatinine Clearance 40.81 ml/min; Glucose 93 mg/dL (74-106); Potassium 3.1 mmol/L (3.5-5.1); Sodium Level 142 mmol/L (136-145)
[2023-02-19] MEDS: Ferrous Sulfate 325 MG Tablet PO (07:50)
[2023-02-19] MEDS: Acetaminophen 325 MG Tablet 650 MG PO ×2 (07:50→12:59)
[2023-02-19 08:00] VITALS: BP 117/64; PULSE 64; RESP 18; TEMP 36.9; O2SAT 96
--- NOTE | 2023-02-19 09:34 | PN.HOSP_ITS ---
Reason for Visit Reason for Visit: Diagnoses Volvulus (02/15/23) Ileus, unspecified (02/15/23) Subjective Subjective Tolerating PO. Objective Data Objective Data Vital Signs: Vital Signs Temp Pulse Resp BP Pulse Ox O2 Del Method 36.9 C 64 18 117/64 96 Room Air 02/19/23 08:00 02/19/23 08:00 02/19/23 08:00 02/19/23 08:00 02/19/23 08:00 02/19/23 08:00 Oxygen Delivery Method Room Air Weight: 120.429 kg Body Mass Index (BMI) 48.5 Intake & Output: Intake and Output for Last 24 Hours 02/17/23 02/18/23 02/19/23 23:59 23:59 23:59 Intake Total 2204.09 / 2204.09 3841.67 / 3841.67 1107.5 / 1107.5 Output Total 700 / 700 1100 / 1100 Balance 1504.09 / 1504.09 2741.67 / 2741.67 1107.5 / 1107.5 Lab / Micro Data 02/19/23 06:18 02/19/23 06:18 Labs: Laboratory Results - last 24 hr 02/19/23 06:18: WBC 11.5 H, RBC 3.46 L, Hgb 8.8 L, Hct 30.0 L, MCV 86.7, MCH 25.4 L, MCHC 29.3 L, RDW Std Deviation 59.5 H, RDW Coeff of Aris 19.1 H, Plt Count 483 H, MPV 9.5, Immature Gran % (Auto) 1.000 H, Neut % (Auto) 80.5 H, L ymph % (Auto) 12.5 L, [place] % (Auto) 5.7, Eos % (Auto) 0.0, Baso % (Auto) 0.3, Absolute Neuts (auto) 9.2 H, Absolute Lymphs (auto) 1.43, Nucleated RBC % 0, Sodium 142, Potassium 3.1 L, Chloride 112 H, Carbon Dioxide 27.0, Anion Gap 3 L, BUN 2 L, Creatinine 0.37 L, Estim Creat Clear Calc 40.81, Est GFR (MDRD) Af Amer 219, Est GFR (MDRD) Non-Af 181, BUN/Creatinine Ratio 5.3 L, Glucose 93, Calcium 7.8 L Micro: Microbiology 02/13/23 15:00 Blood Culture (Wb) - Anticubital Left Blood Culture - Final No growth in 5 days. 02/13/23 14:15 Blood Culture (Wb) - Anticubital Left Blood Culture - Final No growth in 5 days. 02/18/23 10:31 Stool C. difficile DNA Amplification - Final 02/14/23 03:45 Urine Catheter - Catheter Urine Culture - Final Culture exhibits no growth. 02/14/23 19:47 Stool Enteric Bacteriology - Final 02/14/23 20:57 Stool C. difficile DNA Amplification - Final Physical Exam Const alert and no apparent distress HEENT head/scalp atraumatic and moist oral mucous membranes Cardio regular rate, regular rhythm, S1 normal heart sound and S2 normal heart sound GI normal to inspection, nondistended, normoactive bowel sounds and soft to palpation Assessment & Plan Assessment/Plan (1) Volvulus: PLAN: ruled out appears to be an ileus v. pseudo obstruction Colonoscopy shows torturous colon. Localized mild mucosal changes in the sigmoid colon. Bx performed. EGD unremarkable. Follow up with genera surgery as outpt for pathology review and repeat colonoscopy. Advance diet (2) Hypokalemia: PLAN: replace PLAN: Plan Recent E. coli bacteremia * positive on the * subsequent Cx negative * DC CTX Leukocytosis: * Mild elevation, unclear significance. * Monitor. Right Tib/Fib fracture * healing on xray from 02/04 * splint in place. * NWB RLE * Follow up with orthopaedics Chronic conditions * Anemia- Secondary to chronic disorder monitoring H&H and transfuse if patient becomes symptomatic or hemoglobin falls below 7 * Hypertension- Blood pressure controlled, home medications continued with dose adjustment as needed * Class III obesity with BMI of 45.9? Complicating care weight loss advised * Paroxysmal atrial fibrillation? Patient is on digoxin and systemic anticoagulation with apixaban. Apixaban to be resumed on 02/19. * Depression with anxiety Patient is on duloxetine * Rheumatoid arthritis? By history currently not on any long-term treatment * Obstructive sleep apnea CPAP QHS * DVT prophylaxis: not indicated as pt on apixaban. Disposition: to [facility] long-term v. SNF today
--- NOTE | 2023-02-19 10:04 | PN.SURG_ITS ---
Subjective Subjective Patient seen and evaluated during AM rounds. She is resting comfortably in bed. She states that she had some nausea with her diet yesterday but feels better today. She denies any abdominal discomfort or distention this morning. Objective Data Objective Data Vital Signs: Vital Signs Temp Pulse Resp BP Pulse Ox O2 Del Method 98.5 F 64 18 117/64 96 Room Air 02/19/23 08:00 02/19/23 08:00 02/19/23 08:00 02/19/23 08:00 02/19/23 08:00 02/19/23 08:00 Oxygen Delivery Method Room Air Weight: 265 lb 8 oz Body Mass Index (BMI) 48.5 Intake & Output: Intake and Output for Last 24 Hours 02/17/23 02/18/23 02/19/23 23:59 23:59 23:59 Intake Total 2204.09 / 2204.09 3841.67 / 3841.67 1107.5 / 1107.5 Output Total 700 / 700 1100 / 1100 Balance 1504.09 / 1504.09 2741.67 / 2741.67 1107.5 / 1107.5 Lab / Micro Data 02/19/23 06:18 02/19/23 06:18 Labs: Laboratory Results - last 24 hr 02/19/23 06:18: WBC 11.5 H, RBC 3.46 L, Hgb 8.8 L, Hct 30.0 L, MCV 86.7, MCH 25.4 L, MCHC 29.3 L, RDW Std Deviation 59.5 H, RDW Coeff of Aris 19.1 H, Plt Count 483 H, MPV 9.5, Immature Gran % (Auto) 1.000 H, Neut % (Auto) 80.5 H, Lymph % (Auto) 12.5 L, [place] % (Auto) 5.7, Eos % (Auto) 0.0, Baso % (Auto) 0.3, Absolute Neuts (auto) 9.2 H, Absolute Lymphs (auto) 1.43, Nucleated RBC % 0, Sodium 142, Potassium 3.1 L, Chloride 112 H, Carbon Dioxide 27.0, Anion Gap 3 L, BUN 2 L, Creatinine 0.37 L, Estim Creat Clear Calc 40.81, Est GFR (MDRD) Af Amer 219, Est GFR (MDRD) Non-Af 181, BUN/Creatinine Ratio 5.3 L, Glucose 93, Calcium 7.8 L Micro: Microbiology 02/13/23 15:00 Blood Culture (Wb) - Anticubital Left Blood Culture - Final No growth in 5 days. 02/13/23 14:15 Blood Culture (Wb) - Anticubital Left Blood Culture - Final No growth in 5 days. 02/18/23 10:31 Stool C. difficile DNA Amplification - Final 02/14/23 03:45 Urine Catheter - Catheter Urine Culture - Final Culture exhibits no growth. 02/14/23 19:47 Stool Enteric Bacteriology - Final 02/14/23 20:57 Stool C. difficile DNA Amplification - Final Physical Exam Const oriented x3 and no apparent distress Resp normal respiratory effort GI GI Narrative: Flat, nondistended, soft, nontender to palpation x4 quadrants Assessment & Plan Assessment/Plan (1) Ileus: PLAN: Patient is a 72-year-old female who is admitted for possible colonic ileus after a prolonged period of abdominal distention and diarrhea. There were also intermittent reports of possible melena. Given patient's diffuse colonic distention her differential includes possible colonic pseudoobstruction versus distal mechanical obstruction secondary to mass lesion or benign stricture. To further investigate these possibilities patient underwent a per rectal contrast CT of the abdomen pelvis 02/15. This imaging suggested a possible partial obstruction with a filling defect of the sigmoid colon. Direct evaluation was recommended by radiology. Therefore patient was taken for diagnostic colonoscopy 02/17/2023. Endoscopic findings included evidence of mild colitis b ut did not detect any critical strictures or mass lesions. In the absence of these findings I recommended advancement of diet as tolerated and monitoring of patient's abdominal exam. We will follow-up biopsies and forward any recommendations based on these results. Patient appears to have had some mild intolerance of her diet yesterday?potentially owing to prior interruptions and use of antibiotics?we will follow how she does today. If she tolerates her diet better she could be eligible for discharge from a surgical standpoint. As above, we will plan to follow-up with patient regarding her pathology results which may still be a few days and coming. Charges/Coding Visit Charges Inpatient E&M: 65878 Subs Hosp L2
--- NOTE | 2023-02-19 11:08 | CASEMGMT ---
Discharge Planning Msg sent to [facility] via [facility] regarding bed hold and arely status. Awaiting response. Makayla Rice, Discharge Planning Asst.
[2023-02-19] MEDS: dilTIAZem CD 180 MG Capsule PO (11:21)
[2023-02-19] MEDS: Potassium Chloride Oral Tablet 20 MEQ 60 MEQ PO (11:21)
[2023-02-19] MEDS: Menthol/Lanolin/Calamine/Znox 113 GM Tube 1 APPLIC TOPICAL ×2 (11:22→13:44)
[2023-02-19] MEDS: DULoxetine Hcl 60 MG Capsule PO (11:22)
[2023-02-19] MEDS: Miconazole Nitrate 43 GM Bottle 1 APPLIC TOPICAL (11:22)
[2023-02-19] MEDS: Furosemide 20 MG Tablet PO (11:22)
[2023-02-19] MEDS: Atenolol 50 MG Tablet PO (11:22)
[2023-02-19] MEDS: Magnesium Chloride 64 MG Delay Rel.Tablet 128 MG PO (11:22)
[2023-02-19 12:18] VITALS: PULSE 64
[2023-02-19] MEDS: Digoxin 125 MCG Tablet PO (12:18)
--- NOTE | 2023-02-19 12:27 | NURSING ---
due to technical error- charting by Lily Darnell RN 02/18 [id number] was charted by Yanelis Wylie LPN
--- NOTE | 2023-02-19 12:53 | PCM.TXEXTCAR ---
Diet Diet Order/Speech Therapy: 02/18/23 11:33 Diet: Transitional Is pt able to select menu?: No Diet Comments: except meds Wound(s) Right lower abd. fold: Wound Type: red Therapies Weight Bearing: Full weight bearing Physical Therapy: Eval and Treat Occupational Therapy: Eval and Treat Problem/Diagnosis (1) Volvulus: Status: Acute Code(s): K56.2 - Volvulus Plan: ruled out appears to be an ileus v. pseudo obstruction Colonoscopy shows torturous colon. Localized mild mucosal changes in the sigmoid colon. Bx performed. EGD unremarkable. Follow up with genera surgery as outpt for pathology review and repeat colonoscopy. Advance diet (2) Hypokalemia: Status: Acute Code(s): E87.6 - Hypokalemia Plan: replace Plan Recent E. coli bacteremia positive on the 12th subsequent Cx negative DC CTX Leukocytosis: Mild elevation, unclear significance. Monitor. Right Tib/Fib fracture healing on xray from 02/[address] NWB RLE Follow up with orthopaedics Chronic conditions Anemia- Secondary to chronic disorder monitoring H&H and transfuse if patient becomes symptomatic or hemoglobin falls below 7 Hypertension- Blood pressure controlled, home medications continued with dose adjustment as needed Class III obesity with BMI of 45.9? Complicating care weight loss advised Paroxysmal atrial fibrillation? Patient is on digoxin and systemic anticoagulation with apixaban. Apixaban to be resumed on 02/19. Depression with anxiety Patient is on duloxetine Rheumatoid arthritis? By history currently not on any long-term treatment Obstructive sleep apnea CPAP QHS DVT prophylaxis: not indicated as pt on apixaban. Disposition: to [facility] long-term v. SNF today Allergies/Procedures Done in Hospital Allergies HEATHER Inhibitors Allergy (Mild, Verified 02/13/23 17:35) PT UNSURE OF REACTION ibuprofen Allergy (Verified 02/15/23 09:11) Itching Procedures: Colonoscopy and EGD Type of Care/Length of Stay Estimated LOS: More Than 30 Days Type of Care Needed: Residential/Assisted Living Rehab Potential: Fair Prognosis: Good Additional Orders/Day of Discharge Day of Discharge: 02/19/23 Dietary and Speech Recommendations Dietitian Recommendations/Changes: Recommend Transitional diet as tolerated with goal of cardiac diet. RD will discontinue Ensure Clear with medpass. Discharge Plan Admission Admit Date/Time: 02/15/23 11:26 Primary Reason for Your Visit: ileus Attending Provider: Shane Huggins Primary Care Provider: Patric Laughlin Consulting Providers: Emma Villalpando; Isaiah Landin; Isacc Kendall Discharge Orders/Prescriptions Prescriptions: Continued ipratropium-albuterol 0.5 mg-3 mg(2.5 mg base)/3 mL solution for nebulization 3 ml inhalation Q4H PRN (Reason: shortness of breath) loperamide [Imodium A-D] 2 mg capsule 2 mg PO Q6H PRN (Reason: loose stool) diltiazem HCl 180 mg capsule,extended release 24hr 180 mg PO DAILY Patient Comments: at bedtime magnesium oxide 400 mg (241.3 mg magnesium) tablet 400 mg PO DAILY oxybutynin chloride [Ditropan XL] 5 mg tablet extended release 24hr 5 mg PO DAILY Patient Comments: at bedtime gabapentin 300 mg capsule 300 mg PO Q8 digoxin 125 mcg (0.125 mg) tablet 125 mcg PO DAILY furosemide [Lasix] 20 mg tablet 20 mg PO DAILY ferrous sulfate 325 mg (65 mg iron) tablet,delayed release (DR/EC) 325 mg PO DAILY Patient Comments: at bedtime ondansetron 4 mg tablet,disintegrating 4 mg PO Q6H PRN (Reason: nausea and vomiting) acetaminophen [Tylophen] 500 mg capsule 500 mg PO Q6H PRN (Reason: fever or pain) atenolol 50 mg tablet 50 mg PO BID duloxetine 60 mg capsule,delayed release(DR/EC) 60 mg PO DAILY Eliquis 5 mg tablet 5 mg PO BID potassium chloride 20 mEq tablet extended release 40 meq PO TID Referrals / Follow Up: Patric Laughlin MD [Primary Care Provider] - Within 2 Weeks Disposition Disposition (needs filled in before D/C Order can be placed): NonSkilled NH/Intermed Care
--- NOTE | 2023-02-19 12:57 | DS.PCM_ITS ---
Providers Date of Admission: 02/15/23 Primary Care Physician: Dr. Patric Laughlin MD Consultations 02/15/23 08:27 Consult: General Surgery Routine Consulting Provider: Isaiah Landin Reason for Consult: Colonic ileus EMERGENT Consult: No MD Notified: Yes Date Notified: 02/15/23 Time Notified: 08:28 Method of Notification: Verbal Reason For Visit: ILEUS, RECENT UTI/BACTERMIA Diagnosis Discharge Diagnosis (1) Volvulus: Status: Acute Code(s): K56.2 - Volvulus Plan: ruled out appears to be an ileus v. pseudo obstruction Colonoscopy shows torturous colon. Localized mild mucosal changes in the sigmoid colon. Bx performed. EGD unremarkable. Follow up with genera surgery as outpt for pathology review and repeat colonoscopy. Advance diet (2) Hypokalemia: Status: Acute Code(s): E87.6 - Hypokalemia Plan: replace Plan Recent E. coli bacteremia * positive on the * subsequent Cx negative * DC CTX Leukocytosis: * Mild elevation, unclear significance. * Monitor. Right Tib/Fib fracture * healing on xray from 02/04 * splint in place. * NWB RLE * Follow up with orthopaedics Chronic conditions * Anemia- Secondary to chronic disorder monitoring H&H and transfuse if patient becomes symptomatic or hemoglobin falls below 7 * Hypertension- Blood pressure controlled, home medications continued with dose adjustment as needed * Class III obesity with BMI of 45.9? Complicating care weight loss advised * Paroxysmal atrial fibrillation? Patient is on digoxin and systemic anticoagulation with apixaban. Apixaban to be resumed on 02/19. * Depression with anxiety Patient is on duloxetine * Rheumatoid arthritis? By history currently not on any long-term treatment * Obstructive sleep apnea CPAP QHS * DVT prophylaxis: not indicated as pt on apixaban. Disposition: to [facility] long-term v. SNF today Medications at Discharge Home Medications acetaminophen 500 mg capsule (Tylophen) 500 mg PO Q6H PRN fever or pain 02/03/23 apixaban 5 mg tablet (Eliquis) 5 mg PO BID 02/03/23 atenolol 50 mg tablet 50 mg PO BID 02/03/23 digoxin 125 mcg (0.125 mg) tablet 125 mcg PO DAILY 02/03/23 diltiazem HCl 180 mg capsule,extended release 24 hr 180 mg PO DAILY 02/03/23 duloxetine 60 mg capsule,delayed release 60 mg PO DAILY 02/03/23 ferrous sulfate 325 mg (65 mg iron) tablet,delayed release 325 mg PO DAILY 02/03/23 furosemide 20 mg tablet (Lasix) 20 mg PO DAILY 02/03/23 gabapentin 300 mg capsule 300 mg PO Q8 02/03/23 ipratropium 0.5 mg-albuterol 3 mg (2.5 mg base)/3 mL nebulization soln 3 ml inhalation Q4H PRN shortness of breath 02/03/23 loperamide 2 mg capsule (Imodium A-D) 2 mg PO Q6H PRN loose stool 02/03/23 magnesium oxide 400 mg (241.3 mg magnesium) tablet 400 mg PO DAILY 02/03/23 ondansetron 4 mg disintegrating tablet 4 mg PO Q6H PRN nausea and vomiting 02/03/23 oxybutynin chloride 5 mg tablet,extended release 24 hr (Ditropan XL) 5 mg PO DAILY 02/03/23 potassium chloride 20 mEq tablet,extended release 40 meq PO TID 02/03/23 Hospital Course Operations None Procedures Colonoscopy and EGD Summary of Care Provided Hospital Course: With abdominal pain and was concerning for a volvulus. EGD and colonoscopy were unremarkable though patient did have a tortuous colon. [place] to be a ileus. Patient has been advanced on diet and is doing well. Weight / BMI Weight Weight: 120.429 kg Body Mass Index (BMI) 48.5 ABG / Lab / Microbiology Data 02/19/23 06:18 02/19/23 06:18 Laboratory: Laboratory Results - last 24 hr 02/19/23 06:18: WBC 11.5 H, RBC 3.46 L, Hgb 8.8 L, Hct 30.0 L, MCV 86.7, MCH 25.4 L, MCHC 29.3 L, RDW Std Deviation 59.5 H, RDW Coeff of Aris 19.1 H, Plt Count 483 H, MPV 9.5, Immature Gran % (Auto) 1.000 H, Neut % (Auto) 80.5 H, Lymph % (Auto) 12.5 L, [place] % (Auto) 5.7, Eos % (Auto) 0.0, Baso % (Auto) 0.3, Absolute Neuts (auto) 9.2 H, Absolute Lymphs (auto) 1.43, Nucleated RBC % 0, Sodium 142, Potassium 3.1 L, Chloride 112 H, Carbon Dioxide 27.0, Anion Gap 3 L, BUN 2 L, Creatinine 0.37 L, Estim Creat Clear Calc 40.81, Est GFR (MDRD) Af Amer 219, Est GFR (MDRD) Non-Af 181, BUN/Creatinine Ratio 5.3 L, Glucose 93, Calcium 7.8 L Microbiology: Microbiology 02/13/23 15:00 Blood Culture (Wb) - Anticubital Left Blood Culture - Final No growth in 5 days. 02/13/23 14:15 Blood Culture (Wb) - Anticubital Left Blood Culture - Final No growth in 5 days. 02/18/23 10:31 Stool C. difficile DNA Amplification - Final 02/14/23 03:45 Urine Catheter - Catheter Urine Culture - Final Culture exhibits no growth. 02/14/23 19:47 Stool Enteric Bacteriology - Final 02/14/23 20:57 Stool C. difficile DNA Amplification - Final Meaningful Use Info Meaningful Use Diagnoses (Choose all that apply): None applicable Discharge Plan Admission Admit Date/Time: 02/15/23 11:26 Primary Reason for Your Visit: ileus Attending Provider: Shane Huggins Primary Care Provider: Patric Laughlin Consulting Providers: Emma Villalpando; Isaiah Landin; Isacc Kendall Discharge Orders/Prescriptions Prescriptions: Continued ipratropium-albuterol 0.5 mg-3 mg(2.5 mg base)/3 mL solution for nebulization 3 ml inhalation Q4H PRN (Reason: shortness of breath) loperamide [Imodium A-D] 2 mg capsule 2 mg PO Q6H PRN (Reason: loose stool) diltiazem HCl 180 mg capsule,extended release 24hr 180 mg PO DAILY Patient Comments: at bedtime magnesium oxide 400 mg (241.3 mg magnesium) tablet 400 mg PO DAILY oxybutynin chloride [Ditropan XL] 5 mg tablet extended release 24hr 5 mg PO DAILY Patient Comments: at bedtime gabapentin 300 mg capsule 300 mg PO Q8 digoxin 125 mcg (0.125 mg) tablet 125 mcg PO DAILY furosemide [Lasix] 20 mg tablet 20 mg PO DAILY ferrous sulfate 325 mg (65 mg iron) tablet,delayed release (DR/EC) 325 mg PO DAILY Patient Comments: at bedtime ondansetron 4 mg tablet,disintegrating 4 mg PO Q6H PRN (Reason: nausea and vomiting) acetaminophen [Tylophen] 500 mg capsule 500 mg PO Q6H PRN (Reason: fever or pain) atenolol 50 mg tablet 50 mg PO BID duloxetine 60 mg capsule,delayed release(DR/EC) 60 mg PO DAILY Eliquis 5 mg tablet 5 mg PO BID potassium chloride 20 mEq tablet extended release 40 meq PO TID Referrals / Follow Up: Patric Laughlin MD [Primary Care Provider] - Within 2 Weeks Disposition Disposition (needs filled in before D/C Order can be placed): NonSkilled NH/Intermed Care Charges/Coding Visit Charges Inpatient E&M: 14388 Disch Hosp
--- NOTE | 2023-02-19 13:18 | CASEMGMT ---
Social Work SW spoke with [facility] and pt can return to [facility] today under intermediate level of care. [facility] will assess for skilled needs once she returns to them. Updated clinicals sent. Physician notified and pt is ready for discharge today. Plan: [facility], intermediate level of care KATHYA Laird
--- NOTE | 2023-02-19 14:05 | PHA.DC_ITS ---
Pharmacy [facility] Reconciliation Pharmacy Service has performed discharge medication reconciliation for this patient. The patient's discharge medication list was reviewed for discrepancies and discrepancies were resolved. Medications at Discharge Home Medications acetaminophen 500 mg capsule (Tylophen) 500 mg PO Q6H PRN fever or pain 02/03/23 apixaban 5 mg tablet (Eliquis) 5 mg PO BID 02/03/23 atenolol 50 mg tablet 50 mg PO BID 02/03/23 digoxin 125 mcg (0.125 mg) tablet 125 mcg PO DAILY 02/03/23 diltiazem HCl 180 mg capsule,extended release 24 hr 180 mg PO DAILY 02/03/23 duloxetine 60 mg capsule,delayed release 60 mg PO DAILY 02/03/23 ferrous sulfate 325 mg (65 mg iron) tablet,delayed release 325 mg PO DAILY 02/03/23 furosemide 20 mg tablet (Lasix) 20 mg PO DAILY 02/03/23 gabapentin 300 mg capsule 300 mg PO Q8 02/03/23 ipratropium 0.5 mg-albuterol 3 mg (2.5 mg base)/3 mL nebulization soln 3 ml inhalation Q4H PRN shortness of breath 02/03/23 loperamide 2 mg capsule (Imodium A-D) 2 mg PO Q6H PRN loose stool 02/03/23 magnesium oxide 400 mg (241.3 mg magnesium) tablet 400 mg PO DAILY 02/03/23 ondansetron 4 mg disintegrating tablet 4 mg PO Q6H PRN nausea and vomiting 02/03/23 oxybutynin chloride 5 mg tablet,extended release 24 hr (Ditropan XL) 5 mg PO DAILY 02/03/23 potassium chloride 20 mEq tablet,extended release 40 meq PO TID 02/03/23
--- NOTE | 2023-02-19 14:33 | CASEMGMT ---
Discharge Planning Discharge orders, signed med list, covid results, and transport time sent to [facility] via [facility]. [facility] will transport patient by cot at 3:30p. Nursing, SW, and patient updated. Makayla Rice, Discharge Planning Asst.
--- NOTE | 2023-02-19 14:36 | CASEMGMT ---
Social Work SW placed call to pt daughter Kritsen and updated on discharge back to [place] today. Kristen agreeable. KATYHA Laird
[2023-02-19 14:45] VITALS: BP 132/60; PULSE 56; RESP 18; TEMP 36.8; O2SAT 100
== END 2023-02-19 16:00 | DRG 389 ==
LOC: ED 18:32 → MS3 18:53
PROVIDERS: Anesthesiology; Internal Medicine; Physician Assistant; Surgery; Admitting Provider Family Medicine; Emergency Provider Emergency Medicine; PCP Family Medicine
PROC: 0DJD8ZZ Inspection of Lower Intestinal Tract, Via Natural or Artificial Opening Endoscopic (ICD-10-PCS; CPT 45378; principal; 2023-02-17 11:25)
DX: K56.7 Ileus, unspecified (principal); I85.00 Esophageal varices without bleeding; Q43.8 Other specified congenital malformations of intestine; Z68.42 Body mass index [BMI] 45.0-49.9, adult; E11.9 Type 2 diabetes mellitus without complications; D50.9 Iron deficiency anemia, unspecified; D72.829 Elevated white blood cell count, unspecified; E66.01 Morbid (severe) obesity due to excess calories; I48.0 Paroxysmal atrial fibrillation; M06.9 Rheumatoid arthritis, unspecified; I10 Essential (primary) hypertension; F32.A Depression, unspecified; E78.5 Hyperlipidemia, unspecified; F41.9 Anxiety disorder, unspecified; K52.9 Noninfective gastroenteritis and colitis, unspecified; G47.33 Obstructive sleep apnea (adult) (pediatric); K44.9 Diaphragmatic hernia without obstruction or gangrene; E87.6 Hypokalemia; K21.9 Gastro-esophageal reflux disease without esophagitis; K59.89 Other specified functional intestinal disorders; Z20.822 Contact with and (suspected) exposure to COVID-19; S82.201D Unspecified fracture of shaft of right tibia, subsequent encounter for closed fracture with routine healing; Z66 Do not resuscitate; Z87.891 Personal history of nicotine dependence; Z79.01 Long term (current) use of anticoagulants; Z79.899 Other long term (current) drug therapy
CPT/HCPCS: 36415; 74019; 74176; 74177; 80048; 80053; 80162; 81001; 83605; 83690; 83735; 84100; 84145; 85025; 87040; 87086; 87177; 87209; 87426; 87493; 87506; 88305; 88313; 88342; 93005; 94640; 94668; 97161; 97162; 97166; 99252; 99285; J7030; J7040; J7050; J7120; Q9967; A4216; G0463

== ENCOUNTER → 2023-02-13 | Outpatient (REF) | payer MEDICARE, MEDICAID, SELFPAY ==
[2023-02-13 09:52] LABS: Absolute Lymphocyte Count 1.18 X10^3/uL (0.83-4.51); Absolute Neutrophil Count 11.8 X10^3/uL (2.0-7.7); Basophil# 0.04 X10^3/uL; Basophil% 0.3 % (0-1); Hematocrit 31.2 % (37-47); Lymphocyte # 1.18 X10^3/ul (0.83-4.51); Lymphocyte % 8.3 % (19-41); Mean Corp Hgb Conc 28.8 g/dL (32-36); Mean Corpuscular Hgb 25.1 pg (27.0-32.0); Mean Corpuscular Volume 86.9 fL (81-99); Monocyte# 0.77 X10^3/uL; Monocyte% 5.4 % (0-10); NRBC Flagged by Analyzer 0 % (0-5); Neutrophil # 11.81 X10^3/uL (2.7-7.7); Neutrophil % 83.1 % (47-70); Platelet Count 600 K/mm3 (150-450); RBC Distribution Width CV 18.4 % (11.6-14.6); RBC Distribution Width SD 58.4 fl (35.1-43.9); Red Blood Count 3.59 M/mm3 (4.2-5.4); White Blood Count 14.2 K/mm3 (4.4-11.0)
[2023-02-13 10:28] LABS: Anion Gap 6 (5-15); BUN 8 mg/dL (7-18); BUN/Creat Ratio 19.4 RATIO (10-20); Calcium,Total 9.3 mg/dL (8.5-10.1); Chloride 106 mmol/L (98-107); Creatinine, Serum 0.41 mg/dL (0.55-1.02); EST Glomerular Filtration Rate 162 mL/min (>60); Est Glom Filt Rate - Afr Amer 195 mL/min (>60); Glucose 92 mg/dL (74-106); Potassium 3.6 mmol/L (3.5-5.1); Sodium Level 136 mmol/L (136-145)
== END ==
LOC: OLS.WHLEAS 05:00
PROVIDERS: PCP Family Medicine; Visit Provider Internal Medicine
DX: A41.89 Other specified sepsis (principal)
CPT/HCPCS: 36415; 80048; 85025

== ENCOUNTER → 2023-02-20 | Outpatient (REF) | payer MEDICARE, MEDICAID, SELFPAY ==
[2023-02-20 08:02] LABS: Absolute Lymphocyte Count 1.72 X10^3/uL (0.83-4.51); Absolute Neutrophil Count 8.2 X10^3/uL (2.0-7.7); Basophil# 0.04 X10^3/uL; Basophil% 0.4 % (0-1); Hematocrit 31.3 % (37-47); Hemoglobin 8.9 g/dL (12.0-15.0); Lymphocyte # 1.72 X10^3/ul (0.83-4.51); Mean Corp Hgb Conc 28.4 g/dL (32-36); Mean Corpuscular Hgb 24.6 pg (27.0-32.0); Mean Corpuscular Volume 86.5 fL (81-99); Mean Platelet Vol. 10.4 fl (6.2-12.0); Monocyte# 0.69 X10^3/uL; Monocyte% 6.4 % (0-10); NRBC Flagged by Analyzer 0 % (0-5); Neutrophil # 8.18 X10^3/uL (2.7-7.7); Neutrophil % 76.3 % (47-70); Platelet Count 529 K/mm3 (150-450); RBC Distribution Width CV 18.9 % (11.6-14.6); RBC Distribution Width SD 59.9 fl (35.1-43.9); Red Blood Count 3.62 M/mm3 (4.2-5.4); White Blood Count 10.7 K/mm3 (4.4-11.0)
== END ==
LOC: OLS.WHLEAS 05:00
PROVIDERS: PCP Family Medicine; Visit Provider Internal Medicine
DX: E87.1 Hypo-osmolality and hyponatremia (principal)
CPT/HCPCS: 36415; 85025

== ENCOUNTER → 2023-02-27 | Outpatient (REF) | payer MEDICARE, MEDICAID, SELFPAY ==
[2023-02-27 09:02] LABS: Absolute Lymphocyte Count 1.52 X10^3/uL (0.83-4.51); Basophil# 0.03 X10^3/uL; Basophil% 0.4 % (0-1); Hematocrit 31.7 % (37-47); Hemoglobin 9.2 g/dL (12.0-15.0); Lymphocyte # 1.52 X10^3/ul (0.83-4.51); Lymphocyte % 18.2 % (19-41); Mean Corpuscular Hgb 24.8 pg (27.0-32.0); Mean Corpuscular Volume 85.4 fL (81-99); Monocyte# 0.65 X10^3/uL; Monocyte% 7.8 % (0-10); NRBC Flagged by Analyzer 0 % (0-5); Neutrophil # 6.04 X10^3/uL (2.7-7.7); Neutrophil % 72.5 % (47-70); Platelet Count 513 K/mm3 (150-450); RBC Distribution Width SD 59.7 fl (35.1-43.9); Red Blood Count 3.71 M/mm3 (4.2-5.4); White Blood Count 8.3 K/mm3 (4.4-11.0)
[2023-02-27 09:25] LABS: Anion Gap 7 (5-15); BUN 7 mg/dL (7-18); BUN/Creat Ratio 13.7 RATIO (10-20); Calcium,Total 9.2 mg/dL (8.5-10.1); Chloride 102 mmol/L (98-107); Creatinine, Serum 0.51 mg/dL (0.55-1.02); EST Glomerular Filtration Rate 126 mL/min (>60); Est Glom Filt Rate - Afr Amer 153 mL/min (>60); Glucose 94 mg/dL (74-106); Potassium 4.2 mmol/L (3.5-5.1); Sodium Level 137 mmol/L (136-145)
== END ==
LOC: OLS.WHLEAS 05:00
PROVIDERS: PCP Family Medicine; Visit Provider Internal Medicine
DX: A41.89 Other specified sepsis (principal)
CPT/HCPCS: 36415; 80048; 85025

== ENCOUNTER → 2023-03-06 | Outpatient (REF) | payer MEDICARE, MEDICAID, SELFPAY ==
[2023-03-06 07:39] LABS: Absolute Lymphocyte Count 1.77 X10^3/uL (0.83-4.51); Basophil# 0.04 X10^3/uL; Basophil% 0.4 % (0-1); Hematocrit 34.7 % (37-47); Hemoglobin 9.9 g/dL (12.0-15.0); Lymphocyte # 1.77 X10^3/ul (0.83-4.51); Lymphocyte % 19.1 % (19-41); Mean Corp Hgb Conc 28.5 g/dL (32-36); Mean Corpuscular Hgb 24.6 pg (27.0-32.0); Mean Corpuscular Volume 86.1 fL (81-99); Monocyte# 0.42 X10^3/uL; Monocyte% 4.5 % (0-10); NRBC Flagged by Analyzer 0 % (0-5); Neutrophil # 6.99 X10^3/uL (2.7-7.7); Neutrophil % 75.4 % (47-70); Platelet Count 523 K/mm3 (150-450); RBC Distribution Width CV 19.8 % (11.6-14.6); RBC Distribution Width SD 61.3 fl (35.1-43.9); Red Blood Count 4.03 M/mm3 (4.2-5.4); White Blood Count 9.3 K/mm3 (4.4-11.0)
[2023-03-06 07:55] LABS: Anion Gap 4 (5-15); BUN 9 mg/dL (7-18); BUN/Creat Ratio 18.5 RATIO (10-20); Calcium,Total 9.2 mg/dL (8.5-10.1); Chloride 107 mmol/L (98-107); Creatinine, Serum 0.49 mg/dL (0.55-1.02); EST Glomerular Filtration Rate 134 mL/min (>60); Est Glom Filt Rate - Afr Amer 162 mL/min (>60); Glucose 91 mg/dL (74-106); Potassium 4.3 mmol/L (3.5-5.1); Sodium Level 139 mmol/L (136-145)
== END ==
LOC: OLS.WHLEAS 05:00
PROVIDERS: PCP Family Medicine; Visit Provider Internal Medicine
DX: A41.89 Other specified sepsis (principal); S82.401D Unspecified fracture of shaft of right fibula, subsequent encounter for closed fracture with routine healing; S82.201D Unspecified fracture of shaft of right tibia, subsequent encounter for closed fracture with routine healing
CPT/HCPCS: 36415; 80048; 85025

== ENCOUNTER → 2023-03-13 | Outpatient (REF) | payer MEDICARE, MEDICAID, SELFPAY ==
[2023-03-13 09:53] LABS: Absolute Lymphocyte Count 1.58 X10^3/uL (0.83-4.51); Absolute Neutrophil Count 6.6 X10^3/uL (2.0-7.7); Basophil# 0.04 X10^3/uL; Basophil% 0.5 % (0-1); Hematocrit 35.1 % (37-47); Lymphocyte # 1.58 X10^3/ul (0.83-4.51); Lymphocyte % 18.1 % (19-41); Mean Corp Hgb Conc 28.5 g/dL (32-36); Mean Corpuscular Hgb 24.8 pg (27.0-32.0); Mean Corpuscular Volume 86.9 fL (81-99); Mean Platelet Vol. 10.3 fl (6.2-12.0); Monocyte# 0.48 X10^3/uL; Monocyte% 5.5 % (0-10); NRBC Flagged by Analyzer 0 % (0-5); Neutrophil # 6.56 X10^3/uL (2.7-7.7); Neutrophil % 75.1 % (47-70); POSITIVE MORPHOLOGY YES; Platelet Count 461 K/mm3 (150-450); RBC Distribution Width CV 20.8 % (11.6-14.6); Red Blood Count 4.04 M/mm3 (4.2-5.4); White Blood Count 8.7 K/mm3 (4.4-11.0)
[2023-03-13 09:54] LABS: Differential Indicated SCAN CRITERIA MET
[2023-03-13 10:28] LABS: Anion Gap 5 (5-15); BUN 9 mg/dL (7-18); BUN/Creat Ratio 19.7 RATIO (10-20); Calcium,Total 9.1 mg/dL (8.5-10.1); Chloride 108 mmol/L (98-107); Creatinine, Serum 0.46 mg/dL (0.55-1.02); EST Glomerular Filtration Rate 143 mL/min (>60); Est Glom Filt Rate - Afr Amer 173 mL/min (>60); Ferritin 212 ng/mL (8-252); Glucose 91 mg/dL (74-106); Iron 27 ug/dL (50-170); Potassium 4.1 mmol/L (3.5-5.1); Sodium Level 139 mmol/L (136-145)
[2023-03-13 10:30] LABS: Anisocytosis 1+
== END ==
LOC: OLS.WHLEAS 05:00
PROVIDERS: PCP Family Medicine; Visit Provider Internal Medicine
DX: A41.89 Other specified sepsis (principal); S82.401D Unspecified fracture of shaft of right fibula, subsequent encounter for closed fracture with routine healing; D63.8 Anemia in other chronic diseases classified elsewhere
CPT/HCPCS: 36415; 80048; 82728; 83540; 83550; 85025

== ENCOUNTER → 2023-05-05 | Outpatient (REF) | payer MEDICARE, MEDICAID, SELFPAY ==
[2023-05-05 09:22] LABS: Iron 42 ug/dL (50-170)
== END ==
LOC: OLS.WHLEAS 05:00
PROVIDERS: PCP Family Medicine; Visit Provider Internal Medicine
DX: S82.401D Unspecified fracture of shaft of right fibula, subsequent encounter for closed fracture with routine healing (principal); D63.8 Anemia in other chronic diseases classified elsewhere
CPT/HCPCS: 36415; 83540

== ENCOUNTER → 2023-05-15 | Outpatient (REF) | payer MEDICARE, MEDICAID, SELFPAY ==
[2023-05-15 07:52] LABS: Absolute Lymphocyte Count 1.42 X10^3/uL (0.83-4.51); Absolute Neutrophil Count 6.3 X10^3/uL (2.0-7.7); Basophil# 0.05 X10^3/uL; Basophil% 0.6 % (0-1); Hematocrit 37.3 % (37-47); Lymphocyte # 1.42 X10^3/ul (0.83-4.51); Lymphocyte % 16.8 % (19-41); Mean Corp Hgb Conc 29.5 g/dL (32-36); Mean Corpuscular Hgb 26.1 pg (27.0-32.0); Mean Corpuscular Volume 88.4 fL (81-99); Mean Platelet Vol. 10.6 fl (6.2-12.0); Monocyte% 7.1 % (0-10); NRBC Flagged by Analyzer 0 % (0-5); Neutrophil # 6.34 X10^3/uL (2.7-7.7); Neutrophil % 74.9 % (47-70); POSITIVE MORPHOLOGY YES; Platelet Count 390 K/mm3 (150-450); RBC Distribution Width SD 65.3 fl (35.1-43.9); Red Blood Count 4.22 M/mm3 (4.2-5.4); White Blood Count 8.5 K/mm3 (4.4-11.0)
[2023-05-15 08:00] LABS: Differential Indicated SCAN CRITERIA MET
[2023-05-15 08:06] LABS: Anion Gap 5 (5-15); BUN 13 mg/dL (7-18); BUN/Creat Ratio 23.8 RATIO (10-20); Chloride 109 mmol/L (98-107); Creatinine, Serum 0.55 mg/dL (0.55-1.02); EST Glomerular Filtration Rate 117 mL/min (>60); Est Glom Filt Rate - Afr Amer 141 mL/min (>60); Glucose 90 mg/dL (74-106); Potassium 4.2 mmol/L (3.5-5.1); Sodium Level 142 mmol/L (136-145)
[2023-05-15 08:43] LABS: Anisocytosis 2+; Differential Comment SCANNED; Macrocytosis 1+; Microcytosis 1+
== END ==
LOC: OLS.WHLEAS 05:00
PROVIDERS: PCP Family Medicine; Visit Provider Internal Medicine
DX: E11.40 Type 2 diabetes mellitus with diabetic neuropathy, unspecified (principal)
CPT/HCPCS: 36415; 80048; 85025

== ENCOUNTER → 2023-06-12 | Outpatient (REF) | payer MEDICARE, MEDICAID, SELFPAY ==
[2023-06-12 08:35] LABS: Absolute Neutrophil Count 5.6 X10^3/uL (2.0-7.7); Basophil# 0.04 X10^3/uL; Basophil% 0.5 % (0-1); Hematocrit 36.8 % (37-47); Hemoglobin 10.8 g/dL (12.0-15.0); Lymphocyte % 15.9 % (19-41); Mean Corp Hgb Conc 29.3 g/dL (32-36); Mean Corpuscular Hgb 26.3 pg (27.0-32.0); Mean Corpuscular Volume 89.8 fL (81-99); Mean Platelet Vol. 10.3 fl (6.2-12.0); Monocyte# 0.64 X10^3/uL; Monocyte% 8.5 % (0-10); NRBC Flagged by Analyzer 0 % (0-5); Neutrophil # 5.64 X10^3/uL (2.7-7.7); Neutrophil % 74.4 % (47-70); Platelet Count 346 K/mm3 (150-450); RBC Distribution Width SD 55.8 fl (35.1-43.9); White Blood Count 7.6 K/mm3 (4.4-11.0)
[2023-06-12 09:04] LABS: AST(SGOT) 16 U/L (15-37); Alanine Aminotransfer ALT/SGPT 15 U/L (13-56); Albumin, Serum 2.7 g/dL (3.2-5.0); Alkaline Phosphatase 129 U/L (45-117); Anion Gap 4 (5-15); BUN 20 mg/dL (7-18); BUN/Creat Ratio 33.2 RATIO (10-20); Bilirubin, Direct 0.09 mg/dL (0.00-0.30); Calcium,Total 9.6 mg/dL (8.5-10.1); Chloride 108 mmol/L (98-107); EST Glomerular Filtration Rate 104 mL/min (>60); Est Glom Filt Rate - Afr Amer 126 mL/min (>60); Globulin 4.5 g/dL (2.2-4.2); Glucose 91 mg/dL (74-106); Potassium 4.2 mmol/L (3.5-5.1); Protein, Total 7.2 g/dL (6.4-8.2); Sodium Level 140 mmol/L (136-145)
[2023-06-12 09:15] LABS: Digoxin Level 0.79 ng/mL (0.80-2.00)
== END ==
LOC: OLS.WHLEAS 05:00
PROVIDERS: PCP Family Medicine; Visit Provider Internal Medicine
DX: E11.40 Type 2 diabetes mellitus with diabetic neuropathy, unspecified (principal); S82.401D Unspecified fracture of shaft of right fibula, subsequent encounter for closed fracture with routine healing; S82.201D Unspecified fracture of shaft of right tibia, subsequent encounter for closed fracture with routine healing; Z79.899 Other long term (current) drug therapy
CPT/HCPCS: 36415; 80048; 80076; 80162; 85025

== ENCOUNTER → 2023-07-10 | Outpatient (REF) | payer MEDICARE, MEDICAID, SELFPAY ==
[2023-07-10 08:29] LABS: Absolute Lymphocyte Count 1.42 X10^3/uL (0.83-4.51); Absolute Neutrophil Count 6.7 X10^3/uL (2.0-7.7); Basophil# 0.04 X10^3/uL; Basophil% 0.5 % (0-1); Hematocrit 39.8 % (37-47); Hemoglobin 12.1 g/dL (12.0-15.0); Lymphocyte # 1.42 X10^3/ul (0.83-4.51); Mean Corp Hgb Conc 30.4 g/dL (32-36); Mean Corpuscular Hgb 26.9 pg (27.0-32.0); Mean Corpuscular Volume 88.6 fL (81-99); Mean Platelet Vol. 10.8 fl (6.2-12.0); Monocyte# 0.68 X10^3/uL; Monocyte% 7.7 % (0-10); NRBC Flagged by Analyzer 0 % (0-5); Neutrophil # 6.69 X10^3/uL (2.7-7.7); Neutrophil % 75.3 % (47-70); Platelet Count 335 K/mm3 (150-450); RBC Distribution Width CV 16.2 % (11.6-14.6); RBC Distribution Width SD 53.1 fl (35.1-43.9); Red Blood Count 4.49 M/mm3 (4.2-5.4); White Blood Count 8.9 K/mm3 (4.4-11.0)
[2023-07-10 08:42] LABS: Anion Gap 5 (5-15); BUN 19 mg/dL (7-18); BUN/Creat Ratio 30.1 RATIO (10-20); Calcium,Total 9.8 mg/dL (8.5-10.1); Chloride 109 mmol/L (98-107); Creatinine, Serum 0.63 mg/dL (0.55-1.02); EST Glomerular Filtration Rate 99 mL/min (>60); Est Glom Filt Rate - Afr Amer 119 mL/min (>60); Glucose 97 mg/dL (74-106); Potassium 4.2 mmol/L (3.5-5.1); Sodium Level 142 mmol/L (136-145)
== END ==
LOC: OLS.WHLEAS 04:00
PROVIDERS: PCP Family Medicine; Referring Provider Internal Medicine; Visit Provider Internal Medicine
DX: E11.40 Type 2 diabetes mellitus with diabetic neuropathy, unspecified (principal)
CPT/HCPCS: 36415; 80048; 85025

== ENCOUNTER → 2023-08-04 | Outpatient (REF) | payer MEDICARE, MEDICAID, SELFPAY | LOC: OLS.WHLEAS 17:54 | PROVIDERS: PCP Family Medicine; Visit Provider Nurse Practitioner Adult Health | DX: U07.1 COVID-19 (principal) | CPT/HCPCS: 87635 ==

== ENCOUNTER → 2023-08-05 | Outpatient (REF) | payer MEDICARE, MEDICAID, SELFPAY ==
[2023-08-05 11:30] LABS: Color, Urine Yellow (Yellow); Glucose, Dipstick Normal (Normal); Ketone-Dipstick Negative (Negative); Leukocyte Esterase-Dipstick 500 /ul (Negative); Nitrite-Dipstick Negative (Negative); Occult Blood-Urine 10 /ul (Negative); Protein-Dipstick Negative (Negative); Urine Bilirubin Dipstick Negative (Negative); Urine Clarity Clear (Clear); Urine Urobilinogen Normal (Normal); Urine pH 6.5 (5.0 - 8.0)
== END ==
LOC: OLS.WHLEAS 11:06
PROVIDERS: PCP Family Medicine; Referring Provider Nurse Practitioner Adult Health; Visit Provider Nurse Practitioner Adult Health
DX: N32.81 Overactive bladder (principal)
CPT/HCPCS: 81002; 87077; 87086; 87088; 87186

== ENCOUNTER → 2023-08-14 | Outpatient (REF) | payer MEDICARE, MEDICAID, SELFPAY ==
[2023-08-14 08:48] LABS: Absolute Lymphocyte Count 1.43 X10^3/uL (0.83-4.51); Absolute Neutrophil Count 6.9 X10^3/uL (2.0-7.7); Basophil# 0.05 X10^3/uL; Basophil% 0.6 % (0-1); Hematocrit 39.3 % (37-47); Hemoglobin 11.9 g/dL (12.0-15.0); Lymphocyte # 1.43 X10^3/ul (0.83-4.51); Lymphocyte % 15.9 % (19-41); Mean Corp Hgb Conc 30.3 g/dL (32-36); Mean Corpuscular Hgb 26.8 pg (27.0-32.0); Mean Corpuscular Volume 88.5 fL (81-99); Mean Platelet Vol. 10.5 fl (6.2-12.0); Monocyte% 6.7 % (0-10); NRBC Flagged by Analyzer 0 % (0-5); Neutrophil # 6.89 X10^3/uL (2.7-7.7); Neutrophil % 76.4 % (47-70); Platelet Count 307 K/mm3 (150-450); RBC Distribution Width CV 16.3 % (11.6-14.6); RBC Distribution Width SD 53.2 fl (35.1-43.9); Red Blood Count 4.44 M/mm3 (4.2-5.4)
[2023-08-14 08:56] LABS: Anion Gap 3 (5-15); BUN 20 mg/dL (7-18); BUN/Creat Ratio 34.7 RATIO (10-20); Calcium,Total 9.1 mg/dL (8.5-10.1); Chloride 107 mmol/L (98-107); Creatinine, Serum 0.58 mg/dL (0.55-1.02); EST Glomerular Filtration Rate 109 mL/min (>60); Est Glom Filt Rate - Afr Amer 132 mL/min (>60); Glucose 87 mg/dL (74-106); Potassium 4.3 mmol/L (3.5-5.1); Sodium Level 139 mmol/L (136-145)
== END ==
LOC: OLS.WHLEAS 05:00
PROVIDERS: PCP Family Medicine; Visit Provider Internal Medicine
DX: E11.40 Type 2 diabetes mellitus with diabetic neuropathy, unspecified (principal)
CPT/HCPCS: 36415; 80048; 85025

== ENCOUNTER → 2023-09-11 | Outpatient (REF) | payer MEDICARE, MEDICAID, SELFPAY ==
[2023-09-11 08:20] LABS: AST(SGOT) 13 U/L (15-37); Alanine Aminotransfer ALT/SGPT 32 U/L (13-56); Albumin, Serum 2.7 g/dL (3.2-5.0); Alkaline Phosphatase 137 U/L (45-117); Anion Gap 2 (5-15); BUN 26 mg/dL (7-18); BUN/Creat Ratio 41.9 RATIO (10-20); Bilirubin, Direct < 0.05 mg/dL (0.00-0.30); Calcium,Total 8.8 mg/dL (8.5-10.1); Chloride 106 mmol/L (98-107); Creatinine, Serum 0.62 mg/dL (0.55-1.02); Digoxin Level 0.66 ng/mL (0.80-2.00); EST Glomerular Filtration Rate 101 mL/min (>60); Est Glom Filt Rate - Afr Amer 122 mL/min (>60); Globulin 3.7 g/dL (2.2-4.2); Glucose 82 mg/dL (74-106); Potassium 4.4 mmol/L (3.5-5.1); Protein, Total 6.4 g/dL (6.4-8.2); Sodium Level 138 mmol/L (136-145)
[2023-09-11 08:25] LABS: Absolute Neutrophil Count 6.4 X10^3/uL (2.0-7.7); Basophil# 0.07 X10^3/uL; Basophil% 0.8 % (0-1); Hematocrit 40.2 % (37-47); Mean Corp Hgb Conc 29.9 g/dL (32-36); Mean Corpuscular Hgb 26.8 pg (27.0-32.0); Mean Corpuscular Volume 89.9 fL (81-99); Mean Platelet Vol. 10.3 fl (6.2-12.0); Monocyte# 0.58 X10^3/uL; Monocyte% 6.4 % (0-10); NRBC Flagged by Analyzer 0 % (0-5); Neutrophil % 71.1 % (47-70); Platelet Count 301 K/mm3 (150-450); RBC Distribution Width CV 16.9 % (11.6-14.6); RBC Distribution Width SD 55.3 fl (35.1-43.9); Red Blood Count 4.47 M/mm3 (4.2-5.4)
== END ==
LOC: OLS.WHLEAS 05:00
PROVIDERS: PCP Family Medicine; Visit Provider Internal Medicine
DX: I10 Essential (primary) hypertension (principal); E11.40 Type 2 diabetes mellitus with diabetic neuropathy, unspecified; Z79.899 Other long term (current) drug therapy
CPT/HCPCS: 36415; 80048; 80076; 80162; 85025

== ENCOUNTER → 2023-10-09 | Outpatient (REF) | payer MEDICARE, MEDICAID, SELFPAY ==
[2023-10-09 08:32] LABS: Absolute Lymphocyte Count 1.47 X10^3/uL (0.83-4.51); Absolute Neutrophil Count 5.5 X10^3/uL (2.0-7.7); Basophil# 0.05 X10^3/uL; Basophil% 0.6 % (0-1); Hematocrit 40.6 % (37-47); Hemoglobin 12.2 g/dL (12.0-15.0); Lymphocyte # 1.47 X10^3/ul (0.83-4.51); Lymphocyte % 19.1 % (19-41); Mean Corpuscular Hgb 27.7 pg (27.0-32.0); Mean Corpuscular Volume 92.1 fL (81-99); Mean Platelet Vol. 10.1 fl (6.2-12.0); Monocyte# 0.64 X10^3/uL; Monocyte% 8.3 % (0-10); NRBC Flagged by Analyzer 0 % (0-5); Neutrophil # 5.48 X10^3/uL (2.7-7.7); Neutrophil % 71.2 % (47-70); Platelet Count 299 K/mm3 (150-450); RBC Distribution Width CV 16.4 % (11.6-14.6); RBC Distribution Width SD 56.5 fl (35.1-43.9); Red Blood Count 4.41 M/mm3 (4.2-5.4); White Blood Count 7.7 K/mm3 (4.4-11.0)
[2023-10-09 08:39] LABS: Anion Gap 2 (5-15); BUN 16 mg/dL (7-18); BUN/Creat Ratio 24.6 RATIO (10-20); Calcium,Total 9.3 mg/dL (8.5-10.1); Chloride 108 mmol/L (98-107); Creatinine, Serum 0.65 mg/dL (0.55-1.02); EST Glomerular Filtration Rate 95 mL/min (>60); Est Glom Filt Rate - Afr Amer 115 mL/min (>60); Glucose 87 mg/dL (74-106); Potassium 4.4 mmol/L (3.5-5.1); Sodium Level 138 mmol/L (136-145)
== END ==
LOC: OLS.WHLEAS 05:00
PROVIDERS: PCP Family Medicine; Visit Provider Internal Medicine
DX: E11.40 Type 2 diabetes mellitus with diabetic neuropathy, unspecified (principal)
CPT/HCPCS: 36415; 80048; 85025

== ENCOUNTER → 2023-10-29 | Outpatient (REF) | payer MEDICARE, MEDICAID, SELFPAY ==
[2023-10-30 09:12] LABS: Color, Urine Yellow (Yellow); Glucose, Dipstick Normal (Normal); Ketone-Dipstick Negative (Negative); Leukocyte Esterase-Dipstick 500 /ul (Negative); Nitrite-Dipstick Positive (Negative); Occult Blood-Urine 50 /ul (Negative); Protein-Dipstick 30 mg/dl (Negative); Urine Bilirubin Dipstick Negative (Negative); Urine Clarity Cloudy (Clear); Urine Urobilinogen Normal (Normal)
== END ==
LOC: OLS.WHLEAS 12:00
PROVIDERS: PCP Family Medicine; Visit Provider Nurse Practitioner Adult Health
DX: N39.0 Urinary tract infection, site not specified (principal)
CPT/HCPCS: 81002; 87077; 87086; 87088; 87186

== ENCOUNTER → 2023-11-13 | Outpatient (REF) | payer MEDICARE, MEDICAID, SELFPAY ==
[2023-11-13 08:49] LABS: Absolute Lymphocyte Count 1.48 X10^3/uL (0.83-4.51); Absolute Neutrophil Count 5.6 X10^3/uL (2.0-7.7); Basophil# 0.03 X10^3/uL; Basophil% 0.4 % (0-1); Hematocrit 43.6 % (37-47); Lymphocyte # 1.48 X10^3/ul (0.83-4.51); Mean Corp Hgb Conc 29.8 g/dL (32-36); Mean Corpuscular Hgb 27.9 pg (27.0-32.0); Mean Corpuscular Volume 93.6 fL (81-99); Mean Platelet Vol. 10.6 fl (6.2-12.0); Monocyte# 0.62 X10^3/uL; NRBC Flagged by Analyzer 0 % (0-5); Neutrophil # 5.59 X10^3/uL (2.7-7.7); Platelet Count 254 K/mm3 (150-450); RBC Distribution Width CV 15.7 % (11.6-14.6); RBC Distribution Width SD 53.8 fl (35.1-43.9); Red Blood Count 4.66 M/mm3 (4.2-5.4); White Blood Count 7.8 K/mm3 (4.4-11.0)
[2023-11-13 10:40] LABS: Anion Gap 4 (5-15); BUN 21 mg/dL (7-18); BUN/Creat Ratio 35.5 RATIO (10-20); Calcium,Total 9.5 mg/dL (8.5-10.1); Chloride 106 mmol/L (98-107); Creatinine, Serum 0.59 mg/dL (0.55-1.02); EST Glomerular Filtration Rate 106 mL/min (>60); Est Glom Filt Rate - Afr Amer 129 mL/min (>60); Glucose 83 mg/dL (74-106); Potassium 4.6 mmol/L (3.5-5.1); Sodium Level 140 mmol/L (136-145)
== END ==
LOC: OLS.WHLEAS 04:00
PROVIDERS: PCP Family Medicine; Referring Provider Internal Medicine; Visit Provider Internal Medicine
DX: E11.40 Type 2 diabetes mellitus with diabetic neuropathy, unspecified (principal)
CPT/HCPCS: 36415; 80048; 85025

== ENCOUNTER → 2023-12-11 | Outpatient (REF) | payer MEDICARE, MEDICAID, SELFPAY ==
[2023-12-11 08:07] LABS: Absolute Lymphocyte Count 1.55 X10^3/uL (0.83-4.51); Absolute Neutrophil Count 4.7 X10^3/uL (2.0-7.7); Basophil# 0.04 X10^3/uL; Basophil% 0.6 % (0-1); Hematocrit 42.8 % (37-47); Hemoglobin 12.8 g/dL (12.0-15.0); Lymphocyte # 1.55 X10^3/ul (0.83-4.51); Lymphocyte % 22.7 % (19-41); Mean Corp Hgb Conc 29.9 g/dL (32-36); Mean Corpuscular Hgb 27.8 pg (27.0-32.0); Mean Platelet Vol. 10.5 fl (6.2-12.0); Monocyte# 0.51 X10^3/uL; Monocyte% 7.5 % (0-10); NRBC Flagged by Analyzer 0 % (0-5); Neutrophil % 68.8 % (47-70); Platelet Count 282 K/mm3 (150-450); RBC Distribution Width CV 14.9 % (11.6-14.6); RBC Distribution Width SD 51.8 fl (35.1-43.9); White Blood Count 6.8 K/mm3 (4.4-11.0)
[2023-12-11 08:25] LABS: AST(SGOT) 13 U/L (15-37); Alanine Aminotransfer ALT/SGPT 19 U/L (13-56); Albumin, Serum 2.9 g/dL (3.2-5.0); Alkaline Phosphatase 143 U/L (45-117); Anion Gap 6 (5-15); BUN 18 mg/dL (7-18); BUN/Creat Ratio 27.1 RATIO (10-20); Bilirubin, Direct < 0.05 mg/dL (0.00-0.30); Calcium,Total 9.5 mg/dL (8.5-10.1); Chloride 105 mmol/L (98-107); Creatinine, Serum 0.66 mg/dL (0.55-1.02); EST Glomerular Filtration Rate 93 mL/min (>60); Est Glom Filt Rate - Afr Amer 113 mL/min (>60); Globulin 3.9 g/dL (2.2-4.2); Glucose 86 mg/dL (74-106); Potassium 4.6 mmol/L (3.5-5.1); Protein, Total 6.8 g/dL (6.4-8.2); Sodium Level 140 mmol/L (136-145)
[2023-12-11 08:28] LABS: Digoxin Level 0.52 ng/mL (0.80-2.00)
== END ==
LOC: OLS.WHLEAS 05:00
PROVIDERS: PCP Family Medicine; Referring Provider Internal Medicine; Visit Provider Internal Medicine
DX: I10 Essential (primary) hypertension (principal); E11.40 Type 2 diabetes mellitus with diabetic neuropathy, unspecified
CPT/HCPCS: 36415; 80048; 80076; 80162; 85025